=== PATIENT | male | born 1965 | race Two or more races ===

== ENCOUNTER 2020-02-15 15:24 | Inpatient (IN) | payer OTHER ==
[~2020-02-15] VITALS: Ht 170.2 cm; Wt 130.1 kg
[~2020-02-15 15:24] MED LIST: ASPI-728 PO; HYDR-3971 PO; INSLAN SQ; METF-960 PO; OMEP20 PO
[2020-02-15 17:14] LABS: ABG A-A DIFF O2 589.6 mmHg (10-20.0); ABG CARBOXYHEMOGLOBIN 1.4 % (0.0-1.5); ABG METHEMOGLOBIN 0.3 % (0.0-1.5); ABG OXYGEN CONTENT 18.6 mL/dL (15.0-23.0); ABG OXYGEN SATURATION 96.4 % (95.0-98.0); ABG OXYHEMOGLOBIN 94.8 % (94.0-100.0); ABG PCO2 39 mmHg (35-45); ABG PH 7.386 (7.35-7.450); ABG TOTAL HEMOGLOBIN 13.9 G/dL (12.0-18.0); PO2, ARTERIAL BG 84.2 mmHg (84.0-92.0); SOURCE, BLOOD GAS ARTERIAL; TEMPERATURE, FAHRENHEIT, BG 98.6 FAHREN (96.0-98.6)
[2020-02-15 17:15] LABS: O2 DEVICE,BLOOD GAS NON REBREATHER (ROOM AIR); SITE, BLOOD GAS RT BRACHIAL
[2020-02-15 17:16] LABS: BASOPHILS % (AUTO) 0.1 % (0.0-2.0); EOSINOPHILS % (AUTO) 0.1 % (1.0-6.0); HEMATOCRIT 40.3 % (41-53); HEMOGLOBIN 13.1 g/dL (13.5-17.5); LYMPHOCYTES # (AUTO) 0.5 K/uL (1.0-4.8); LYMPHOCYTES % (AUTO) 14.9 % (22.0-44.0); MEAN CORPUSCULAR HEMOGLOBIN 28.5 pg (26.0-34.0); MEAN CORPUSCULAR HGB CONC 32.6 G/dL (31.0-37.0); MEAN CORPUSCULAR VOLUME 87 fL (80-100); MONOCYTES # (AUTO) 0.4 K/uL (0.1-1.0); MONOCYTES % (AUTO) 11.7 % (2.0-9.0); NEUTROPHILS # (AUTO) 2.5 K/uL (1.8-7.7); NEUTROPHILS % (AUTO) 73.2 % (40.0-70.0); PLATELET COUNT (AUTO) 96 K/uL (150-450); RED BLOOD CELL COUNT(AUTO) 4.61 MIL/uL (4.50-5.90); RED CELL DISTRIBUTION WIDTH 15.6 % (11.5-14.5)
[2020-02-15 17:24] LABS: ANION GAP 8 mmol/L (8-16); CALCIUM, TOTAL 8.2 mg/dL (8.8-10.5); CARBON DIOXIDE 25 mmol/L (22-29); CHLORIDE 103 mmol/L (98-107); CREATININE 1.17 mg/dL (0.60-1.30); GLOMERULAR FILTR. RATE CALC > 60 mL/min (>60); GLUCOSE,RANDOM 248 mg/dL (70-110); POTASSIUM 4.8 mmol/L (3.5-5.1); SODIUM SERUM 136 mmol/L (136-145); UREA NITROGEN, BLOOD 19 mg/dL (7-18)
[2020-02-15 17:29] LABS: D-DIMER 0.55 mg/L FEU (0.00-0.50); INR 0.9 (0.9-1.1); PROTHROMBIN TIME 9.8 SEC (9.4-11.6)
[2020-02-15 17:32] LABS: LACTIC ACID 1.6 mmol/L (0.4-2.0)
[2020-02-15 17:33] LABS: PLATELET MORPHOLOGY COMMENT LARGE PLTS PRESENT
[2020-02-15] MEDS ORDERED: ACETAMINOPHEN 500 MG TABLET PO ONE (17:45)
[2020-02-15 17:49] LABS: ALANINE AMINOTRANSFERASE 86 U/L (12-78); ALBUMIN 2.9 g/dL (3.4-5.0); ALKALINE PHOSPHATASE 216 U/L (46-116); ASPARTATE AMINOTRANSFERASE 110 U/L (15-37); BILIRUBIN,TOTAL 1.4 mg/dL (0.1-1.0); CREATINE KINASE, TOTAL ONLY 374 U/L (39-308); FERRITIN 339 ng/mL (26-388); LACTATE DEHYDROGENASE 560 U/L (85-227); TOTAL PROTEIN, SERUM 7.4 g/dL (6.4-8.2)
[2020-02-15 18:23] LABS: ERYTHROCYTE SEDIMENTATION RATE 36 MM/HR (0-15)
[2020-02-15] MEDS ORDERED: ONDANSETRON HCL 4 MG/2 ML VIAL IVP PRN ×2 (19:00→19:15)
[2020-02-15] MEDS ORDERED: ACETAMINOPHEN 325 MG TABLET PO PRN (19:00)
[2020-02-15] MEDS ORDERED: DEXTROSE 50%-WATER 25 GM/50 ML SYRINGE IVP PRN (19:15)
[2020-02-15] MEDS ORDERED: REMDESIVIR 200 MG in SODIUM CHLORIDE 0.9% 250 ML IV ONE (19:15)
[2020-02-15] MEDS ORDERED: MAGNESIUM SULFATE 2 GM/WATER 50 ML IV PRN (19:15)
[2020-02-15] MEDS ORDERED: MAGNESIUM SULFATE 4 GM/WATER 100 ML IV PRN (19:15)
[2020-02-15] MEDS ORDERED: MAGNESIUM OXIDE 400 MG TABLET PO PRN (19:15)
[2020-02-15] MEDS ORDERED: POTASSIUM CHLORIDE 20 MEQ ER TABLET PO PRN (19:15)
[2020-02-15] MEDS: DEXAMETHASONE SOD PHOS 4 MG/ML VIAL IVP SCH (19:25)
[2020-02-15] MEDS: INSULIN GLARGINE,HUM.REC.ANLOG 100 UNITS/ML SQ SCH (20:36)
[2020-02-15 20:56] LABS: GLUCOSE,POINT OF CARE 234 MG/DL (70-110)
[2020-02-15] MEDS: ZINC SULFATE 220 MG CAPSULE PO SCH (21:16)
[2020-02-15] MEDS: INSULIN LISPRO 100 UNITS/ML SQ PRN (21:17)
[2020-02-15] MEDS: ASCORBIC ACID 500 MG TABLET PO SCH (21:18)
[2020-02-15] MEDS: HEPARIN SODIUM,PORCINE 5,000 UNITS/ML VIAL SQ SCH (23:43)
[2020-02-16] MEDS: ACETAMINOPHEN 325 MG TABLET PO PRN ×2 (03:29→21:40)
[2020-02-16 08:09] LABS: ALBUMIN 2.8 g/dL (3.4-5.0); BILIRUBIN,TOTAL 1.5 mg/dL (0.1-1.0); CREATININE 1.33 mg/dL (0.60-1.30); MAGNESIUM 1.9 mg/dL (1.80-2.40); POTASSIUM 5.1 mmol/L (3.5-5.1); TOTAL PROTEIN, SERUM 7.5 g/dL (6.4-8.2)
[2020-02-16] MEDS: DEXAMETHASONE SOD PHOS 4 MG/ML VIAL IVP SCH (08:23)
[2020-02-16] MEDS: HEPARIN SODIUM,PORCINE 5,000 UNITS/ML VIAL SQ SCH (08:23)
[2020-02-16] MEDS: ZINC SULFATE 220 MG CAPSULE PO SCH ×2 (08:24→21:22)
[2020-02-16] MEDS: ASCORBIC ACID 500 MG TABLET PO SCH ×2 (08:24→21:22)
[2020-02-16] MEDS: INSULIN LISPRO 100 UNITS/ML SQ PRN ×2 (08:26→21:23)
[2020-02-16] MEDS ORDERED: OMEPRAZOLE 20 MG CAPSULE PO SCH (09:00)
[2020-02-16] MEDS: APIXABAN 5 MG TABLET PO SCH ×2 (09:48→21:22)
[2020-02-16 16:07] LABS: ABG A-A DIFF O2 612.7 mmHg (10-20.0); ABG BASE EXCESS -3.5 mmol/L (-2.0-3.0); ABG CARBOXYHEMOGLOBIN 1.6 % (0.0-1.5); ABG HCO3 21.5 mmol/L (22.0-26.0); ABG METHEMOGLOBIN 0.3 % (0.0-1.5); ABG OXYGEN SATURATION 89.9 % (95.0-98.0); ABG OXYHEMOGLOBIN 88.2 % (94.0-100.0); ABG PCO2 43 mmHg (35-45); ABG PH 7.335 (7.35-7.450); ABG TOTAL HEMOGLOBIN 14.5 G/dL (12.0-18.0); PO2, ARTERIAL BG 57.4 mmHg (84.0-92.0); SOURCE, BLOOD GAS ARTERIAL; TEMPERATURE, FAHRENHEIT, BG 98.6 FAHREN (96.0-98.6)
[2020-02-16 16:08] LABS: O2 DEVICE,BLOOD GAS NONREBREATHER (ROOM AIR); SITE, BLOOD GAS LFT RADIAL
[2020-02-16 16:40] LABS: D-DIMER 0.68 mg/L FEU (0.00-0.50)
[2020-02-16 16:51] LABS: C-REACTIVE PROTEIN QUANT 12.04 mg/dL (0.00-0.30)
[2020-02-16] MEDS: REMDESIVIR 100 MG in SODIUM CHLORIDE 0.9% 250 ML IV SCH (17:26)
[2020-02-16 20:00] VITALS: BP 143/86
[2020-02-16 20:20] LABS: GLUCOSE,POINT OF CARE 309 MG/DL (70-110)
[2020-02-16] MEDS: CHOLECALCIFEROL (VIT D3) 2,000 UNITS [50 MCG] TABLET PO SCH (21:22)
[2020-02-16] MEDS: FAMOTIDINE 20 MG TABLET PO SCH (21:22)
[2020-02-16] MEDS: INSULIN GLARGINE,HUM.REC.ANLOG 100 UNITS/ML SQ SCH (21:23)
[2020-02-17] VITALS (16 sets, daily range): BP systolic 104–152; BP diastolic 56–88
[2020-02-17 01:52] LABS: APPEARANCE,URINE CLEAR (CLEAR); GLUCOSE, URINE (UA) >=1000 mg/dL (NEGATIVE); KETONES,URINE >=80 mg/dL (NEGATIVE); LEUKOCYTE ESTERASE ,URINE NEGATIVE (NEGATIVE); NITRATE,URINE NEGATIVE (NEGATIVE); OCCULT BLOOD,URINE MODERATE (NEGATIVE); PROTEIN,URINE POS 1+ (NEGATIVE)
[2020-02-17 01:54] LABS: BILIRUBIN,URINE PRELIM. POSITIVE (NEGATIVE)
[2020-02-17 02:06] LABS: BACTERIA,URINE Few /HPF (None Seen); SQUAMOUS EPITHELIAL CELL,UR Few /LPF (None Seen); WBC,URINE 0-2 /HPF (0-5)
[2020-02-17 02:59] LABS: GLUCOSE,POINT OF CARE 276 MG/DL (70-110)
[2020-02-17 05:28] LABS: BASOPHILS % (AUTO) 0.1 % (0.0-2.0); EOSINOPHILS % (AUTO) 0 % (1.0-6.0); HEMATOCRIT 41.1 % (41-53); HEMOGLOBIN 13.3 g/dL (13.5-17.5); LYMPHOCYTES # (AUTO) 0.5 K/uL (1.0-4.8); LYMPHOCYTES % (AUTO) 9.3 % (22.0-44.0); MEAN CORPUSCULAR HEMOGLOBIN 28.3 pg (26.0-34.0); MEAN CORPUSCULAR HGB CONC 32.4 G/dL (31.0-37.0); MEAN CORPUSCULAR VOLUME 87 fL (80-100); MONOCYTES # (AUTO) 0.8 K/uL (0.1-1.0); MONOCYTES % (AUTO) 13.7 % (2.0-9.0); NEUTROPHILS # (AUTO) 4.5 K/uL (1.8-7.7); NEUTROPHILS % (AUTO) 76.9 % (40.0-70.0); PLATELET COUNT (AUTO) 141 K/uL (150-450); RED BLOOD CELL COUNT(AUTO) 4.72 MIL/uL (4.50-5.90); RED CELL DISTRIBUTION WIDTH 15.9 % (11.5-14.5)
[2020-02-17 06:01] LABS: ALANINE AMINOTRANSFERASE 101 U/L (12-78); ALBUMIN 2.7 g/dL (3.4-5.0); ALKALINE PHOSPHATASE 195 U/L (46-116); ANION GAP 8 mmol/L (8-16); ASPARTATE AMINOTRANSFERASE 101 U/L (15-37); BILIRUBIN,TOTAL 1.1 mg/dL (0.1-1.0); C-REACTIVE PROTEIN QUANT 12.47 mg/dL (0.00-0.30); CALCIUM, TOTAL 8.4 mg/dL (8.8-10.5); CARBON DIOXIDE 25 mmol/L (22-29); CHLORIDE 105 mmol/L (98-107); CREATINE KINASE, TOTAL ONLY 151 U/L (39-308); CREATININE 1.23 mg/dL (0.60-1.30); GLOMERULAR FILTR. RATE CALC > 60 mL/min (>60); GLUCOSE,RANDOM 324 mg/dL (70-110); LACTATE DEHYDROGENASE 681 U/L (85-227); POTASSIUM 4.9 mmol/L (3.5-5.1); SODIUM SERUM 138 mmol/L (136-145); TOTAL PROTEIN, SERUM 7.3 g/dL (6.4-8.2); UREA NITROGEN, BLOOD 33 mg/dL (7-18)
[2020-02-17] MEDS: INSULIN LISPRO 100 UNITS/ML SQ PRN ×3 (07:02→21:23)
[2020-02-17 07:45] LABS: GLUCOSE,POINT OF CARE 262 MG/DL (70-110)
[2020-02-17] MEDS: FAMOTIDINE 20 MG TABLET PO SCH ×2 (08:56→23:19)
[2020-02-17] MEDS: APIXABAN 5 MG TABLET PO SCH (08:56)
[2020-02-17] MEDS: ZINC SULFATE 220 MG CAPSULE PO SCH ×2 (08:56→21:25)
[2020-02-17] MEDS: DEXAMETHASONE SOD PHOS 4 MG/ML VIAL IVP SCH (08:56)
[2020-02-17] MEDS: ASCORBIC ACID 500 MG TABLET PO SCH ×2 (10:50→23:19)
[2020-02-17] MEDS: CHOLECALCIFEROL (VIT D3) 2,000 UNITS [50 MCG] TABLET PO SCH (10:50)
[2020-02-17 11:00] LABS: ABG A-A DIFF O2 627.2 mmHg (10-20.0); ABG BASE EXCESS -2.7 mmol/L (-2.0-3.0); ABG CARBOXYHEMOGLOBIN 0.6 % (0.0-1.5); ABG HCO3 21.9 mmol/L (22.0-26.0); ABG OXYGEN CONTENT 15.9 mL/dL (15.0-23.0); ABG OXYHEMOGLOBIN 80.2 % (94.0-100.0); ABG PCO2 42 mmHg (35-45); ABG PH 7.351 (7.35-7.450); ABG TOTAL HEMOGLOBIN 14.1 G/dL (12.0-18.0); PO2, ARTERIAL BG 43.9 mmHg (84.0-92.0); SOURCE, BLOOD GAS ARTERIAL; TEMPERATURE, FAHRENHEIT, BG 98.5 FAHREN (96.0-98.6)
[2020-02-17 11:01] LABS: ABG OXYGEN SATURATION 80.7 % (95.0-98.0); O2 DEVICE,BLOOD GAS HI FL CANNULA (ROOM AIR); SITE, BLOOD GAS RT BRACHIAL
[2020-02-17] MEDS ORDERED: MIDAZOLAM HCL 2 MG/2 ML VIAL ONE ×3 (11:32→12:36)
[2020-02-17] MEDS ORDERED: FentaNYL CITRATE PF 100 MCG/2 ML VIAL ONE (11:32)
[2020-02-17] MEDS ORDERED: PROPOFOL 1000 MG/ISO-OSM 100 ML IV ONE (11:42)
[2020-02-17] MEDS ORDERED: HEPARIN SODIUM 1000 UNITS/NS 500 ML ONE (11:44)
[2020-02-17] MEDS: PROPOFOL 1000 MG/ISO-OSM 100 ML IV PRN ×4 (12:45→21:21)
[2020-02-17 13:30] LABS: ABG A-A DIFF O2 597.3 mmHg (10-20.0); ABG BASE EXCESS -4.9 mmol/L (-2.0-3.0); ABG CARBOXYHEMOGLOBIN 0.3 % (0.0-1.5); ABG HCO3 20.7 mmol/L (22.0-26.0); ABG METHEMOGLOBIN 0.1 % (0.0-1.5); ABG OXYGEN CONTENT 17.8 mL/dL (15.0-23.0); ABG OXYGEN SATURATION 95.4 % (95.0-98.0); ABG PCO2 39 mmHg (35-45); ABG PH 7.347 (7.35-7.450); ABG TOTAL HEMOGLOBIN 13.3 G/dL (12.0-18.0); PO2, ARTERIAL BG 78.3 mmHg (84.0-92.0); SOURCE, BLOOD GAS ARTERIAL; TEMPERATURE, FAHRENHEIT, BG 97.7 FAHREN (96.0-98.6)
[2020-02-17 13:31] LABS: O2 DEVICE,BLOOD GAS VENTILATOR (ROOM AIR); PEEP,BG 8 cm H2O; SITE, BLOOD GAS ARTERIAL LINE; SPONTANEOUS VT, BG 580 ml; VENT MODE, BG Press. Control Vent (ROOM AIR)
[2020-02-17] MEDS ORDERED: NOREPINEPHRINE 4 MG/D5%-WATER 250 ML IV PRN (14:00)
[2020-02-17] MEDS: FentaNYL CITRATE PF 500 MCG in DEXTROSE 5%-WATER 90 ML IV PRN (14:24)
[2020-02-17] MEDS: CISATRACURIUM BESYLATE 50 MG in DEXTROSE 5%-WATER 245 ML IV PRN (15:03)
[2020-02-17] MEDS ORDERED: HEPARIN SODIUM 25000 UNITS/D5W 250 ML IV PRN (16:30)
[2020-02-17] MEDS ORDERED: HEPARIN SODIUM,PORCINE 5,000 UNITS/ML VIAL IVP PRN ×2 (16:30)
[2020-02-17] MEDS: REMDESIVIR 100 MG in SODIUM CHLORIDE 0.9% 250 ML IV SCH (17:35)
[2020-02-17 17:36] LABS: EOSINOPHILS % (AUTO) 0 % (1.0-6.0); HEMOGLOBIN 12.5 g/dL (13.5-17.5); LYMPHOCYTES # (AUTO) 0.4 K/uL (1.0-4.8); LYMPHOCYTES % (AUTO) 7.9 % (22.0-44.0); MEAN CORPUSCULAR HEMOGLOBIN 28.5 pg (26.0-34.0); MEAN CORPUSCULAR HGB CONC 32.9 G/dL (31.0-37.0); MEAN CORPUSCULAR VOLUME 87 fL (80-100); MONOCYTES # (AUTO) 0.6 K/uL (0.1-1.0); MONOCYTES % (AUTO) 11.2 % (2.0-9.0); NEUTROPHILS # (AUTO) 4.3 K/uL (1.8-7.7); NEUTROPHILS % (AUTO) 80.9 % (40.0-70.0); PLATELET COUNT (AUTO) 130 K/uL (150-450); RED BLOOD CELL COUNT(AUTO) 4.38 MIL/uL (4.50-5.90); RED CELL DISTRIBUTION WIDTH 15.4 % (11.5-14.5)
[2020-02-17 18:00] LABS: GLUCOSE,POINT OF CARE 311 MG/DL (70-110)
[2020-02-17 18:00] LABS: GLUCOSE,POINT OF CARE 315 MG/DL (70-110)
[2020-02-17 19:35] LABS: PROTHROMBIN TIME 10.9 SEC (9.4-11.6)
[2020-02-17 19:44] LABS: GLUCOSE,POINT OF CARE 334 MG/DL (70-110)
[2020-02-17] MEDS: INSULIN GLARGINE,HUM.REC.ANLOG 100 UNITS/ML SQ SCH (21:24)
[2020-02-18] VITALS (22 sets, daily range): BP systolic 99–158; BP diastolic 49–84
[2020-02-18] MEDS: PROPOFOL 1000 MG/ISO-OSM 100 ML IV PRN ×9 (00:28→23:51)
[2020-02-18] MEDS: FentaNYL CITRATE PF 500 MCG in DEXTROSE 5%-WATER 90 ML IV PRN ×2 (01:48→13:01)
[2020-02-18 05:44] LABS: BASOPHILS % (AUTO) 0.1 % (0.0-2.0); EOSINOPHILS % (AUTO) 0 % (1.0-6.0); HEMATOCRIT 38.6 % (41-53); HEMOGLOBIN 12.3 g/dL (13.5-17.5); LYMPHOCYTES # (AUTO) 0.5 K/uL (1.0-4.8); MEAN CORPUSCULAR HEMOGLOBIN 28.1 pg (26.0-34.0); MEAN CORPUSCULAR VOLUME 88 fL (80-100); MONOCYTES # (AUTO) 0.8 K/uL (0.1-1.0); MONOCYTES % (AUTO) 12.5 % (2.0-9.0); NEUTROPHILS % (AUTO) 79.4 % (40.0-70.0); PLATELET COUNT (AUTO) 139 K/uL (150-450); RED CELL DISTRIBUTION WIDTH 15.9 % (11.5-14.5)
[2020-02-18 06:10] LABS: ALBUMIN 2.4 g/dL (3.4-5.0); BILIRUBIN,TOTAL 0.9 mg/dL (0.1-1.0); C-REACTIVE PROTEIN QUANT 7.34 mg/dL (0.00-0.30); CREATININE 1.42 mg/dL (0.60-1.30); POTASSIUM 4.7 mmol/L (3.5-5.1); TOTAL PROTEIN, SERUM 6.3 g/dL (6.4-8.2)
[2020-02-18] MEDS ORDERED: LIDOCAINE/PF 2% 5 ML SYRINGE IVP ONE (06:31)
[2020-02-18] MEDS ORDERED: ROCURONIUM BROMIDE 10 MG/ML 5 ML VIAL IVP ONE (06:31)
[2020-02-18] MEDS ORDERED: 0.9% SODIUM CHLORIDE 10 ML VIAL IVP ONE (06:31)
[2020-02-18] MEDS ORDERED: ETOMIDATE 2 MG/ML 10 ML VIAL IVP ONE (06:31)
[2020-02-18 07:45] LABS: GLUCOSE,POINT OF CARE 358 MG/DL (70-110)
[2020-02-18] MEDS: INSULIN LISPRO 100 UNITS/ML SQ PRN ×4 (07:48→23:27)
[2020-02-18] MEDS: PANTOPRAZOLE SODIUM 40 MG/VIAL IVP SCH ×2 (09:15→23:16)
[2020-02-18] MEDS: INSULIN GLARGINE,HUM.REC.ANLOG 100 UNITS/ML SQ SCH ×2 (09:16→23:26)
[2020-02-18] MEDS: DEXAMETHASONE SOD PHOS 4 MG/ML VIAL IVP SCH (09:16)
[2020-02-18 12:28] LABS: GLUCOSE,POINT OF CARE 321 MG/DL (70-110)
[2020-02-18 14:49] LABS: ABG A-A DIFF O2 543.5 mmHg (10-20.0); ABG BASE EXCESS -0.6 mmol/L (-2.0-3.0); ABG CARBOXYHEMOGLOBIN 0.4 % (0.0-1.5); ABG METHEMOGLOBIN 0.3 % (0.0-1.5); ABG OXYGEN CONTENT 17.2 mL/dL (15.0-23.0); ABG OXYGEN SATURATION 93.2 % (95.0-98.0); ABG OXYHEMOGLOBIN 92.5 % (94.0-100.0); ABG PCO2 38 mmHg (35-45); ABG TOTAL HEMOGLOBIN 13.2 G/dL (12.0-18.0); PO2, ARTERIAL BG 62.3 mmHg (84.0-92.0); SOURCE, BLOOD GAS ARTERIAL; TEMPERATURE, FAHRENHEIT, BG 96.4 FAHREN (96.0-98.6)
[2020-02-18 14:50] LABS: O2 DEVICE,BLOOD GAS VENTILATOR (ROOM AIR); PEEP,BG 8 cm H2O; SITE, BLOOD GAS ARTERIAL LINE; VENT MODE, BG Press. Control Vent (ROOM AIR); VT, ABG 580 ml
[2020-02-18] MEDS: REMDESIVIR 100 MG in SODIUM CHLORIDE 0.9% 250 ML IV SCH (17:13)
[2020-02-18 19:26] LABS: GLUCOSE,POINT OF CARE 300 MG/DL (70-110)
[2020-02-18] MEDS: CISATRACURIUM BESYLATE 50 MG in DEXTROSE 5%-WATER 245 ML IV PRN (22:32)
[2020-02-18] MEDS ORDERED: SODIUM CHLORIDE 0.9% 250 ML IV ONE (23:37)
[2020-02-19] VITALS (12 sets, daily range): BP systolic 100–145; BP diastolic 56–81
[2020-02-19] MEDS: FentaNYL CITRATE PF 500 MCG in DEXTROSE 5%-WATER 90 ML IV PRN ×4 (00:08→18:46)
[2020-02-19] MEDS: CISATRACURIUM BESYLATE 50 MG in DEXTROSE 5%-WATER 245 ML IV PRN ×6 (01:28→23:41)
[2020-02-19] MEDS ORDERED: PNEUMOCOCCAL VACCINE POLYVALENT 0.5 ML VIAL [PPSV23] IM ONE (01:30)
[2020-02-19] MEDS ORDERED: INFLUENZA VIRUS VACCINE QVS 2020-21 (6MO+)/PF 60 MCG/0.5 ML SYRINGE IM ONE (01:30)
[2020-02-19] MEDS: PROPOFOL 1000 MG/ISO-OSM 100 ML IV PRN ×8 (01:53→21:51)
[2020-02-19 03:25] LABS: GLUCOSE,POINT OF CARE 299 MG/DL (70-110)
[2020-02-19 05:13] LABS: BASOPHILS % (AUTO) 0.1 % (0.0-2.0); EOSINOPHILS % (AUTO) 0.3 % (1.0-6.0); HEMATOCRIT 37.7 % (41-53); HEMOGLOBIN 12.3 g/dL (13.5-17.5); LYMPHOCYTES # (AUTO) 0.6 K/uL (1.0-4.8); LYMPHOCYTES % (AUTO) 7.1 % (22.0-44.0); MEAN CORPUSCULAR HEMOGLOBIN 28.3 pg (26.0-34.0); MEAN CORPUSCULAR HGB CONC 32.7 G/dL (31.0-37.0); MEAN CORPUSCULAR VOLUME 86 fL (80-100); MONOCYTES # (AUTO) 0.7 K/uL (0.1-1.0); MONOCYTES % (AUTO) 9.4 % (2.0-9.0); NEUTROPHILS # (AUTO) 6.4 K/uL (1.8-7.7); NEUTROPHILS % (AUTO) 83.1 % (40.0-70.0); PLATELET COUNT (AUTO) 137 K/uL (150-450); RED BLOOD CELL COUNT(AUTO) 4.36 MIL/uL (4.50-5.90); RED CELL DISTRIBUTION WIDTH 15.4 % (11.5-14.5)
[2020-02-19] MEDS: INSULIN LISPRO 100 UNITS/ML SQ PRN ×4 (05:25→23:33)
[2020-02-19 05:32] LABS: ALANINE AMINOTRANSFERASE 62 U/L (12-78); ALBUMIN 2.2 g/dL (3.4-5.0); ALKALINE PHOSPHATASE 170 U/L (46-116); ANION GAP 6 mmol/L (8-16); ASPARTATE AMINOTRANSFERASE 46 U/L (15-37); C-REACTIVE PROTEIN QUANT 6.68 mg/dL (0.00-0.30); CALCIUM, TOTAL 7.7 mg/dL (8.8-10.5); CARBON DIOXIDE 26 mmol/L (22-29); CHLORIDE 105 mmol/L (98-107); CREATININE 0.99 mg/dL (0.60-1.30); GLOMERULAR FILTR. RATE CALC > 60 mL/min (>60); GLUCOSE,RANDOM 360 mg/dL (70-110); POTASSIUM 4.1 mmol/L (3.5-5.1); SODIUM SERUM 137 mmol/L (136-145); TOTAL PROTEIN, SERUM 6.1 g/dL (6.4-8.2); UREA NITROGEN, BLOOD 32 mg/dL (7-18)
[2020-02-19 05:33] LABS: GLUCOSE,POINT OF CARE 317 MG/DL (70-110)
[2020-02-19] MEDS: DEXAMETHASONE SOD PHOS 4 MG/ML VIAL IVP SCH (08:44)
[2020-02-19] MEDS: PANTOPRAZOLE SODIUM 40 MG/VIAL IVP SCH ×2 (08:44→20:20)
[2020-02-19] MEDS: INSULIN GLARGINE,HUM.REC.ANLOG 100 UNITS/ML SQ SCH ×2 (08:47→20:22)
[2020-02-19 12:07] LABS: ABG A-A DIFF O2 536.7 mmHg (10-20.0); ABG BASE EXCESS -5.6 mmol/L (-2.0-3.0); ABG CARBOXYHEMOGLOBIN 1.6 % (0.0-1.5); ABG METHEMOGLOBIN 0.3 % (0.0-1.5); ABG OXYGEN CONTENT 16.5 mL/dL (15.0-23.0); ABG OXYGEN SATURATION 84.8 % (95.0-98.0); ABG OXYHEMOGLOBIN 83.2 % (94.0-100.0); ABG PCO2 56 mmHg (35-45); ABG PH 7.216 (7.35-7.450); ABG TOTAL HEMOGLOBIN 14.1 G/dL (12.0-18.0); PO2, ARTERIAL BG 51.7 mmHg (84.0-92.0); SOURCE, BLOOD GAS ARTERIAL; TEMPERATURE, FAHRENHEIT, BG 95.6 FAHREN (96.0-98.6)
[2020-02-19 12:08] LABS: O2 DEVICE,BLOOD GAS VENTILATOR (ROOM AIR); PEEP,BG 8 cm H2O; SITE, BLOOD GAS ARTERIAL LINE; VENT MODE, BG Press. Control Vent (ROOM AIR)
[2020-02-19] MEDS ORDERED: SODIUM CHLORIDE 0.9% 250 ML IV ONE ×2 (12:25→22:39)
[2020-02-19] MEDS ORDERED: DEXTROSE 50%-WATER 25 GM/50 ML SYRINGE IVP PRN (12:45)
[2020-02-19] MEDS: ZINC SULFATE 220 MG CAPSULE PO SCH ×2 (13:13→20:20)
[2020-02-19] MEDS: ASCORBIC ACID 500 MG TABLET PO SCH ×2 (13:13→20:20)
[2020-02-19] MEDS: CHOLECALCIFEROL (VIT D3) 1,000 UNITS [25 MCG] TABLET PO SCH (13:13)
[2020-02-19 13:27] LABS: GLUCOSE,POINT OF CARE 333 MG/DL (70-110)
[2020-02-19 14:46] LABS: ABG A-A DIFF O2 465.4 mmHg (10-20.0); ABG BASE EXCESS -3.1 mmol/L (-2.0-3.0); ABG CARBOXYHEMOGLOBIN 0.9 % (0.0-1.5); ABG METHEMOGLOBIN 0.3 % (0.0-1.5); ABG OXYGEN CONTENT 16.5 mL/dL (15.0-23.0); ABG OXYGEN SATURATION 86.5 % (95.0-98.0); ABG OXYHEMOGLOBIN 85.5 % (94.0-100.0); ABG PCO2 54 mmHg (35-45); ABG PH 7.262 (7.35-7.450); ABG TOTAL HEMOGLOBIN 13.7 G/dL (12.0-18.0); O2 DEVICE,BLOOD GAS VENTILATOR (ROOM AIR); PEEP,BG 10 cm H2O; PO2, ARTERIAL BG 51.5 mmHg (84.0-92.0); SITE, BLOOD GAS ARTERIAL LINE; SOURCE, BLOOD GAS ARTERIAL; TEMPERATURE, FAHRENHEIT, BG 95.8 FAHREN (96.0-98.6); VENT MODE, BG Press. Control Vent (ROOM AIR)
[2020-02-19] MEDS: REMDESIVIR 100 MG in SODIUM CHLORIDE 0.9% 250 ML IV SCH (17:13)
[2020-02-19 17:49] LABS: GLUCOSE,POINT OF CARE 384 MG/DL (70-110)
[2020-02-19] MEDS: APIXABAN 2.5 MG TABLET PO SCH (20:20)
[2020-02-19] MEDS ORDERED: APIXABAN 5 MG TABLET PO SCH (21:00)
[2020-02-19] MEDS ORDERED: SODIUM CHLORIDE 0.9% 500 ML IV ONE (21:53)
[2020-02-19 23:31] LABS: GLUCOSE,POINT OF CARE 349 MG/DL (70-110)
[2020-02-20] VITALS (7 sets, daily range): BP systolic 96–173; BP diastolic 53–78
[2020-02-20] MEDS: PROPOFOL 1000 MG/ISO-OSM 100 ML IV PRN ×8 (00:28→22:42)
[2020-02-20] MEDS: FentaNYL CITRATE PF 500 MCG in DEXTROSE 5%-WATER 90 ML IV PRN ×4 (01:23→19:56)
[2020-02-20 01:45] LABS: GLUCOSE,POINT OF CARE 375 MG/DL (70-110)
[2020-02-20] MEDS: CISATRACURIUM BESYLATE 50 MG in DEXTROSE 5%-WATER 245 ML IV PRN ×5 (03:33→23:20)
[2020-02-20] MEDS: INSULIN LISPRO 100 UNITS/ML SQ PRN ×4 (05:41→20:58)
[2020-02-20 05:59] LABS: BASOPHILS % (AUTO) 0.1 % (0.0-2.0); EOSINOPHILS % (AUTO) 1.7 % (1.0-6.0); HEMATOCRIT 39.7 % (41-53); HEMOGLOBIN 13.1 g/dL (13.5-17.5); LYMPHOCYTES # (AUTO) 0.8 K/uL (1.0-4.8); LYMPHOCYTES % (AUTO) 9.8 % (22.0-44.0); MEAN CORPUSCULAR HEMOGLOBIN 28.7 pg (26.0-34.0); MEAN CORPUSCULAR VOLUME 87 fL (80-100); MONOCYTES # (AUTO) 0.7 K/uL (0.1-1.0); MONOCYTES % (AUTO) 7.7 % (2.0-9.0); NEUTROPHILS % (AUTO) 80.7 % (40.0-70.0); PLATELET COUNT (AUTO) 116 K/uL (150-450); RED BLOOD CELL COUNT(AUTO) 4.57 MIL/uL (4.50-5.90); RED CELL DISTRIBUTION WIDTH 15.5 % (11.5-14.5)
[2020-02-20 06:27] LABS: ALANINE AMINOTRANSFERASE 67 U/L (12-78); ALBUMIN 2.4 g/dL (3.4-5.0); ALKALINE PHOSPHATASE 194 U/L (46-116); ANION GAP 5 mmol/L (8-16); ASPARTATE AMINOTRANSFERASE 42 U/L (15-37); BILIRUBIN,TOTAL 1.3 mg/dL (0.1-1.0); C-REACTIVE PROTEIN QUANT 11.09 mg/dL (0.00-0.30); CALCIUM, TOTAL 8.1 mg/dL (8.8-10.5); CARBON DIOXIDE 28 mmol/L (22-29); CHLORIDE 102 mmol/L (98-107); GLOMERULAR FILTR. RATE CALC > 60 mL/min (>60); GLUCOSE,RANDOM 364 mg/dL (70-110); POTASSIUM 4.5 mmol/L (3.5-5.1); SODIUM SERUM 135 mmol/L (136-145); UREA NITROGEN, BLOOD 33 mg/dL (7-18)
[2020-02-20 07:05] LABS: GLUCOSE,POINT OF CARE 315 MG/DL (70-110)
[2020-02-20] MEDS: DEXAMETHASONE SOD PHOS 4 MG/ML VIAL IVP SCH (09:10)
[2020-02-20] MEDS: ZINC SULFATE 220 MG CAPSULE PO SCH ×2 (09:10→20:37)
[2020-02-20] MEDS: CHOLECALCIFEROL (VIT D3) 1,000 UNITS [25 MCG] TABLET PO SCH (09:11)
[2020-02-20] MEDS: ASCORBIC ACID 500 MG TABLET PO SCH ×2 (09:11→20:37)
[2020-02-20] MEDS: APIXABAN 2.5 MG TABLET PO SCH ×2 (09:11→20:37)
[2020-02-20] MEDS: PANTOPRAZOLE SODIUM 40 MG/VIAL IVP SCH ×2 (09:13→20:37)
[2020-02-20] MEDS: INSULIN GLARGINE,HUM.REC.ANLOG 100 UNITS/ML SQ SCH ×2 (09:14→20:57)
[2020-02-20 12:59] LABS: GLUCOSE,POINT OF CARE 314 MG/DL (70-110)
[2020-02-20 17:02] LABS: ABG BASE EXCESS 0.5 mmol/L (-2.0-3.0); ABG CARBOXYHEMOGLOBIN 1.1 % (0.0-1.5); ABG METHEMOGLOBIN 0.3 % (0.0-1.5); ABG OXYGEN CONTENT 17.1 mL/dL (15.0-23.0); ABG OXYGEN SATURATION 88.7 % (95.0-98.0); ABG OXYHEMOGLOBIN 87.5 % (94.0-100.0); ABG TOTAL HEMOGLOBIN 13.9 G/dL (12.0-18.0); PO2, ARTERIAL BG 60.2 mmHg (84.0-92.0); SOURCE, BLOOD GAS ARTERIAL; TEMPERATURE, FAHRENHEIT, BG 97.4 FAHREN (96.0-98.6)
[2020-02-20 17:15] LABS: ABG PCO2 75 mmHg (35-45); ABG PH 7.199 (7.35-7.450); O2 DEVICE,BLOOD GAS VENTILATOR (ROOM AIR); SITE, BLOOD GAS ARTERIAL LINE
[2020-02-20 17:16] LABS: INSPIRATORY TIME, BG 1.2 SEC; PEEP,BG 12 cm H2O; VENT MODE, BG Press. Control Vent (ROOM AIR)
[2020-02-20 18:19] LABS: GLUCOSE,POINT OF CARE 343 MG/DL (70-110)
[2020-02-20] MEDS ORDERED: SODIUM CHLORIDE 0.9% 250 ML IV ONE (20:35)
[2020-02-21] VITALS: BP 123/72
[2020-02-21] MEDS: INSULIN LISPRO 100 UNITS/ML SQ PRN ×4 (00:28→17:17)
[2020-02-21] MEDS: FentaNYL CITRATE PF 500 MCG in DEXTROSE 5%-WATER 90 ML IV PRN ×4 (01:08→19:55)
[2020-02-21] MEDS: PROPOFOL 1000 MG/ISO-OSM 100 ML IV PRN ×6 (02:33→21:54)
[2020-02-21 04:00] VITALS: BP 107/55
[2020-02-21] MEDS: CISATRACURIUM BESYLATE 50 MG in DEXTROSE 5%-WATER 245 ML IV PRN ×4 (04:53→20:00)
[2020-02-21 06:13] LABS: ALANINE AMINOTRANSFERASE 63 U/L (12-78); ALKALINE PHOSPHATASE 167 U/L (46-116); ANION GAP 6 mmol/L (8-16); ASPARTATE AMINOTRANSFERASE 46 U/L (15-37); BILIRUBIN,TOTAL 1.2 mg/dL (0.1-1.0); C-REACTIVE PROTEIN QUANT 8.59 mg/dL (0.00-0.30); CALCIUM, TOTAL 7.7 mg/dL (8.8-10.5); CARBON DIOXIDE 28 mmol/L (22-29); CHLORIDE 99 mmol/L (98-107); CREATININE 1.14 mg/dL (0.60-1.30); GLOMERULAR FILTR. RATE CALC > 60 mL/min (>60); GLUCOSE,RANDOM 295 mg/dL (70-110); POTASSIUM 4.1 mmol/L (3.5-5.1); SODIUM SERUM 133 mmol/L (136-145); UREA NITROGEN, BLOOD 31 mg/dL (7-18)
[2020-02-21 07:01] LABS: GLUCOSE,POINT OF CARE 265 MG/DL (70-110)
[2020-02-21 07:01] LABS: GLUCOSE,POINT OF CARE 290 MG/DL (70-110)
[2020-02-21 07:01] LABS: GLUCOSE,POINT OF CARE 312 MG/DL (70-110)
[2020-02-21 08:00] VITALS: BP 110/60
[2020-02-21] MEDS: PANTOPRAZOLE SODIUM 40 MG/VIAL IVP SCH ×2 (09:28→20:17)
[2020-02-21] MEDS: APIXABAN 2.5 MG TABLET PO SCH ×2 (09:30→20:17)
[2020-02-21] MEDS: DEXAMETHASONE SOD PHOS 4 MG/ML VIAL IVP SCH (09:30)
[2020-02-21] MEDS: CHOLECALCIFEROL (VIT D3) 1,000 UNITS [25 MCG] TABLET PO SCH (09:30)
[2020-02-21] MEDS: ASCORBIC ACID 500 MG TABLET PO SCH ×2 (09:31→20:17)
[2020-02-21] MEDS: ZINC SULFATE 220 MG CAPSULE PO SCH ×2 (10:03→20:17)
[2020-02-21] MEDS: INSULIN GLARGINE,HUM.REC.ANLOG 100 UNITS/ML SQ SCH ×2 (11:48→20:48)
[2020-02-21 11:52] LABS: GLUCOSE,POINT OF CARE 243 MG/DL (70-110)
[2020-02-21 12:00] VITALS: BP 153/68
[2020-02-21 16:00] VITALS: BP 109/58
[2020-02-21 16:44] LABS: ABG A-A DIFF O2 376.1 mmHg (10-20.0); ABG BASE EXCESS 1.1 mmol/L (-2.0-3.0); ABG CARBOXYHEMOGLOBIN 1.5 % (0.0-1.5); ABG HCO3 25.2 mmol/L (22.0-26.0); ABG METHEMOGLOBIN 0.3 % (0.0-1.5); ABG OXYGEN CONTENT 16.1 mL/dL (15.0-23.0); ABG OXYGEN SATURATION 95.3 % (95.0-98.0); ABG OXYHEMOGLOBIN 93.6 % (94.0-100.0); ABG PCO2 44 mmHg (35-45); ABG TOTAL HEMOGLOBIN 12.2 G/dL (12.0-18.0); PO2, ARTERIAL BG 75.7 mmHg (84.0-92.0); SOURCE, BLOOD GAS ARTERIAL; TEMPERATURE, FAHRENHEIT, BG 98.6 FAHREN (96.0-98.6)
[2020-02-21 16:47] LABS: O2 DEVICE,BLOOD GAS VENTILATOR (ROOM AIR); SITE, BLOOD GAS ARTERIAL LINE; VENT MODE, BG Press. Control Vent (ROOM AIR)
[2020-02-21 16:48] LABS: INSPIRATORY TIME, BG 0.9 SEC; PEEP,BG 14 cm H2O; VT, ABG 500 ml
[2020-02-21 20:00] VITALS: BP 145/74
[2020-02-22] VITALS: BP 115/59
[2020-02-22] MEDS ORDERED: SODIUM CHLORIDE 0.9% 250 ML IV ONE ×2 (00:16→08:57)
[2020-02-22] MEDS: FentaNYL CITRATE PF 500 MCG in DEXTROSE 5%-WATER 90 ML IV PRN ×7 (01:17→23:38)
[2020-02-22 02:04] LABS: GLUCOSE,POINT OF CARE 337 MG/DL (70-110)
[2020-02-22 02:04] LABS: GLUCOSE,POINT OF CARE 325 MG/DL (70-110)
[2020-02-22] MEDS: CISATRACURIUM BESYLATE 50 MG in DEXTROSE 5%-WATER 245 ML IV PRN ×5 (03:26→20:38)
[2020-02-22] MEDS: PROPOFOL 1000 MG/ISO-OSM 100 ML IV PRN ×8 (03:39→22:08)
[2020-02-22 04:00] VITALS: BP 126/67
[2020-02-22] MEDS: INSULIN LISPRO 100 UNITS/ML SQ PRN ×3 (05:24→17:25)
[2020-02-22 06:07] LABS: BASOPHILS % (AUTO) 0.3 % (0.0-2.0); EOSINOPHILS % (AUTO) 2.1 % (1.0-6.0); HEMATOCRIT 37.6 % (41-53); HEMOGLOBIN 12.2 g/dL (13.5-17.5); LYMPHOCYTES # (AUTO) 0.9 K/uL (1.0-4.8); LYMPHOCYTES % (AUTO) 7.7 % (22.0-44.0); MEAN CORPUSCULAR HEMOGLOBIN 28.3 pg (26.0-34.0); MEAN CORPUSCULAR HGB CONC 32.6 G/dL (31.0-37.0); MEAN CORPUSCULAR VOLUME 87 fL (80-100); MONOCYTES # (AUTO) 0.8 K/uL (0.1-1.0); MONOCYTES % (AUTO) 6.8 % (2.0-9.0); NEUTROPHILS # (AUTO) 10.1 K/uL (1.8-7.7); NEUTROPHILS % (AUTO) 83.1 % (40.0-70.0); PLATELET COUNT (AUTO) 147 K/uL (150-450); RED BLOOD CELL COUNT(AUTO) 4.32 MIL/uL (4.50-5.90); RED CELL DISTRIBUTION WIDTH 15.4 % (11.5-14.5)
[2020-02-22 06:08] LABS: GLUCOSE,POINT OF CARE 350 MG/DL (70-110)
[2020-02-22 06:30] LABS: ALANINE AMINOTRANSFERASE 70 U/L (12-78); ALBUMIN 2.1 g/dL (3.4-5.0); ALKALINE PHOSPHATASE 177 U/L (46-116); ANION GAP 3 mmol/L (8-16); ASPARTATE AMINOTRANSFERASE 49 U/L (15-37); BILIRUBIN,TOTAL 1.3 mg/dL (0.1-1.0); CARBON DIOXIDE 29 mmol/L (22-29); CHLORIDE 96 mmol/L (98-107); CREATININE 1.18 mg/dL (0.60-1.30); GLOMERULAR FILTR. RATE CALC > 60 mL/min (>60); GLUCOSE,RANDOM 339 mg/dL (70-110); POTASSIUM 4.5 mmol/L (3.5-5.1); SODIUM SERUM 128 mmol/L (136-145); TOTAL PROTEIN, SERUM 6.6 g/dL (6.4-8.2); UREA NITROGEN, BLOOD 31 mg/dL (7-18)
[2020-02-22 08:00] VITALS: BP 116/56
[2020-02-22 08:08] LABS: GLUCOSE,POINT OF CARE 282 MG/DL (70-110)
[2020-02-22] MEDS: DEXAMETHASONE SOD PHOS 4 MG/ML VIAL IVP SCH (08:36)
[2020-02-22] MEDS: PANTOPRAZOLE SODIUM 40 MG/VIAL IVP SCH (08:36)
[2020-02-22] MEDS: CHOLECALCIFEROL (VIT D3) 1,000 UNITS [25 MCG] TABLET PO SCH (08:37)
[2020-02-22] MEDS: ASCORBIC ACID 500 MG TABLET PO SCH ×2 (08:37→20:38)
[2020-02-22] MEDS: ZINC SULFATE 220 MG CAPSULE PO SCH ×2 (08:37→20:37)
[2020-02-22] MEDS: APIXABAN 2.5 MG TABLET PO SCH (08:37)
[2020-02-22] MEDS: INSULIN GLARGINE,HUM.REC.ANLOG 100 UNITS/ML SQ SCH ×2 (08:40→20:37)
[2020-02-22 11:02] LABS: ABG A-A DIFF O2 505.3 mmHg (10-20.0); ABG BASE EXCESS -1.4 mmol/L (-2.0-3.0); ABG CARBOXYHEMOGLOBIN 0.8 % (0.0-1.5); ABG HCO3 22.6 mmol/L (22.0-26.0); ABG METHEMOGLOBIN 0.3 % (0.0-1.5); ABG PCO2 58 mmHg (35-45); ABG PH 7.266 (7.35-7.450); ABG TOTAL HEMOGLOBIN 12.8 G/dL (12.0-18.0); O2 DEVICE,BLOOD GAS VENTILATOR (ROOM AIR); PEEP,BG 12 cm H2O; PO2, ARTERIAL BG 77.4 mmHg (84.0-92.0); SITE, BLOOD GAS ARTERIAL LINE; SOURCE, BLOOD GAS ARTERIAL; TEMPERATURE, FAHRENHEIT, BG 98.6 FAHREN (96.0-98.6); VENT MODE, BG Press. Control Vent (ROOM AIR)
[2020-02-22 11:03] LABS: SPONTANEOUS VT, BG 446 ml
[2020-02-22 11:35] LABS: GLUCOSE,POINT OF CARE 297 MG/DL (70-110)
[2020-02-22] MEDS: METOCLOPRAMIDE HCL 5 MG/ML 2 ML VIAL IVP PRN (11:51)
[2020-02-22 12:00] VITALS: BP 112/61
[2020-02-22 12:36] LABS: GLUCOSE,POINT OF CARE 351 MG/DL (70-110)
[2020-02-22 16:00] VITALS: BP 117/58
[2020-02-22 20:00] VITALS: BP 130/60
[2020-02-22 20:13] LABS: ABG A-A DIFF O2 366.7 mmHg (10-20.0); ABG BASE EXCESS 0.8 mmol/L (-2.0-3.0); ABG CARBOXYHEMOGLOBIN 0.9 % (0.0-1.5); ABG METHEMOGLOBIN 0.3 % (0.0-1.5); ABG OXYGEN CONTENT 16.2 mL/dL (15.0-23.0); ABG OXYHEMOGLOBIN 95.8 % (94.0-100.0); ABG PCO2 43 mmHg (35-45); ABG PH 7.392 (7.35-7.450); O2 DEVICE,BLOOD GAS VENTILATOR (ROOM AIR); PEEP,BG 12 cm H2O; SITE, BLOOD GAS ARTERIAL LINE; SOURCE, BLOOD GAS ARTERIAL; SPONTANEOUS VT, BG 484 ml; TEMPERATURE, FAHRENHEIT, BG 98.6 FAHREN (96.0-98.6); VENT MODE, BG Press. Control Vent (ROOM AIR)
[2020-02-22] MEDS: APIXABAN 5 MG TABLET PO SCH (20:36)
[2020-02-22] MEDS: FAMOTIDINE 10 MG/ML 2 ML VIAL IVP SCH (20:36)
[2020-02-22 20:42] LABS: GLUCOSE,POINT OF CARE 342 MG/DL (70-110)
[2020-02-22 22:43] LABS: GLUCOSE,POINT OF CARE 396 MG/DL (70-110)
[2020-02-23] VITALS: BP 139/73
[2020-02-23] MEDS: PROPOFOL 1000 MG/ISO-OSM 100 ML IV PRN ×10 (00:24→23:06)
[2020-02-23] MEDS: INSULIN LISPRO 100 UNITS/ML SQ PRN ×4 (01:03→18:16)
[2020-02-23] MEDS: CISATRACURIUM BESYLATE 50 MG in DEXTROSE 5%-WATER 245 ML IV PRN ×6 (01:44→23:07)
[2020-02-23] MEDS: FentaNYL CITRATE PF 500 MCG in DEXTROSE 5%-WATER 90 ML IV PRN ×7 (03:10→23:58)
[2020-02-23 04:00] VITALS: BP 127/72
[2020-02-23 04:00] LABS: GLUCOSE,POINT OF CARE 350 MG/DL (70-110)
[2020-02-23 06:30] LABS: GLUCOSE,POINT OF CARE 306 MG/DL (70-110)
[2020-02-23 06:31] LABS: ALBUMIN 1.8 g/dL (3.4-5.0); BILIRUBIN,TOTAL 1.4 mg/dL (0.1-1.0); C-REACTIVE PROTEIN QUANT 12.08 mg/dL (0.00-0.30); CALCIUM, TOTAL 7.6 mg/dL (8.8-10.5); CREATININE 1.66 mg/dL (0.60-1.30); PHOSPHORUS 4.4 mg/dL (2.5-4.9); TOTAL PROTEIN, SERUM 6.2 g/dL (6.4-8.2)
[2020-02-23 06:33] LABS: BASOPHILS % (AUTO) 0.2 % (0.0-2.0); HEMATOCRIT 33.8 % (41-53); LYMPHOCYTES # (AUTO) 0.6 K/uL (1.0-4.8); LYMPHOCYTES % (AUTO) 5.2 % (22.0-44.0); MEAN CORPUSCULAR HEMOGLOBIN 28.2 pg (26.0-34.0); MEAN CORPUSCULAR HGB CONC 32.5 G/dL (31.0-37.0); MEAN CORPUSCULAR VOLUME 87 fL (80-100); MONOCYTES # (AUTO) 1.3 K/uL (0.1-1.0); MONOCYTES % (AUTO) 11.8 % (2.0-9.0); NEUTROPHILS # (AUTO) 9.1 K/uL (1.8-7.7); NEUTROPHILS % (AUTO) 80.8 % (40.0-70.0); PLATELET COUNT (AUTO) 140 K/uL (150-450); RED CELL DISTRIBUTION WIDTH 15.4 % (11.5-14.5)
[2020-02-23] MEDS ORDERED: SODIUM CHLORIDE 0.9% 1,000 ML ONE (07:18)
[2020-02-23 08:00] VITALS: BP 124/69
[2020-02-23] MEDS: SODIUM CHLORIDE 0.9% 1,000 ML IV SCH (08:02)
[2020-02-23] MEDS: CHOLECALCIFEROL (VIT D3) 1,000 UNITS [25 MCG] TABLET PO SCH (08:59)
[2020-02-23] MEDS: FAMOTIDINE 10 MG/ML 2 ML VIAL IVP SCH ×2 (09:00→20:38)
[2020-02-23] MEDS: APIXABAN 5 MG TABLET PO SCH ×2 (09:00→20:38)
[2020-02-23] MEDS: DEXAMETHASONE SOD PHOS 4 MG/ML VIAL IVP SCH (09:00)
[2020-02-23] MEDS: ZINC SULFATE 220 MG CAPSULE PO SCH ×2 (09:01→20:38)
[2020-02-23] MEDS: ASCORBIC ACID 500 MG TABLET PO SCH ×2 (09:01→20:37)
[2020-02-23] MEDS: INSULIN GLARGINE,HUM.REC.ANLOG 100 UNITS/ML SQ SCH ×2 (09:10→20:39)
[2020-02-23] MEDS ORDERED: SODIUM CHLORIDE 0.9% 500 ML IV ONE (10:08)
[2020-02-23 12:00] VITALS: BP 110/49
[2020-02-23 12:39] LABS: ABG A-A DIFF O2 303.9 mmHg (10-20.0); ABG BASE EXCESS -0.2 mmol/L (-2.0-3.0); ABG CARBOXYHEMOGLOBIN 0.7 % (0.0-1.5); ABG HCO3 23.9 mmol/L (22.0-26.0); ABG METHEMOGLOBIN 0.3 % (0.0-1.5); ABG OXYGEN CONTENT 15.7 mL/dL (15.0-23.0); ABG OXYGEN SATURATION 95.5 % (95.0-98.0); ABG OXYHEMOGLOBIN 94.5 % (94.0-100.0); ABG PCO2 49 mmHg (35-45); ABG PH 7.336 (7.35-7.450); ABG TOTAL HEMOGLOBIN 11.8 G/dL (12.0-18.0); PO2, ARTERIAL BG 70.8 mmHg (84.0-92.0); SOURCE, BLOOD GAS ARTERIAL; TEMPERATURE, FAHRENHEIT, BG 97.6 FAHREN (96.0-98.6)
[2020-02-23 12:40] LABS: O2 DEVICE,BLOOD GAS VENTILATOR (ROOM AIR); PEEP,BG 12 cm H2O; SITE, BLOOD GAS ARTERIAL LINE; VENT MODE, BG PC (ROOM AIR)
[2020-02-23 12:47] LABS: GLUCOSE,POINT OF CARE 312 MG/DL (70-110)
[2020-02-23 16:00] VITALS: BP 132/63
[2020-02-23 20:00] VITALS: BP 115/61
[2020-02-23 20:50] LABS: GLUCOSE,POINT OF CARE 369 MG/DL (70-110)
[2020-02-24] VITALS: BP 121/62
[2020-02-24] MEDS: INSULIN LISPRO 100 UNITS/ML SQ PRN ×4 (01:48→18:08)
[2020-02-24] MEDS: FentaNYL CITRATE PF 500 MCG in DEXTROSE 5%-WATER 90 ML IV PRN ×4 (03:11→15:42)
[2020-02-24] MEDS: CISATRACURIUM BESYLATE 50 MG in DEXTROSE 5%-WATER 245 ML IV PRN ×5 (03:11→17:07)
[2020-02-24] MEDS: PROPOFOL 1000 MG/ISO-OSM 100 ML IV PRN ×9 (03:13→23:01)
[2020-02-24] MEDS: SODIUM CHLORIDE 0.9% 1,000 ML IV SCH ×2 (03:13→22:46)
[2020-02-24 04:00] VITALS: BP 129/64
[2020-02-24 05:08] LABS: GLUCOSE,POINT OF CARE 359 MG/DL (70-110)
[2020-02-24 06:08] LABS: ALBUMIN 1.7 g/dL (3.4-5.0); BILIRUBIN,TOTAL 1.6 mg/dL (0.1-1.0); C-REACTIVE PROTEIN QUANT 14.79 mg/dL (0.00-0.30); CALCIUM, TOTAL 7.9 mg/dL (8.8-10.5); CREATININE 1.43 mg/dL (0.60-1.30); POTASSIUM 5.5 mmol/L (3.5-5.1); TOTAL PROTEIN, SERUM 6.5 g/dL (6.4-8.2)
[2020-02-24 06:59] LABS: GLUCOSE,POINT OF CARE 372 MG/DL (70-110)
[2020-02-24 08:00] VITALS: BP 123/62
[2020-02-24] MEDS: INSULIN GLARGINE,HUM.REC.ANLOG 100 UNITS/ML SQ SCH ×2 (09:09→20:29)
[2020-02-24] MEDS: DEXAMETHASONE SOD PHOS 4 MG/ML VIAL IVP SCH (09:09)
[2020-02-24] MEDS: FAMOTIDINE 10 MG/ML 2 ML VIAL IVP SCH ×2 (09:10→20:27)
[2020-02-24] MEDS: ASCORBIC ACID 500 MG TABLET PO SCH ×2 (09:10→20:28)
[2020-02-24] MEDS: APIXABAN 5 MG TABLET PO SCH ×2 (09:10→20:27)
[2020-02-24] MEDS: CHOLECALCIFEROL (VIT D3) 1,000 UNITS [25 MCG] TABLET PO SCH (09:10)
[2020-02-24] MEDS: ZINC SULFATE 220 MG CAPSULE PO SCH ×2 (09:10→20:28)
[2020-02-24] MEDS: AMINO ACIDS/PROTEIN HYDROLYS 30 ML TUBE PO SCH (09:11)
[2020-02-24 10:53] LABS: ABG A-A DIFF O2 363.9 mmHg (10-20.0); ABG BASE EXCESS -1.6 mmol/L (-2.0-3.0); ABG CARBOXYHEMOGLOBIN 1.2 % (0.0-1.5); ABG HCO3 22.2 mmol/L (22.0-26.0); ABG METHEMOGLOBIN 0.3 % (0.0-1.5); ABG OXYGEN CONTENT 15.4 mL/dL (15.0-23.0); ABG OXYGEN SATURATION 92.6 % (95.0-98.0); ABG OXYHEMOGLOBIN 91.2 % (94.0-100.0); ABG PCO2 63 mmHg (35-45); ABG PH 7.231 (7.35-7.450); PO2, ARTERIAL BG 67.4 mmHg (84.0-92.0); SOURCE, BLOOD GAS ARTERIAL; TEMPERATURE, FAHRENHEIT, BG 98.6 FAHREN (96.0-98.6)
[2020-02-24 10:54] LABS: O2 DEVICE,BLOOD GAS VENTILATOR (ROOM AIR); PEEP,BG 10 cm H2O; SITE, BLOOD GAS ARTERIAL LINE; VENT MODE, BG Press. Control Vent (ROOM AIR)
[2020-02-24 10:55] LABS: SPONTANEOUS VT, BG 372 ml
[2020-02-24 12:00] VITALS: BP 138/67
[2020-02-24] MEDS ORDERED: SODIUM POLYSTYRENE SULFONATE 15 GM/60 ML SUSPENSION BOTTLE PO ONE (12:30)
[2020-02-24 16:00] VITALS: BP 124/63
[2020-02-24 18:09] LABS: GLUCOSE,POINT OF CARE 408 MG/DL (70-110)
[2020-02-24 18:36] LABS: GLUCOSE,POINT OF CARE 454 MG/DL (70-110)
[2020-02-24] MEDS: FentaNYL CITRATE PF 500 MCG in SODIUM CHLORIDE 0.9% 90 ML IV PRN ×2 (19:05→22:40)
[2020-02-24] MEDS: CISATRACURIUM BESYLATE 50 MG in SODIUM CHLORIDE 0.9% 245 ML IV PRN ×2 (19:06→22:41)
[2020-02-24 23:29] LABS: GLUCOSE,POINT OF CARE 470 MG/DL (70-110)
[2020-02-25] VITALS: BP 152/67
[2020-02-25] MEDS: INSULIN LISPRO 100 UNITS/ML SQ PRN ×4 (00:25→17:14)
[2020-02-25 01:57] LABS: GLUCOSE,POINT OF CARE 384 MG/DL (70-110)
[2020-02-25] MEDS: FentaNYL CITRATE PF 500 MCG in SODIUM CHLORIDE 0.9% 90 ML IV PRN ×4 (02:04→16:04)
[2020-02-25] MEDS: CISATRACURIUM BESYLATE 50 MG in SODIUM CHLORIDE 0.9% 245 ML IV PRN ×6 (02:04→22:37)
[2020-02-25] MEDS: PROPOFOL 1000 MG/ISO-OSM 100 ML IV PRN ×9 (02:05→22:43)
[2020-02-25 04:00] VITALS: BP 121/59
[2020-02-25 05:41] LABS: GLUCOSE,POINT OF CARE 332 MG/DL (70-110)
[2020-02-25 06:20] LABS: HEMOGLOBIN 10.6 g/dL (13.5-17.5); LYMPHOCYTES # (AUTO) 0.5 K/uL (1.0-4.8); NEUTROPHILS # (AUTO) 7.4 K/uL (1.8-7.7)
[2020-02-25 06:39] LABS: ALANINE AMINOTRANSFERASE 32 U/L (12-78); ALBUMIN 1.6 g/dL (3.4-5.0); ALKALINE PHOSPHATASE 161 U/L (46-116); ANION GAP 6 mmol/L (8-16); ASPARTATE AMINOTRANSFERASE 19 U/L (15-37); BILIRUBIN,TOTAL 1.6 mg/dL (0.1-1.0); CALCIUM, TOTAL 8.1 mg/dL (8.8-10.5); CARBON DIOXIDE 27 mmol/L (22-29); CHLORIDE 93 mmol/L (98-107); GLOMERULAR FILTR. RATE CALC > 60 mL/min (>60); GLUCOSE,RANDOM 356 mg/dL (70-110); POTASSIUM 4.8 mmol/L (3.5-5.1); SODIUM SERUM 126 mmol/L (136-145); TOTAL PROTEIN, SERUM 6.5 g/dL (6.4-8.2); UREA NITROGEN, BLOOD 43 mg/dL (7-18)
[2020-02-25] MEDS ORDERED: SODIUM CHLORIDE 0.9% 250 ML IV ONE ×2 (07:10→20:30)
[2020-02-25 07:14] LABS: BASOPHILS % (AUTO) 0.3 % (0.0-2.0); EOSINOPHILS % (AUTO) 1.4 % (1.0-6.0); HEMATOCRIT 32.1 % (41-53); LYMPHOCYTES % (AUTO) 5.4 % (22.0-44.0); MEAN CORPUSCULAR HEMOGLOBIN 28.7 pg (26.0-34.0); MEAN CORPUSCULAR HGB CONC 33.1 G/dL (31.0-37.0); MEAN CORPUSCULAR VOLUME 87 fL (80-100); MONOCYTES # (AUTO) 1.3 K/uL (0.1-1.0); MONOCYTES % (AUTO) 13.6 % (2.0-9.0); NEUTROPHILS % (AUTO) 79.3 % (40.0-70.0); PLATELET COUNT (AUTO) 151 K/uL (150-450); RED CELL DISTRIBUTION WIDTH 14.7 % (11.5-14.5)
[2020-02-25] MEDS: PIPERACILLIN/TAZO 3.375 GM/D5W 50 ML IV SCH ×3 (07:46→17:26)
[2020-02-25] MEDS: AMINO ACIDS/PROTEIN HYDROLYS 30 ML TUBE PO SCH (07:46)
[2020-02-25] MEDS: CHOLECALCIFEROL (VIT D3) 1,000 UNITS [25 MCG] TABLET PO SCH (07:47)
[2020-02-25] MEDS: FAMOTIDINE 10 MG/ML 2 ML VIAL IVP SCH ×2 (07:47→21:30)
[2020-02-25] MEDS: APIXABAN 5 MG TABLET PO SCH ×2 (07:47→21:30)
[2020-02-25] MEDS: ASCORBIC ACID 500 MG TABLET PO SCH ×2 (07:47→21:30)
[2020-02-25] MEDS: ZINC SULFATE 220 MG CAPSULE PO SCH ×2 (07:47→21:30)
[2020-02-25] MEDS: DEXAMETHASONE SOD PHOS 4 MG/ML VIAL IVP SCH (07:47)
[2020-02-25 08:00] VITALS: BP 135/61
[2020-02-25] MEDS: INSULIN GLARGINE,HUM.REC.ANLOG 100 UNITS/ML SQ SCH ×2 (09:13→21:31)
[2020-02-25] MEDS: FUROSEMIDE 20 MG/2 ML VIAL IVP SCH (11:45)
[2020-02-25 12:00] VITALS: BP 138/66
[2020-02-25 12:28] LABS: PHOSPHORUS 2.9 mg/dL (2.5-4.9)
[2020-02-25 14:33] LABS: GLUCOSE,POINT OF CARE 290 MG/DL (70-110)
[2020-02-25 16:00] VITALS: BP 120/51
[2020-02-25 18:01] LABS: ABG A-A DIFF O2 396.1 mmHg (10-20.0); ABG BASE EXCESS 0.4 mmol/L (-2.0-3.0); ABG CARBOXYHEMOGLOBIN 0.8 % (0.0-1.5); ABG HCO3 24.4 mmol/L (22.0-26.0); ABG METHEMOGLOBIN 0.3 % (0.0-1.5); ABG OXYGEN CONTENT 15.5 mL/dL (15.0-23.0); ABG OXYGEN SATURATION 93.7 % (95.0-98.0); ABG OXYHEMOGLOBIN 92.7 % (94.0-100.0); ABG PCO2 45 mmHg (35-45); ABG PH 7.373 (7.35-7.450); ABG TOTAL HEMOGLOBIN 11.9 G/dL (12.0-18.0); O2 DEVICE,BLOOD GAS VENTILATOR (ROOM AIR); PEEP,BG 10 cm H2O; PO2, ARTERIAL BG 58.2 mmHg (84.0-92.0); SITE, BLOOD GAS ARTERIAL LINE; SOURCE, BLOOD GAS ARTERIAL; VENT MODE, BG Press. Control Vent (ROOM AIR); VT, ABG 450 ml
[2020-02-25 18:02] LABS: INSPIRATORY TIME, BG 0.9 SEC
[2020-02-25 20:00] VITALS: BP 122/64
[2020-02-25 20:49] LABS: GLUCOSE,POINT OF CARE 240 MG/DL (70-110)
[2020-02-26] VITALS: BP 135/69
[2020-02-26] MEDS: FentaNYL CITRATE PF 500 MCG in SODIUM CHLORIDE 0.9% 90 ML IV PRN ×7 (00:19→21:06)
[2020-02-26] MEDS: INSULIN LISPRO 100 UNITS/ML SQ PRN ×4 (00:21→17:12)
[2020-02-26] MEDS ORDERED: SODIUM CHLORIDE 0.9% 250 ML IV ONE (00:26)
[2020-02-26] MEDS: PIPERACILLIN/TAZO 3.375 GM/D5W 50 ML IV SCH ×4 (00:28→17:05)
[2020-02-26 01:07] LABS: GLUCOSE,POINT OF CARE 267 MG/DL (70-110)
[2020-02-26 01:07] LABS: GLUCOSE,POINT OF CARE 216 MG/DL (70-110)
[2020-02-26] MEDS: PROPOFOL 1000 MG/ISO-OSM 100 ML IV PRN ×7 (01:08→20:43)
[2020-02-26] MEDS: CISATRACURIUM BESYLATE 50 MG in SODIUM CHLORIDE 0.9% 245 ML IV PRN ×6 (01:38→21:06)
[2020-02-26 04:00] VITALS: BP 144/80
[2020-02-26 06:10] LABS: HEMOGLOBIN 10.6 g/dL (13.5-17.5); MEAN CORPUSCULAR HEMOGLOBIN 28.2 pg (26.0-34.0); MEAN CORPUSCULAR VOLUME 86 fL (80-100); PLATELET COUNT (AUTO) 172 K/uL (150-450); RED BLOOD CELL COUNT(AUTO) 3.74 MIL/uL (4.50-5.90); RED CELL DISTRIBUTION WIDTH 15.2 % (11.5-14.5)
[2020-02-26 06:44] LABS: ALANINE AMINOTRANSFERASE 28 U/L (12-78); ALBUMIN 1.4 g/dL (3.4-5.0); ALKALINE PHOSPHATASE 161 U/L (46-116); ANION GAP 6 mmol/L (8-16); ASPARTATE AMINOTRANSFERASE 20 U/L (15-37); BILIRUBIN,TOTAL 1.8 mg/dL (0.1-1.0); C-REACTIVE PROTEIN QUANT 18.08 mg/dL (0.00-0.30); CALCIUM, TOTAL 8.1 mg/dL (8.8-10.5); CARBON DIOXIDE 26 mmol/L (22-29); CHLORIDE 98 mmol/L (98-107); CREATININE 1.05 mg/dL (0.60-1.30); GLOMERULAR FILTR. RATE CALC > 60 mL/min (>60); GLUCOSE,RANDOM 203 mg/dL (70-110); PHOSPHORUS 3.3 mg/dL (2.5-4.9); POTASSIUM 3.8 mmol/L (3.5-5.1); SODIUM SERUM 130 mmol/L (136-145); TOTAL PROTEIN, SERUM 6.4 g/dL (6.4-8.2); UREA NITROGEN, BLOOD 37 mg/dL (7-18)
[2020-02-26 08:00] VITALS: BP 135/72
[2020-02-26] MEDS: FUROSEMIDE 20 MG/2 ML VIAL IVP SCH (08:25)
[2020-02-26] MEDS: CHOLECALCIFEROL (VIT D3) 1,000 UNITS [25 MCG] TABLET PO SCH (08:25)
[2020-02-26] MEDS: FAMOTIDINE 10 MG/ML 2 ML VIAL IVP SCH ×2 (08:26→20:41)
[2020-02-26] MEDS: DEXAMETHASONE SOD PHOS 4 MG/ML VIAL IVP SCH (08:26)
[2020-02-26] MEDS: ZINC SULFATE 220 MG CAPSULE PO SCH ×2 (08:27→20:41)
[2020-02-26] MEDS: APIXABAN 5 MG TABLET PO SCH ×2 (08:27→20:41)
[2020-02-26] MEDS: ASCORBIC ACID 500 MG TABLET PO SCH ×2 (08:27→20:41)
[2020-02-26] MEDS: AMINO ACIDS/PROTEIN HYDROLYS 30 ML TUBE PO SCH (08:27)
[2020-02-26] MEDS: INSULIN GLARGINE,HUM.REC.ANLOG 100 UNITS/ML SQ SCH ×2 (08:36→21:05)
[2020-02-26 09:13] LABS: GLUCOSE,POINT OF CARE 182 MG/DL (70-110)
[2020-02-26 09:47] LABS: BAND NEUTROPHILS % (MANUAL) 18 % (0-5); EOSINOPHILS % (MANUAL) 2 % (1-6); LYMPHOCYTES % (MANUAL) 9 % (22-44); METAMYELOCYTES % 2 % (0-0); MONOCYTES % (MANUAL) 7 % (2-9); MYELOCYTES % 1 % (0-0); SEGMENTED NEUTROPHILS % 61 % (40-70)
[2020-02-26 12:00] VITALS: BP 130/63
[2020-02-26 12:17] LABS: ABG A-A DIFF O2 331.5 mmHg (10-20.0); ABG BASE EXCESS 2.6 mmol/L (-2.0-3.0); ABG CARBOXYHEMOGLOBIN 1.6 % (0.0-1.5); ABG HCO3 26.9 mmol/L (22.0-26.0); ABG METHEMOGLOBIN 0.3 % (0.0-1.5); ABG OXYGEN CONTENT 16.4 mL/dL (15.0-23.0); ABG OXYGEN SATURATION 94.5 % (95.0-98.0); ABG OXYHEMOGLOBIN 92.7 % (94.0-100.0); ABG PCO2 34 mmHg (35-45); ABG PH 7.503 (7.35-7.450); ABG TOTAL HEMOGLOBIN 12.6 G/dL (12.0-18.0); PO2, ARTERIAL BG 61.4 mmHg (84.0-92.0)
[2020-02-26 12:18] LABS: O2 DEVICE,BLOOD GAS VENTILATOR (ROOM AIR); SITE, BLOOD GAS ARTERIAL LINE; SOURCE, BLOOD GAS ARTERIAL; VENT MODE, BG Press. Control Vent (ROOM AIR); VT, ABG 530 ml
[2020-02-26 12:19] LABS: INSPIRATORY TIME, BG 0.9 SEC; PEEP,BG 10 cm H2O
[2020-02-26 12:22] LABS: GLUCOSE,POINT OF CARE 154 MG/DL (70-110)
[2020-02-26 16:00] VITALS: BP 129/60
[2020-02-26] MEDS ORDERED: GABAPENTIN 300 MG CAPSULE PO SCH (16:00)
[2020-02-26 16:32] LABS: APPEARANCE,URINE CLEAR (CLEAR); BILIRUBIN,URINE NEGATIVE (NEGATIVE); GLUCOSE, URINE (UA) NEGATIVE (NEGATIVE); KETONES,URINE NEGATIVE (NEGATIVE); LEUKOCYTE ESTERASE ,URINE NEGATIVE (NEGATIVE); NITRATE,URINE NEGATIVE (NEGATIVE); OCCULT BLOOD,URINE TRACE (NEGATIVE); PROTEIN,URINE NEGATIVE (NEGATIVE)
[2020-02-26 16:38] LABS: ABG A-A DIFF O2 327.1 mmHg (10-20.0); ABG BASE EXCESS 2.3 mmol/L (-2.0-3.0); ABG HCO3 26.2 mmol/L (22.0-26.0); ABG METHEMOGLOBIN 0.3 % (0.0-1.5); ABG OXYGEN CONTENT 16.2 mL/dL (15.0-23.0); ABG OXYGEN SATURATION 93.9 % (95.0-98.0); ABG OXYHEMOGLOBIN 92.7 % (94.0-100.0); ABG PCO2 39 mmHg (35-45); ABG PH 7.448 (7.35-7.450); ABG TOTAL HEMOGLOBIN 12.4 G/dL (12.0-18.0); INSPIRATORY TIME, BG 0.9 SEC; O2 DEVICE,BLOOD GAS VENTILATOR (ROOM AIR); PEEP,BG 10 cm H2O; PO2, ARTERIAL BG 60.1 mmHg (84.0-92.0); SOURCE, BLOOD GAS ARTERIAL; VENT MODE, BG Press. Control Vent (ROOM AIR); VT, ABG 460 ml
[2020-02-26 16:39] LABS: SITE, BLOOD GAS ARTERIAL LINE
[2020-02-26 16:45] LABS: BACTERIA,URINE None Seen /HPF (None Seen); SQUAMOUS EPITHELIAL CELL,UR Rare /LPF (None Seen); WBC,URINE 0-2 /HPF (0-5)
[2020-02-26 18:06] LABS: GLUCOSE,POINT OF CARE 243 MG/DL (70-110)
[2020-02-26 20:00] VITALS: BP 107/55
[2020-02-27] VITALS: BP 119/58
[2020-02-27] MEDS: PIPERACILLIN/TAZO 3.375 GM/D5W 50 ML IV SCH ×4 (01:13→18:53)
[2020-02-27] MEDS: INSULIN LISPRO 100 UNITS/ML SQ PRN ×4 (01:14→18:54)
[2020-02-27] MEDS: PROPOFOL 1000 MG/ISO-OSM 100 ML IV PRN ×5 (01:15→23:59)
[2020-02-27] MEDS: CISATRACURIUM BESYLATE 50 MG in SODIUM CHLORIDE 0.9% 245 ML IV PRN ×5 (01:16→21:05)
[2020-02-27] MEDS: FentaNYL CITRATE PF 500 MCG in SODIUM CHLORIDE 0.9% 90 ML IV PRN ×4 (03:59→21:05)
[2020-02-27 04:00] VITALS: BP 87/50
[2020-02-27] MEDS: FUROSEMIDE 20 MG/2 ML VIAL IVP SCH (06:22)
[2020-02-27 07:01] LABS: GLUCOSE,POINT OF CARE 198 MG/DL (70-110)
[2020-02-27 07:01] LABS: GLUCOSE,POINT OF CARE 206 MG/DL (70-110)
[2020-02-27 07:08] LABS: HEMATOCRIT 31.5 % (41-53); HEMOGLOBIN 10.4 g/dL (13.5-17.5); MEAN CORPUSCULAR HEMOGLOBIN 28.4 pg (26.0-34.0); MEAN CORPUSCULAR VOLUME 86 fL (80-100); PLATELET COUNT (AUTO) 193 K/uL (150-450); RED BLOOD CELL COUNT(AUTO) 3.67 MIL/uL (4.50-5.90); RED CELL DISTRIBUTION WIDTH 15.7 % (11.5-14.5)
[2020-02-27 07:26] LABS: ALBUMIN 1.4 g/dL (3.4-5.0); BILIRUBIN,TOTAL 1.3 mg/dL (0.1-1.0); C-REACTIVE PROTEIN QUANT 15.79 mg/dL (0.00-0.30); CALCIUM, TOTAL 8.2 mg/dL (8.8-10.5); CREATININE 1.36 mg/dL (0.60-1.30); POTASSIUM 3.7 mmol/L (3.5-5.1); TOTAL PROTEIN, SERUM 6.4 g/dL (6.4-8.2)
[2020-02-27 07:37] LABS: BAND NEUTROPHILS % (MANUAL) 16 % (0-5); EOSINOPHILS % (MANUAL) 1 % (1-6); LYMPHOCYTES % (MANUAL) 8 % (22-44); METAMYELOCYTES % 1 % (0-0); MONOCYTES % (MANUAL) 9 % (2-9); MYELOCYTES % 1 % (0-0); SEGMENTED NEUTROPHILS % 64 % (40-70)
[2020-02-27 08:00] VITALS: BP 115/54
[2020-02-27] MEDS: AMINO ACIDS/PROTEIN HYDROLYS 30 ML TUBE PO SCH (08:00)
[2020-02-27] MEDS ORDERED: DULoxetine HCL 30 MG CAPSULE PO SCH (09:00)
[2020-02-27] MEDS: ASCORBIC ACID 500 MG TABLET PO SCH ×2 (10:47→20:56)
[2020-02-27] MEDS: ZINC SULFATE 220 MG CAPSULE PO SCH ×2 (10:47→20:56)
[2020-02-27] MEDS: DEXAMETHASONE SOD PHOS 4 MG/ML VIAL IVP SCH (10:48)
[2020-02-27] MEDS: FAMOTIDINE 10 MG/ML 2 ML VIAL IVP SCH ×2 (10:48→20:56)
[2020-02-27] MEDS: APIXABAN 5 MG TABLET PO SCH ×2 (10:48→20:56)
[2020-02-27] MEDS: CHOLECALCIFEROL (VIT D3) 1,000 UNITS [25 MCG] TABLET PO SCH (10:48)
[2020-02-27] MEDS: INSULIN GLARGINE,HUM.REC.ANLOG 100 UNITS/ML SQ SCH ×2 (10:51→21:10)
[2020-02-27 12:00] VITALS: BP 105/50
[2020-02-27 16:00] VITALS: BP 142/63
[2020-02-27 16:44] LABS: GLUCOSE,POINT OF CARE 177 MG/DL (70-110)
[2020-02-27 16:45] LABS: GLUCOSE,POINT OF CARE 161 MG/DL (70-110)
[2020-02-27 20:00] VITALS: BP 142/65
[2020-02-27 21:14] LABS: GLUCOSE,POINT OF CARE 182 MG/DL (70-110)
[2020-02-27 23:41] LABS: GLUCOSE,POINT OF CARE 199 MG/DL (70-110)
[2020-02-28] VITALS: BP 109/54
[2020-02-28] MEDS: INSULIN LISPRO 100 UNITS/ML SQ PRN ×3 (00:03→14:35)
[2020-02-28] MEDS: PIPERACILLIN/TAZO 3.375 GM/D5W 50 ML IV SCH ×4 (00:04→18:37)
[2020-02-28] MEDS: CISATRACURIUM BESYLATE 50 MG in SODIUM CHLORIDE 0.9% 245 ML IV PRN ×5 (01:31→21:46)
[2020-02-28 02:34] LABS: GLUCOSE,POINT OF CARE 190 MG/DL (70-110)
[2020-02-28] MEDS: PROPOFOL 1000 MG/ISO-OSM 100 ML IV PRN ×4 (03:51→23:31)
[2020-02-28] MEDS: FentaNYL CITRATE PF 500 MCG in SODIUM CHLORIDE 0.9% 90 ML IV PRN ×3 (03:51→16:04)
[2020-02-28 04:00] VITALS: BP 140/65
[2020-02-28] MEDS: FUROSEMIDE 20 MG/2 ML VIAL IVP SCH (06:05)
[2020-02-28 06:07] LABS: ALANINE AMINOTRANSFERASE 21 U/L (12-78); ALBUMIN 1.4 g/dL (3.4-5.0); ALKALINE PHOSPHATASE 172 U/L (46-116); ANION GAP 5 mmol/L (8-16); ASPARTATE AMINOTRANSFERASE 19 U/L (15-37); BILIRUBIN,TOTAL 1.2 mg/dL (0.1-1.0); C-REACTIVE PROTEIN QUANT 12.39 mg/dL (0.00-0.30); CALCIUM, TOTAL 8.3 mg/dL (8.8-10.5); CARBON DIOXIDE 27 mmol/L (22-29); CHLORIDE 103 mmol/L (98-107); CREATININE 1.18 mg/dL (0.60-1.30); GLOMERULAR FILTR. RATE CALC > 60 mL/min (>60); GLUCOSE,RANDOM 167 mg/dL (70-110); POTASSIUM 3.4 mmol/L (3.5-5.1); SODIUM SERUM 135 mmol/L (136-145); TOTAL PROTEIN, SERUM 6.6 g/dL (6.4-8.2); UREA NITROGEN, BLOOD 38 mg/dL (7-18)
[2020-02-28 07:12] LABS: GLUCOSE,POINT OF CARE 148 MG/DL (70-110)
[2020-02-28 08:00] VITALS: BP 95/50
[2020-02-28 08:20] LABS: ABG A-A DIFF O2 307.8 mmHg (10-20.0); ABG BASE EXCESS 0.9 mmol/L (-2.0-3.0); ABG CARBOXYHEMOGLOBIN 0.8 % (0.0-1.5); ABG HCO3 25.1 mmol/L (22.0-26.0); ABG METHEMOGLOBIN 0.3 % (0.0-1.5); ABG OXYGEN CONTENT 15.3 mL/dL (15.0-23.0); ABG OXYGEN SATURATION 95.1 % (95.0-98.0); ABG OXYHEMOGLOBIN 94.1 % (94.0-100.0); ABG PCO2 42 mmHg (35-45); ABG PH 7.406 (7.35-7.450); ABG TOTAL HEMOGLOBIN 11.5 G/dL (12.0-18.0); INSPIRATORY TIME, BG 0.8 SEC; O2 DEVICE,BLOOD GAS VENTILATOR (ROOM AIR); PEEP,BG 10 cm H2O; PO2, ARTERIAL BG 74.7 mmHg (84.0-92.0); SITE, BLOOD GAS ARTERIAL LINE; SOURCE, BLOOD GAS ARTERIAL; TEMPERATURE, FAHRENHEIT, BG 98.1 FAHREN (96.0-98.6); VENT MODE, BG Press. Control Vent (ROOM AIR); VT, ABG 400 ml
[2020-02-28] MEDS: AMINO ACIDS/PROTEIN HYDROLYS 30 ML TUBE PO SCH (09:10)
[2020-02-28] MEDS: APIXABAN 5 MG TABLET PO SCH ×2 (09:12→20:06)
[2020-02-28] MEDS: ZINC SULFATE 220 MG CAPSULE PO SCH ×2 (09:12→20:06)
[2020-02-28] MEDS: CHOLECALCIFEROL (VIT D3) 1,000 UNITS [25 MCG] TABLET PO SCH (09:12)
[2020-02-28] MEDS: ASCORBIC ACID 500 MG TABLET PO SCH ×2 (09:12→20:06)
[2020-02-28] MEDS: DEXAMETHASONE SOD PHOS 4 MG/ML VIAL IVP SCH (09:13)
[2020-02-28] MEDS: METOCLOPRAMIDE HCL 5 MG/ML 2 ML VIAL IVP PRN (09:13)
[2020-02-28] MEDS: FAMOTIDINE 10 MG/ML 2 ML VIAL IVP SCH ×2 (09:14→20:07)
[2020-02-28] MEDS: INSULIN GLARGINE,HUM.REC.ANLOG 100 UNITS/ML SQ SCH ×2 (09:16→20:08)
[2020-02-28 12:00] VITALS: BP 137/62
[2020-02-28] MEDS: POTASSIUM CHL 10 MEQ/WATER 50 ML IV SCH ×3 (13:14→13:17)
[2020-02-28 16:00] VITALS: BP 128/60
[2020-02-28 17:45] LABS: GLUCOSE,POINT OF CARE 128 MG/DL (70-110)
[2020-02-28 20:00] VITALS: BP 128/60
[2020-02-28 21:36] LABS: GLUCOSE,POINT OF CARE 151 MG/DL (70-110)
[2020-02-28 21:36] LABS: GLUCOSE,POINT OF CARE 162 MG/DL (70-110)
[2020-02-29] VITALS: BP 118/57
[2020-02-29] MEDS: FentaNYL CITRATE PF 500 MCG in SODIUM CHLORIDE 0.9% 90 ML IV PRN ×4 (00:18→18:36)
[2020-02-29] MEDS: INSULIN LISPRO 100 UNITS/ML SQ PRN ×2 (00:58→18:44)
[2020-02-29] MEDS: PIPERACILLIN/TAZO 3.375 GM/D5W 50 ML IV SCH ×4 (01:29→18:34)
[2020-02-29] MEDS: CISATRACURIUM BESYLATE 50 MG in SODIUM CHLORIDE 0.9% 245 ML IV PRN ×4 (02:30→18:38)
[2020-02-29 03:17] LABS: GLUCOSE,POINT OF CARE 127 MG/DL (70-110)
[2020-02-29 04:00] VITALS: BP 157/69
[2020-02-29] MEDS: PROPOFOL 1000 MG/ISO-OSM 100 ML IV PRN ×4 (04:07→19:58)
[2020-02-29 06:21] LABS: HEMATOCRIT 29.9 % (41-53); HEMOGLOBIN 9.8 g/dL (13.5-17.5); MEAN CORPUSCULAR HEMOGLOBIN 28.4 pg (26.0-34.0); MEAN CORPUSCULAR HGB CONC 32.9 G/dL (31.0-37.0); MEAN CORPUSCULAR VOLUME 86 fL (80-100); PLATELET COUNT (AUTO) 197 K/uL (150-450); RED BLOOD CELL COUNT(AUTO) 3.47 MIL/uL (4.50-5.90); RED CELL DISTRIBUTION WIDTH 16.2 % (11.5-14.5)
[2020-02-29 06:42] LABS: ALANINE AMINOTRANSFERASE 21 U/L (12-78); ALBUMIN 1.3 g/dL (3.4-5.0); ALKALINE PHOSPHATASE 167 U/L (46-116); ANION GAP -3 mmol/L (8-16); ASPARTATE AMINOTRANSFERASE 22 U/L (15-37); BILIRUBIN,TOTAL 1.2 mg/dL (0.1-1.0); C-REACTIVE PROTEIN QUANT 9.45 mg/dL (0.00-0.30); CALCIUM, TOTAL 8.3 mg/dL (8.8-10.5); CARBON DIOXIDE 27 mmol/L (22-29); CHLORIDE 104 mmol/L (98-107); CREATININE 1.07 mg/dL (0.60-1.30); GLOMERULAR FILTR. RATE CALC > 60 mL/min (>60); GLUCOSE,RANDOM 115 mg/dL (70-110); POTASSIUM 3.5 mmol/L (3.5-5.1); SODIUM SERUM 128 mmol/L (136-145); TOTAL PROTEIN, SERUM 6.3 g/dL (6.4-8.2); UREA NITROGEN, BLOOD 29 mg/dL (7-18)
[2020-02-29 07:22] LABS: BAND NEUTROPHILS % (MANUAL) 15 % (0-5); EOSINOPHILS % (MANUAL) 1 % (1-6); LYMPHOCYTES % (MANUAL) 9 % (22-44); METAMYELOCYTES % 1 % (0-0); MONOCYTES % (MANUAL) 11 % (2-9); MYELOCYTES % 1 % (0-0); SEGMENTED NEUTROPHILS % 62 % (40-70)
[2020-02-29 08:00] VITALS: BP 132/59
[2020-02-29] MEDS: AMINO ACIDS/PROTEIN HYDROLYS 30 ML TUBE PO SCH (08:04)
[2020-02-29] MEDS: INSULIN GLARGINE,HUM.REC.ANLOG 100 UNITS/ML SQ SCH ×2 (09:00→22:22)
[2020-02-29] MEDS ORDERED: SODIUM CHLORIDE 0.9% 250 ML IV ONE (09:43)
[2020-02-29] MEDS: APIXABAN 5 MG TABLET PO SCH ×2 (10:09→20:46)
[2020-02-29] MEDS: ZINC SULFATE 220 MG CAPSULE PO SCH ×2 (10:09→20:46)
[2020-02-29] MEDS: CHOLECALCIFEROL (VIT D3) 1,000 UNITS [25 MCG] TABLET PO SCH (10:09)
[2020-02-29] MEDS: DEXAMETHASONE SOD PHOS 4 MG/ML VIAL IVP SCH (10:18)
[2020-02-29] MEDS: ASCORBIC ACID 500 MG TABLET PO SCH ×2 (10:19→20:46)
[2020-02-29] MEDS: FAMOTIDINE 10 MG/ML 2 ML VIAL IVP SCH ×2 (10:19→20:46)
[2020-02-29] MEDS: FUROSEMIDE 20 MG/2 ML VIAL IVP SCH (10:20)
[2020-02-29 12:00] VITALS: BP 135/64
[2020-02-29] MEDS ORDERED: TOLVAPTAN 15 MG TABLET NG ONE (12:30)
[2020-02-29 16:00] VITALS: BP 138/78
[2020-02-29 17:35] LABS: GLUCOSE,POINT OF CARE 106 MG/DL (70-110)
[2020-02-29 17:35] LABS: GLUCOSE,POINT OF CARE 97 MG/DL (70-110)
[2020-02-29 20:00] VITALS: BP 106/61
[2020-03-01] VITALS: BP 134/82
[2020-03-01] MEDS: CISATRACURIUM BESYLATE 50 MG in SODIUM CHLORIDE 0.9% 245 ML IV PRN (00:29)
[2020-03-01] MEDS: PIPERACILLIN/TAZO 3.375 GM/D5W 50 ML IV SCH ×4 (00:29→17:58)
[2020-03-01] MEDS: FentaNYL CITRATE PF 500 MCG in SODIUM CHLORIDE 0.9% 90 ML IV PRN ×2 (01:22→05:50)
[2020-03-01] MEDS: PROPOFOL 1000 MG/ISO-OSM 100 ML IV PRN ×3 (01:22→12:01)
[2020-03-01 04:00] VITALS: BP 114/68
[2020-03-01 06:01] LABS: GLUCOSE,POINT OF CARE 131 MG/DL (70-110)
[2020-03-01 06:01] LABS: GLUCOSE,POINT OF CARE 108 MG/DL (70-110)
[2020-03-01 06:01] LABS: GLUCOSE,POINT OF CARE 125 MG/DL (70-110)
[2020-03-01 06:01] LABS: GLUCOSE,POINT OF CARE 133 MG/DL (70-110)
[2020-03-01 06:39] LABS: GLUCOSE,POINT OF CARE 123 MG/DL (70-110)
[2020-03-01 08:00] VITALS: BP 110/72
[2020-03-01] MEDS: INSULIN GLARGINE,HUM.REC.ANLOG 100 UNITS/ML SQ SCH ×3 (09:00→20:21)
[2020-03-01] MEDS: FAMOTIDINE 10 MG/ML 2 ML VIAL IVP SCH ×2 (09:43→19:51)
[2020-03-01] MEDS: CHOLECALCIFEROL (VIT D3) 1,000 UNITS [25 MCG] TABLET PO SCH (09:43)
[2020-03-01] MEDS: ZINC SULFATE 220 MG CAPSULE PO SCH ×2 (09:43→19:48)
[2020-03-01] MEDS: DEXAMETHASONE SOD PHOS 4 MG/ML VIAL IVP SCH (09:43)
[2020-03-01] MEDS: APIXABAN 5 MG TABLET PO SCH ×2 (09:44→19:48)
[2020-03-01] MEDS: ASCORBIC ACID 500 MG TABLET PO SCH ×2 (09:44→19:49)
[2020-03-01] MEDS: FUROSEMIDE 20 MG/2 ML VIAL IVP SCH (10:00)
[2020-03-01 12:00] VITALS: BP 125/73
[2020-03-01 15:09] LABS: HEMATOCRIT 30.7 % (41-53); HEMOGLOBIN 10.3 g/dL (13.5-17.5); MEAN CORPUSCULAR HEMOGLOBIN 28.6 pg (26.0-34.0); MEAN CORPUSCULAR HGB CONC 33.4 G/dL (31.0-37.0); MEAN CORPUSCULAR VOLUME 86 fL (80-100); PLATELET COUNT (AUTO) 183 K/uL (150-450); RED BLOOD CELL COUNT(AUTO) 3.59 MIL/uL (4.50-5.90)
[2020-03-01 15:30] LABS: ANION GAP 7 mmol/L (8-16); CALCIUM, TOTAL 8.4 mg/dL (8.8-10.5); CARBON DIOXIDE 27 mmol/L (22-29); CHLORIDE 102 mmol/L (98-107); CREATININE 1.12 mg/dL (0.60-1.30); GLOMERULAR FILTR. RATE CALC > 60 mL/min (>60); GLUCOSE,RANDOM 147 mg/dL (70-110); POTASSIUM 3.8 mmol/L (3.5-5.1); SODIUM SERUM 136 mmol/L (136-145); UREA NITROGEN, BLOOD 25 mg/dL (7-18)
[2020-03-01 15:36] LABS: ALANINE AMINOTRANSFERASE 24 U/L (12-78); ALBUMIN 1.5 g/dL (3.4-5.0); ALKALINE PHOSPHATASE 188 U/L (46-116); ASPARTATE AMINOTRANSFERASE 26 U/L (15-37); TOTAL PROTEIN, SERUM 6.7 g/dL (6.4-8.2)
[2020-03-01 16:00] VITALS: BP 102/63
[2020-03-01 16:32] LABS: BAND NEUTROPHILS % (MANUAL) 2 % (0-5); LYMPHOCYTES % (MANUAL) 7 % (22-44); METAMYELOCYTES % 1 % (0-0); MONOCYTES % (MANUAL) 10 % (2-9); MYELOCYTES % 2 % (0-0); SEGMENTED NEUTROPHILS % 78 % (40-70)
[2020-03-01] MEDS: ACETAMINOPHEN 325 MG TABLET PO PRN ×2 (16:38→21:37)
[2020-03-01] MEDS ORDERED: SODIUM CHLORIDE 0.9% 250 ML IV ONE (17:53)
[2020-03-01] MEDS: INSULIN LISPRO 100 UNITS/ML SQ PRN (18:07)
[2020-03-01 18:46] LABS: GLUCOSE,POINT OF CARE 151 MG/DL (70-110)
[2020-03-01 20:00] VITALS: BP 104/67
[2020-03-01 23:08] LABS: GLUCOSE,POINT OF CARE 141 MG/DL (70-110)
[2020-03-02] VITALS: BP 111/68
[2020-03-02] MEDS: INSULIN LISPRO 100 UNITS/ML SQ PRN ×4 (01:27→17:45)
[2020-03-02] MEDS: PIPERACILLIN/TAZO 3.375 GM/D5W 50 ML IV SCH ×4 (01:28→17:55)
[2020-03-02 02:12] LABS: GLUCOSE,POINT OF CARE 141 MG/DL (70-110)
[2020-03-02 04:00] VITALS: BP 127/70
[2020-03-02 05:31] LABS: HEMATOCRIT 31.1 % (41-53); HEMOGLOBIN 10.2 g/dL (13.5-17.5); MEAN CORPUSCULAR HEMOGLOBIN 28.5 pg (26.0-34.0); MEAN CORPUSCULAR HGB CONC 32.8 G/dL (31.0-37.0); MEAN CORPUSCULAR VOLUME 87 fL (80-100); PLATELET COUNT (AUTO) 188 K/uL (150-450); RED BLOOD CELL COUNT(AUTO) 3.58 MIL/uL (4.50-5.90); RED CELL DISTRIBUTION WIDTH 16.1 % (11.5-14.5)
[2020-03-02 05:59] LABS: ALANINE AMINOTRANSFERASE 24 U/L (12-78); ALBUMIN 1.4 g/dL (3.4-5.0); ALKALINE PHOSPHATASE 180 U/L (46-116); ANION GAP 6 mmol/L (8-16); ASPARTATE AMINOTRANSFERASE 46 U/L (15-37); BILIRUBIN,TOTAL 1.9 mg/dL (0.1-1.0); C-REACTIVE PROTEIN QUANT 10.99 mg/dL (0.00-0.30); CALCIUM, TOTAL 8.4 mg/dL (8.8-10.5); CARBON DIOXIDE 28 mmol/L (22-29); CHLORIDE 104 mmol/L (98-107); CREATININE 1.16 mg/dL (0.60-1.30); GLOMERULAR FILTR. RATE CALC > 60 mL/min (>60); GLUCOSE,RANDOM 153 mg/dL (70-110); POTASSIUM 3.4 mmol/L (3.5-5.1); SODIUM SERUM 138 mmol/L (136-145); TOTAL PROTEIN, SERUM 6.6 g/dL (6.4-8.2); UREA NITROGEN, BLOOD 27 mg/dL (7-18)
[2020-03-02 06:38] LABS: GLUCOSE,POINT OF CARE 131 MG/DL (70-110)
[2020-03-02 06:44] LABS: BAND NEUTROPHILS % (MANUAL) 2 % (0-5); LYMPHOCYTES % (MANUAL) 9 % (22-44); METAMYELOCYTES % 1 % (0-0); MONOCYTES % (MANUAL) 11 % (2-9); MYELOCYTES % 1 % (0-0); SEGMENTED NEUTROPHILS % 76 % (40-70)
[2020-03-02 08:00] VITALS: BP 130/78
[2020-03-02] MEDS: INSULIN GLARGINE,HUM.REC.ANLOG 100 UNITS/ML SQ SCH ×2 (09:00→22:20)
[2020-03-02] MEDS: FAMOTIDINE 10 MG/ML 2 ML VIAL IVP SCH ×2 (09:36→22:14)
[2020-03-02] MEDS: ZINC SULFATE 220 MG CAPSULE PO SCH ×2 (09:36→22:14)
[2020-03-02] MEDS: CHOLECALCIFEROL (VIT D3) 1,000 UNITS [25 MCG] TABLET PO SCH (09:36)
[2020-03-02] MEDS: APIXABAN 5 MG TABLET PO SCH ×2 (09:36→22:14)
[2020-03-02] MEDS: DEXAMETHASONE SOD PHOS 4 MG/ML VIAL IVP SCH (09:36)
[2020-03-02] MEDS: ASCORBIC ACID 500 MG TABLET PO SCH ×2 (09:37→22:14)
[2020-03-02] MEDS: POTASSIUM CHL 10 MEQ/WATER 50 ML IV PRN ×4 (09:37→12:12)
[2020-03-02 12:00] VITALS: BP 152/87
[2020-03-02] MEDS ORDERED: BISACODYL 10 MG RECTAL RECTAL SUPPOSITORY PR ONE (12:00)
[2020-03-02] MEDS ORDERED: MAGNESIUM HYDROXIDE SUSPENSION 30 ML UDCUP PO PRN (12:00)
[2020-03-02] MEDS ORDERED: SODIUM CHLORIDE 0.9% 2,000 ML ONE (12:10)
[2020-03-02] MEDS ORDERED: BISACODYL 10 MG RECTAL RECTAL SUPPOSITORY PR PRN (12:15)
[2020-03-02] MEDS: POTASSIUM CHL 10 MEQ/WATER 50 ML IV SCH ×4 (12:15→14:21)
[2020-03-02 12:50] LABS: PHOSPHORUS 3.1 mg/dL (2.5-4.9)
[2020-03-02 12:51] LABS: GLUCOSE,POINT OF CARE 209 MG/DL (70-110)
[2020-03-02 16:00] VITALS: BP_SYST 132; BP_SYST 98; BP_DIAS 53; BP_DIAS 57
[2020-03-02 16:32] LABS: APPEARANCE,URINE CLOUDY (CLEAR); GLUCOSE, URINE (UA) 250 mg/dL (NEGATIVE); KETONES,URINE 40 mg/dL (NEGATIVE); LEUKOCYTE ESTERASE ,URINE NEGATIVE (NEGATIVE); NITRATE,URINE NEGATIVE (NEGATIVE); OCCULT BLOOD,URINE SMALL (NEGATIVE); PH,URINE 5.5 (5.0-8.0); PROTEIN,URINE SEE CONFIRM (NEGATIVE)
[2020-03-02 16:37] LABS: BILIRUBIN,URINE PRELIM. POSITIVE (NEGATIVE)
[2020-03-02 16:49] LABS: SULFOSALICYLIC ACID,URINE 3+ (Negative)
[2020-03-02 16:51] LABS: RBC,URINE 0-2 /HPF (0-2); WBC,URINE 0-2 /HPF (0-5)
[2020-03-02 16:52] LABS: BACTERIA,URINE None Seen /HPF (None Seen); SQUAMOUS EPITHELIAL CELL,UR None Seen /LPF (None Seen); URIC ACID CRYSTALS,URINE Many /LPF (None Seen)
[2020-03-02] MEDS ORDERED: SODIUM CHLORIDE 0.9% 250 ML IV ONE (17:11)
[2020-03-02 18:57] LABS: GLUCOSE,POINT OF CARE 185 MG/DL (70-110)
[2020-03-02 20:00] VITALS: BP 131/76
[2020-03-02 23:40] LABS: GLUCOSE,POINT OF CARE 195 MG/DL (70-110)
[2020-03-03] VITALS: BP 126/76
[2020-03-03] MEDS: PIPERACILLIN/TAZO 3.375 GM/D5W 50 ML IV SCH ×4 (00:29→18:49)
[2020-03-03] MEDS: INSULIN LISPRO 100 UNITS/ML SQ PRN ×4 (00:33→17:04)
[2020-03-03 01:33] LABS: GLUCOSE,POINT OF CARE 189 MG/DL (70-110)
[2020-03-03 04:00] VITALS: BP 115/71
[2020-03-03 05:32] LABS: BASOPHILS % (AUTO) 0.5 % (0.0-2.0); EOSINOPHILS % (AUTO) 2.1 % (1.0-6.0); HEMATOCRIT 30.3 % (41-53); LYMPHOCYTES # (AUTO) 0.9 K/uL (1.0-4.8); MEAN CORPUSCULAR HEMOGLOBIN 28.7 pg (26.0-34.0); MEAN CORPUSCULAR HGB CONC 33.1 G/dL (31.0-37.0); MEAN CORPUSCULAR VOLUME 87 fL (80-100); MONOCYTES # (AUTO) 0.8 K/uL (0.1-1.0); MONOCYTES % (AUTO) 7.9 % (2.0-9.0); NEUTROPHILS # (AUTO) 7.6 K/uL (1.8-7.7); NEUTROPHILS % (AUTO) 80.5 % (40.0-70.0); PLATELET COUNT (AUTO) 180 K/uL (150-450); RED BLOOD CELL COUNT(AUTO) 3.49 MIL/uL (4.50-5.90); RED CELL DISTRIBUTION WIDTH 15.8 % (11.5-14.5)
[2020-03-03 06:16] LABS: ALANINE AMINOTRANSFERASE 30 U/L (12-78); ALBUMIN 1.5 g/dL (3.4-5.0); ALKALINE PHOSPHATASE 165 U/L (46-116); ANION GAP 1 mmol/L (8-16); ASPARTATE AMINOTRANSFERASE 69 U/L (15-37); BILIRUBIN,TOTAL 1.9 mg/dL (0.1-1.0); CALCIUM, TOTAL 8.6 mg/dL (8.8-10.5); CARBON DIOXIDE 29 mmol/L (22-29); CHLORIDE 106 mmol/L (98-107); CREATININE 0.99 mg/dL (0.60-1.30); GLOMERULAR FILTR. RATE CALC > 60 mL/min (>60); GLUCOSE,RANDOM 177 mg/dL (70-110); POTASSIUM 3.6 mmol/L (3.5-5.1); SODIUM SERUM 136 mmol/L (136-145); TOTAL PROTEIN, SERUM 6.8 g/dL (6.4-8.2); UREA NITROGEN, BLOOD 24 mg/dL (7-18)
[2020-03-03 08:00] VITALS: BP 108/61
[2020-03-03] MEDS ORDERED: SODIUM CHLORIDE 0.9% 250 ML IV ONE (10:07)
[2020-03-03] MEDS: APIXABAN 5 MG TABLET PO SCH ×2 (10:08→21:26)
[2020-03-03] MEDS: ASCORBIC ACID 500 MG TABLET PO SCH ×2 (10:09→21:27)
[2020-03-03] MEDS: DEXAMETHASONE SOD PHOS 4 MG/ML VIAL IVP SCH (10:09)
[2020-03-03] MEDS: CHOLECALCIFEROL (VIT D3) 1,000 UNITS [25 MCG] TABLET PO SCH (10:09)
[2020-03-03] MEDS: ZINC SULFATE 220 MG CAPSULE PO SCH ×2 (10:09→21:26)
[2020-03-03] MEDS: ACETAMINOPHEN 325 MG TABLET PO PRN (10:10)
[2020-03-03] MEDS: FAMOTIDINE 10 MG/ML 2 ML VIAL IVP SCH ×2 (10:10→21:26)
[2020-03-03] MEDS: INSULIN GLARGINE,HUM.REC.ANLOG 100 UNITS/ML SQ SCH ×2 (10:13→21:00)
[2020-03-03 11:36] LABS: ABG A-A DIFF O2 180.3 mmHg (10-20.0); ABG BASE EXCESS 6.2 mmol/L (-2.0-3.0); ABG CARBOXYHEMOGLOBIN 0.9 % (0.0-1.5); ABG METHEMOGLOBIN 0.3 % (0.0-1.5); ABG OXYGEN CONTENT 13.8 mL/dL (15.0-23.0); ABG OXYGEN SATURATION 93.7 % (95.0-98.0); ABG OXYHEMOGLOBIN 92.6 % (94.0-100.0); ABG PCO2 34 mmHg (35-45); ABG PH 7.544 (7.35-7.450); ABG TOTAL HEMOGLOBIN 10.6 G/dL (12.0-18.0); PO2, ARTERIAL BG 65.1 mmHg (84.0-92.0); SOURCE, BLOOD GAS ARTERIAL; TEMPERATURE, FAHRENHEIT, BG 99.7 FAHREN (96.0-98.6)
[2020-03-03 11:37] LABS: SITE, BLOOD GAS RT RADIAL
[2020-03-03 11:38] LABS: O2 DEVICE,BLOOD GAS VENTILATOR (ROOM AIR); PEEP,BG 7 cm H2O; VT, ABG 600 ml
[2020-03-03 12:00] VITALS: BP 124/68
[2020-03-03 16:00] VITALS: BP 131/75
[2020-03-03] MEDS: POTASSIUM CHL 10 MEQ/WATER 50 ML IV PRN ×3 (16:53→22:34)
[2020-03-03 18:28] LABS: GLUCOSE,POINT OF CARE 213 MG/DL (70-110)
[2020-03-03 18:28] LABS: GLUCOSE,POINT OF CARE 172 MG/DL (70-110)
[2020-03-03 18:28] LABS: GLUCOSE,POINT OF CARE 216 MG/DL (70-110)
[2020-03-03 20:00] VITALS: BP 118/69
[2020-03-04] VITALS: BP 137/75
[2020-03-04] MEDS ORDERED: SODIUM CHLORIDE 0.9% 500 ML IV ONE (00:23)
[2020-03-04] MEDS ORDERED: SODIUM CHLORIDE 0.9% 250 ML IV ONE (00:23)
[2020-03-04] MEDS: PIPERACILLIN/TAZO 3.375 GM/D5W 50 ML IV SCH ×4 (00:27→17:24)
[2020-03-04] MEDS: INSULIN LISPRO 100 UNITS/ML SQ PRN ×5 (00:37→23:38)
[2020-03-04 02:41] LABS: GLUCOSE,POINT OF CARE 197 MG/DL (70-110)
[2020-03-04 02:41] LABS: GLUCOSE,POINT OF CARE 211 MG/DL (70-110)
[2020-03-04 04:00] VITALS: BP 127/76
[2020-03-04 05:13] LABS: BASOPHILS % (AUTO) 0.9 % (0.0-2.0); EOSINOPHILS % (AUTO) 3.5 % (1.0-6.0); HEMATOCRIT 29.9 % (41-53); HEMOGLOBIN 9.7 g/dL (13.5-17.5); LYMPHOCYTES % (AUTO) 12.8 % (22.0-44.0); MEAN CORPUSCULAR HEMOGLOBIN 28.5 pg (26.0-34.0); MEAN CORPUSCULAR HGB CONC 32.6 G/dL (31.0-37.0); MEAN CORPUSCULAR VOLUME 88 fL (80-100); MONOCYTES # (AUTO) 0.5 K/uL (0.1-1.0); MONOCYTES % (AUTO) 6.5 % (2.0-9.0); NEUTROPHILS # (AUTO) 6.1 K/uL (1.8-7.7); NEUTROPHILS % (AUTO) 76.3 % (40.0-70.0); PLATELET COUNT (AUTO) 166 K/uL (150-450); RED BLOOD CELL COUNT(AUTO) 3.41 MIL/uL (4.50-5.90); RED CELL DISTRIBUTION WIDTH 16.1 % (11.5-14.5)
[2020-03-04 05:39] LABS: ALANINE AMINOTRANSFERASE 32 U/L (12-78); ALBUMIN 1.5 g/dL (3.4-5.0); ALKALINE PHOSPHATASE 185 U/L (46-116); ANION GAP 2 mmol/L (8-16); ASPARTATE AMINOTRANSFERASE 58 U/L (15-37); BILIRUBIN,TOTAL 1.6 mg/dL (0.1-1.0); CALCIUM, TOTAL 8.5 mg/dL (8.8-10.5); CARBON DIOXIDE 29 mmol/L (22-29); CHLORIDE 105 mmol/L (98-107); CREATININE 1.07 mg/dL (0.60-1.30); GLOMERULAR FILTR. RATE CALC > 60 mL/min (>60); GLUCOSE,RANDOM 213 mg/dL (70-110); POTASSIUM 3.7 mmol/L (3.5-5.1); SODIUM SERUM 136 mmol/L (136-145); TOTAL PROTEIN, SERUM 6.8 g/dL (6.4-8.2); UREA NITROGEN, BLOOD 26 mg/dL (7-18)
[2020-03-04 07:38] LABS: GLUCOSE,POINT OF CARE 203 MG/DL (70-110)
[2020-03-04 08:00] VITALS: BP 115/70
[2020-03-04] MEDS: DEXAMETHASONE SOD PHOS 4 MG/ML VIAL IVP SCH (09:07)
[2020-03-04] MEDS: CHOLECALCIFEROL (VIT D3) 1,000 UNITS [25 MCG] TABLET PO SCH (09:08)
[2020-03-04] MEDS: FUROSEMIDE 20 MG/2 ML VIAL IVP SCH (09:08)
[2020-03-04] MEDS: ASCORBIC ACID 500 MG TABLET PO SCH ×2 (09:08→21:00)
[2020-03-04] MEDS: APIXABAN 5 MG TABLET PO SCH ×2 (09:08→21:00)
[2020-03-04] MEDS: FAMOTIDINE 10 MG/ML 2 ML VIAL IVP SCH ×2 (09:08→22:43)
[2020-03-04] MEDS: INSULIN GLARGINE,HUM.REC.ANLOG 100 UNITS/ML SQ SCH ×2 (09:09→20:50)
[2020-03-04] MEDS: ZINC SULFATE 220 MG CAPSULE PO SCH ×2 (09:09→21:00)
[2020-03-04 12:00] VITALS: BP 122/81
[2020-03-04 12:36] LABS: C-REACTIVE PROTEIN QUANT 13.42 mg/dL (0.00-0.30)
[2020-03-04 15:35] LABS: ABG A-A DIFF O2 160.9 mmHg (10-20.0); ABG CARBOXYHEMOGLOBIN 0.9 % (0.0-1.5); ABG HCO3 28.7 mmol/L (22.0-26.0); ABG METHEMOGLOBIN 0.3 % (0.0-1.5); ABG OXYGEN CONTENT 14.3 mL/dL (15.0-23.0); ABG OXYGEN SATURATION 94.9 % (95.0-98.0); ABG OXYHEMOGLOBIN 93.8 % (94.0-100.0); ABG PCO2 40 mmHg (35-45); ABG TOTAL HEMOGLOBIN 10.8 G/dL (12.0-18.0); PO2, ARTERIAL BG 77.2 mmHg (84.0-92.0); SOURCE, BLOOD GAS ARTERIAL; TEMPERATURE, FAHRENHEIT, BG 99.6 FAHREN (96.0-98.6)
[2020-03-04 15:36] LABS: O2 DEVICE,BLOOD GAS VENTILATOR (ROOM AIR); SITE, BLOOD GAS LFT BRACHIAL; VENT MODE, BG Press. Support Vent. (ROOM AIR)
[2020-03-04 15:37] LABS: PEEP,BG 5 cm H2O; PRESSURE SUPPORT, BG 5 cm H2O; SPONTANEOUS VT, BG 517 ml
[2020-03-04 16:00] VITALS: BP 127/80
[2020-03-04] MEDS ORDERED: DEXMEDETOMIDINE HCL 200 MCG in SODIUM CHLORIDE 0.9% 48 ML IV PRN (18:30)
[2020-03-04 20:00] VITALS: BP 124/73
[2020-03-04 20:50] LABS: GLUCOSE,POINT OF CARE 206 MG/DL (70-110)
[2020-03-04 20:50] LABS: GLUCOSE,POINT OF CARE 205 MG/DL (70-110)
[2020-03-05] VITALS: BP 126/79
[2020-03-05 00:09] LABS: GLUCOSE,POINT OF CARE 210 MG/DL (70-110)
[2020-03-05] MEDS: PIPERACILLIN/TAZO 3.375 GM/D5W 50 ML IV SCH ×3 (00:48→11:59)
[2020-03-05 03:19] LABS: GLUCOSE,POINT OF CARE 205 MG/DL (70-110)
[2020-03-05 04:00] VITALS: BP 117/68
[2020-03-05 05:53] LABS: BASOPHILS % (AUTO) 1.1 % (0.0-2.0); EOSINOPHILS % (AUTO) 4.5 % (1.0-6.0); HEMATOCRIT 29.4 % (41-53); HEMOGLOBIN 9.7 g/dL (13.5-17.5); LYMPHOCYTES # (AUTO) 1.2 K/uL (1.0-4.8); LYMPHOCYTES % (AUTO) 15.2 % (22.0-44.0); MEAN CORPUSCULAR VOLUME 88 fL (80-100); MONOCYTES # (AUTO) 0.4 K/uL (0.1-1.0); MONOCYTES % (AUTO) 4.9 % (2.0-9.0); NEUTROPHILS # (AUTO) 6.1 K/uL (1.8-7.7); NEUTROPHILS % (AUTO) 74.3 % (40.0-70.0); PLATELET COUNT (AUTO) 158 K/uL (150-450); RED BLOOD CELL COUNT(AUTO) 3.35 MIL/uL (4.50-5.90); RED CELL DISTRIBUTION WIDTH 16.3 % (11.5-14.5)
[2020-03-05] MEDS: INSULIN LISPRO 100 UNITS/ML SQ PRN ×3 (06:21→16:49)
[2020-03-05] MEDS ORDERED: SODIUM CHLORIDE 0.9% 250 ML IV ONE (06:24)
[2020-03-05 06:44] LABS: ALANINE AMINOTRANSFERASE 44 U/L (12-78); ALBUMIN 1.6 g/dL (3.4-5.0); ALKALINE PHOSPHATASE 167 U/L (46-116); ANION GAP 7 mmol/L (8-16); ASPARTATE AMINOTRANSFERASE 59 U/L (15-37); BILIRUBIN,TOTAL 1.7 mg/dL (0.1-1.0); CALCIUM, TOTAL 8.6 mg/dL (8.8-10.5); CARBON DIOXIDE 28 mmol/L (22-29); CHLORIDE 104 mmol/L (98-107); CREATININE 1.05 mg/dL (0.60-1.30); GLOMERULAR FILTR. RATE CALC > 60 mL/min (>60); GLUCOSE,RANDOM 187 mg/dL (70-110); POTASSIUM 3.6 mmol/L (3.5-5.1); SODIUM SERUM 139 mmol/L (136-145); UREA NITROGEN, BLOOD 28 mg/dL (7-18)
[2020-03-05 08:00] VITALS: BP 91/57
[2020-03-05] MEDS: DEXAMETHASONE SOD PHOS 4 MG/ML VIAL IVP SCH (09:16)
[2020-03-05] MEDS: FAMOTIDINE 10 MG/ML 2 ML VIAL IVP SCH ×2 (09:17→21:21)
[2020-03-05] MEDS: ASCORBIC ACID 500 MG TABLET PO SCH ×2 (09:17→21:20)
[2020-03-05] MEDS: CHOLECALCIFEROL (VIT D3) 1,000 UNITS [25 MCG] TABLET PO SCH (09:17)
[2020-03-05] MEDS: APIXABAN 5 MG TABLET PO SCH ×2 (09:17→21:20)
[2020-03-05] MEDS: ZINC SULFATE 220 MG CAPSULE PO SCH ×2 (09:17→21:20)
[2020-03-05] MEDS: INSULIN GLARGINE,HUM.REC.ANLOG 100 UNITS/ML SQ SCH ×2 (09:22→22:25)
[2020-03-05 12:00] VITALS: BP 136/83
[2020-03-05 13:23] LABS: ABG A-A DIFF O2 165.8 mmHg (10-20.0); ABG BASE EXCESS 7.5 mmol/L (-2.0-3.0); ABG CARBOXYHEMOGLOBIN 0.9 % (0.0-1.5); ABG HCO3 30.5 mmol/L (22.0-26.0); ABG METHEMOGLOBIN 0.3 % (0.0-1.5); ABG OXYGEN CONTENT 14.2 mL/dL (15.0-23.0); ABG OXYGEN SATURATION 92.4 % (95.0-98.0); ABG OXYHEMOGLOBIN 91.3 % (94.0-100.0); ABG PCO2 46 mmHg (35-45); ABG PH 7.453 (7.35-7.450); PO2, ARTERIAL BG 66.1 mmHg (84.0-92.0); SOURCE, BLOOD GAS ARTERIAL; TEMPERATURE, FAHRENHEIT, BG 99.3 FAHREN (96.0-98.6)
[2020-03-05 13:24] LABS: O2 DEVICE,BLOOD GAS VENTILATOR (ROOM AIR); SITE, BLOOD GAS LFT RADIAL
[2020-03-05 13:25] LABS: PEEP,BG 5 cm H2O; PRESSURE SUPPORT, BG 8 cm H2O; SPONTANEOUS VT, BG 426 ml
[2020-03-05 13:26] LABS: VENT MODE, BG Press. Support Vent. (ROOM AIR)
[2020-03-05 13:39] LABS: GLUCOSE,POINT OF CARE 192 MG/DL (70-110)
[2020-03-05 13:39] LABS: GLUCOSE,POINT OF CARE 205 MG/DL (70-110)
[2020-03-05 16:00] VITALS: BP 130/7
[2020-03-05 18:56] LABS: GLUCOSE,POINT OF CARE 168 MG/DL (70-110)
[2020-03-05 20:00] VITALS: BP 130/77
[2020-03-05 22:34] LABS: GLUCOSE,POINT OF CARE 210 MG/DL (70-110)
[2020-03-05] MEDS: LORazepam 2 MG/ML VIAL IVP PRN (22:53)
[2020-03-06] VITALS: BP 127/76
[2020-03-06 04:00] VITALS: BP 124/90
[2020-03-06] MEDS: INSULIN LISPRO 100 UNITS/ML SQ PRN ×3 (06:09→17:52)
[2020-03-06] MEDS ORDERED: SODIUM CHLORIDE 0.9% 250 ML IV ONE ×2 (06:19→23:52)
[2020-03-06 06:43] LABS: BASOPHILS % (AUTO) 1.3 % (0.0-2.0); EOSINOPHILS % (AUTO) 7.3 % (1.0-6.0); HEMATOCRIT 28.4 % (41-53); HEMOGLOBIN 9.4 g/dL (13.5-17.5); LYMPHOCYTES # (AUTO) 1.1 K/uL (1.0-4.8); LYMPHOCYTES % (AUTO) 15.6 % (22.0-44.0); MEAN CORPUSCULAR HEMOGLOBIN 29.2 pg (26.0-34.0); MEAN CORPUSCULAR HGB CONC 33.2 G/dL (31.0-37.0); MEAN CORPUSCULAR VOLUME 88 fL (80-100); MONOCYTES # (AUTO) 0.4 K/uL (0.1-1.0); MONOCYTES % (AUTO) 5.2 % (2.0-9.0); NEUTROPHILS # (AUTO) 5.1 K/uL (1.8-7.7); NEUTROPHILS % (AUTO) 70.6 % (40.0-70.0); PLATELET COUNT (AUTO) 164 K/uL (150-450); RED BLOOD CELL COUNT(AUTO) 3.22 MIL/uL (4.50-5.90); RED CELL DISTRIBUTION WIDTH 16.2 % (11.5-14.5)
[2020-03-06 06:53] LABS: ALANINE AMINOTRANSFERASE 45 U/L (12-78); ALBUMIN 1.6 g/dL (3.4-5.0); ALKALINE PHOSPHATASE 158 U/L (46-116); ANION GAP 4 mmol/L (8-16); ASPARTATE AMINOTRANSFERASE 43 U/L (15-37); BILIRUBIN,TOTAL 1.3 mg/dL (0.1-1.0); C-REACTIVE PROTEIN QUANT 6.12 mg/dL (0.00-0.30); CALCIUM, TOTAL 8.4 mg/dL (8.8-10.5); CARBON DIOXIDE 31 mmol/L (22-29); CHLORIDE 102 mmol/L (98-107); CREATININE 1.01 mg/dL (0.60-1.30); GLOMERULAR FILTR. RATE CALC > 60 mL/min (>60); GLUCOSE,RANDOM 237 mg/dL (70-110); SODIUM SERUM 137 mmol/L (136-145); TOTAL PROTEIN, SERUM 6.6 g/dL (6.4-8.2); UREA NITROGEN, BLOOD 26 mg/dL (7-18)
[2020-03-06 08:00] VITALS: BP 111/69
[2020-03-06] MEDS: ZINC SULFATE 220 MG CAPSULE PO SCH ×2 (08:02→21:00)
[2020-03-06] MEDS: DEXAMETHASONE SOD PHOS 4 MG/ML VIAL IVP SCH (08:02)
[2020-03-06] MEDS: CHOLECALCIFEROL (VIT D3) 1,000 UNITS [25 MCG] TABLET PO SCH (08:03)
[2020-03-06] MEDS: ASCORBIC ACID 500 MG TABLET PO SCH ×2 (08:05→21:00)
[2020-03-06] MEDS: APIXABAN 5 MG TABLET PO SCH ×2 (08:05→21:00)
[2020-03-06] MEDS: FAMOTIDINE 10 MG/ML 2 ML VIAL IVP SCH ×2 (08:08→23:33)
[2020-03-06] MEDS: FUROSEMIDE 20 MG/2 ML VIAL IVP SCH (08:10)
[2020-03-06 09:45] LABS: GLUCOSE,POINT OF CARE 229 MG/DL (70-110)
[2020-03-06] MEDS: INSULIN GLARGINE,HUM.REC.ANLOG 100 UNITS/ML SQ SCH ×2 (10:04→23:30)
[2020-03-06 12:00] VITALS: BP 131/72
[2020-03-06] MEDS ORDERED: EPINEPHrine 1:10,000 [1 MG/10 ML] SYRINGE IVP ONE (12:00)
[2020-03-06 12:25] LABS: GLUCOSE,POINT OF CARE 234 MG/DL (70-110)
[2020-03-06 12:48] LABS: ABG A-A DIFF O2 163.9 mmHg (10-20.0); ABG BASE EXCESS 4.7 mmol/L (-2.0-3.0); ABG CARBOXYHEMOGLOBIN 0.8 % (0.0-1.5); ABG HCO3 28.3 mmol/L (22.0-26.0); ABG METHEMOGLOBIN 0.3 % (0.0-1.5); ABG OXYGEN CONTENT 14.4 mL/dL (15.0-23.0); ABG OXYGEN SATURATION 94.7 % (95.0-98.0); ABG OXYHEMOGLOBIN 93.7 % (94.0-100.0); ABG PCO2 40 mmHg (35-45); ABG PH 7.465 (7.35-7.450); ABG TOTAL HEMOGLOBIN 10.9 G/dL (12.0-18.0); O2 DEVICE,BLOOD GAS VENTILATOR (ROOM AIR); PO2, ARTERIAL BG 74.8 mmHg (84.0-92.0); SITE, BLOOD GAS RT RADIAL; SOURCE, BLOOD GAS ARTERIAL; TEMPERATURE, FAHRENHEIT, BG 98.6 FAHREN (96.0-98.6); VENT MODE, BG CPAP (ROOM AIR)
[2020-03-06 12:49] LABS: CPAP, BG 5 cm H2O; PRESSURE SUPPORT, BG 8 cm H2O; SPONTANEOUS VT, BG 430 ml
[2020-03-06] MEDS ORDERED: LABETALOL HCL 5 MG/ML 20 ML VIAL IVP PRN (13:45)
[2020-03-06 16:00] VITALS: BP 141/45
[2020-03-06 20:00] VITALS: BP 124/48
[2020-03-06 21:33] LABS: GLUCOSE,POINT OF CARE 203 MG/DL (70-110)
[2020-03-06 21:34] LABS: GLUCOSE,POINT OF CARE 149 MG/DL (70-110)
[2020-03-07] VITALS: BP 144/78
[2020-03-07 00:28] LABS: GLUCOSE,POINT OF CARE 74 MG/DL (70-110)
[2020-03-07 04:00] VITALS: BP 137/64
[2020-03-07 05:55] LABS: BASOPHILS % (AUTO) 0.9 % (0.0-2.0); EOSINOPHILS % (AUTO) 8.7 % (1.0-6.0); HEMOGLOBIN 9.8 g/dL (13.5-17.5); LYMPHOCYTES # (AUTO) 1.2 K/uL (1.0-4.8); LYMPHOCYTES % (AUTO) 18.8 % (22.0-44.0); MEAN CORPUSCULAR HEMOGLOBIN 29.5 pg (26.0-34.0); MEAN CORPUSCULAR HGB CONC 33.6 G/dL (31.0-37.0); MEAN CORPUSCULAR VOLUME 88 fL (80-100); MONOCYTES # (AUTO) 0.5 K/uL (0.1-1.0); MONOCYTES % (AUTO) 7.4 % (2.0-9.0); NEUTROPHILS # (AUTO) 4.2 K/uL (1.8-7.7); NEUTROPHILS % (AUTO) 64.2 % (40.0-70.0); PLATELET COUNT (AUTO) 183 K/uL (150-450); RED BLOOD CELL COUNT(AUTO) 3.31 MIL/uL (4.50-5.90); RED CELL DISTRIBUTION WIDTH 15.9 % (11.5-14.5)
[2020-03-07 06:23] LABS: ALANINE AMINOTRANSFERASE 50 U/L (12-78); ALBUMIN 1.8 g/dL (3.4-5.0); ALKALINE PHOSPHATASE 159 U/L (46-116); ANION GAP 3 mmol/L (8-16); ASPARTATE AMINOTRANSFERASE 49 U/L (15-37); BILIRUBIN,TOTAL 1.5 mg/dL (0.1-1.0); C-REACTIVE PROTEIN QUANT 4.97 mg/dL (0.00-0.30); CALCIUM, TOTAL 8.7 mg/dL (8.8-10.5); CARBON DIOXIDE 31 mmol/L (22-29); CHLORIDE 101 mmol/L (98-107); CREATININE 0.98 mg/dL (0.60-1.30); GLOMERULAR FILTR. RATE CALC > 60 mL/min (>60); GLUCOSE,RANDOM 86 mg/dL (70-110); POTASSIUM 3.4 mmol/L (3.5-5.1); SODIUM SERUM 135 mmol/L (136-145); TOTAL PROTEIN, SERUM 6.8 g/dL (6.4-8.2); UREA NITROGEN, BLOOD 19 mg/dL (7-18)
[2020-03-07 08:00] VITALS: BP 141/84
[2020-03-07] MEDS: INSULIN GLARGINE,HUM.REC.ANLOG 100 UNITS/ML SQ SCH ×2 (09:00→20:43)
[2020-03-07] MEDS: ASCORBIC ACID 500 MG TABLET PO SCH ×2 (09:00→20:41)
[2020-03-07] MEDS: APIXABAN 5 MG TABLET PO SCH ×2 (09:00→20:41)
[2020-03-07] MEDS: ZINC SULFATE 220 MG CAPSULE PO SCH ×2 (09:00→20:41)
[2020-03-07] MEDS: CHOLECALCIFEROL (VIT D3) 1,000 UNITS [25 MCG] TABLET PO SCH (09:00)
[2020-03-07] MEDS: FAMOTIDINE 10 MG/ML 2 ML VIAL IVP SCH ×2 (09:20→20:43)
[2020-03-07] MEDS: DEXAMETHASONE SOD PHOS 4 MG/ML VIAL IVP SCH (09:21)
[2020-03-07 12:00] VITALS: BP 107/68
[2020-03-07 13:04] LABS: GLUCOSE,POINT OF CARE 84 MG/DL (70-110)
[2020-03-07 13:28] LABS: GLUCOSE,POINT OF CARE 98 MG/DL (70-110)
[2020-03-07 16:00] VITALS: BP 71/52
[2020-03-07] MEDS: NOREPINEPHRINE 4 MG/D5%-WATER 250 ML IV PRN (16:24)
[2020-03-07 16:43] LABS: ABG A-A DIFF O2 371.9 mmHg (10-20.0); ABG BASE EXCESS -0.2 mmol/L (-2.0-3.0); ABG HCO3 24.2 mmol/L (22.0-26.0); ABG METHEMOGLOBIN 0.3 % (0.0-1.5); ABG OXYGEN CONTENT 16.3 mL/dL (15.0-23.0); ABG OXYGEN SATURATION 98.9 % (95.0-98.0); ABG OXYHEMOGLOBIN 97.6 % (94.0-100.0); ABG PCO2 46 mmHg (35-45); ABG TOTAL HEMOGLOBIN 11.7 G/dL (12.0-18.0); PO2, ARTERIAL BG 150.4 mmHg (84.0-92.0); SOURCE, BLOOD GAS ARTERIAL; TEMPERATURE, FAHRENHEIT, BG 98.6 FAHREN (96.0-98.6)
[2020-03-07 17:49] LABS: SITE, BLOOD GAS RT RADIAL
[2020-03-07 17:50] LABS: O2 DEVICE,BLOOD GAS VENTILATOR (ROOM AIR); VT, ABG 550 ml
[2020-03-07 17:51] LABS: PEEP,BG 5 cm H2O
[2020-03-07 20:00] VITALS: BP 149/75
[2020-03-07] MEDS: PROPOFOL 1000 MG/ISO-OSM 100 ML IV PRN (20:00)
[2020-03-07 20:50] LABS: GLUCOSE,POINT OF CARE 163 MG/DL (70-110)
[2020-03-07 20:51] LABS: GLUCOSE,POINT OF CARE 169 MG/DL (70-110)
[2020-03-07] MEDS: LORazepam 2 MG/ML VIAL IVP PRN (21:22)
[2020-03-07] MEDS: INSULIN LISPRO 100 UNITS/ML SQ PRN (23:25)
[2020-03-07 23:33] LABS: GLUCOSE,POINT OF CARE 167 MG/DL (70-110)
[2020-03-08] VITALS: BP 118/73
[2020-03-08] MEDS: PROPOFOL 1000 MG/ISO-OSM 100 ML IV PRN ×3 (02:33→16:31)
[2020-03-08] MEDS: NOREPINEPHRINE 4 MG/D5%-WATER 250 ML IV PRN (02:34)
[2020-03-08 04:00] VITALS: BP 133/67
[2020-03-08] MEDS: INSULIN LISPRO 100 UNITS/ML SQ PRN ×4 (05:43→23:48)
[2020-03-08 06:11] LABS: BASOPHILS % (AUTO) 0.4 % (0.0-2.0); EOSINOPHILS % (AUTO) 2.6 % (1.0-6.0); HEMATOCRIT 29.6 % (41-53); HEMOGLOBIN 9.9 g/dL (13.5-17.5); LYMPHOCYTES # (AUTO) 1.2 K/uL (1.0-4.8); LYMPHOCYTES % (AUTO) 9.2 % (22.0-44.0); MEAN CORPUSCULAR HEMOGLOBIN 29.3 pg (26.0-34.0); MEAN CORPUSCULAR HGB CONC 33.3 G/dL (31.0-37.0); MEAN CORPUSCULAR VOLUME 88 fL (80-100); MONOCYTES # (AUTO) 0.6 K/uL (0.1-1.0); MONOCYTES % (AUTO) 4.8 % (2.0-9.0); NEUTROPHILS # (AUTO) 10.5 K/uL (1.8-7.7); PLATELET COUNT (AUTO) 232 K/uL (150-450); RED BLOOD CELL COUNT(AUTO) 3.37 MIL/uL (4.50-5.90); RED CELL DISTRIBUTION WIDTH 16.1 % (11.5-14.5)
[2020-03-08 06:30] LABS: CREATININE 1.32 mg/dL (0.60-1.30); POTASSIUM 3.7 mmol/L (3.5-5.1)
[2020-03-08 06:31] LABS: ALBUMIN 1.9 g/dL (3.4-5.0); BILIRUBIN,TOTAL 1.8 mg/dL (0.1-1.0); C-REACTIVE PROTEIN QUANT 6.99 mg/dL (0.00-0.30); CALCIUM, TOTAL 8.1 mg/dL (8.8-10.5); TOTAL PROTEIN, SERUM 6.8 g/dL (6.4-8.2)
[2020-03-08 06:43] LABS: GLUCOSE,POINT OF CARE 162 MG/DL (70-110)
[2020-03-08 08:00] VITALS: BP 122/69
[2020-03-08 08:39] LABS: GLUCOSE,POINT OF CARE 157 MG/DL (70-110)
[2020-03-08] MEDS: CHOLECALCIFEROL (VIT D3) 1,000 UNITS [25 MCG] TABLET PO SCH (08:55)
[2020-03-08] MEDS: APIXABAN 5 MG TABLET PO SCH ×2 (08:55→20:35)
[2020-03-08] MEDS: ASCORBIC ACID 500 MG TABLET PO SCH ×2 (08:55→20:35)
[2020-03-08] MEDS: FUROSEMIDE 20 MG/2 ML VIAL IVP SCH (08:55)
[2020-03-08] MEDS: FAMOTIDINE 10 MG/ML 2 ML VIAL IVP SCH ×2 (08:55→20:35)
[2020-03-08] MEDS: ZINC SULFATE 220 MG CAPSULE PO SCH (08:55)
[2020-03-08] MEDS: DEXAMETHASONE SOD PHOS 4 MG/ML VIAL IVP SCH (08:56)
[2020-03-08] MEDS: INSULIN GLARGINE,HUM.REC.ANLOG 100 UNITS/ML SQ SCH ×2 (08:56→20:31)
[2020-03-08] MEDS ORDERED: *CLINICAL-RX DOSING [ENTER DRUG IN COMMENTS] CLINICAL ONE (10:30)
[2020-03-08 12:00] VITALS: BP 124/69
[2020-03-08 12:37] LABS: GLUCOSE,POINT OF CARE 196 MG/DL (70-110)
[2020-03-08 16:00] VITALS: BP 103/66
[2020-03-08] MEDS ORDERED: SODIUM CHLORIDE 0.9% 100 ML ONE (16:52)
[2020-03-08] MEDS ORDERED: IOVERSOL 320 MG/ML 100 ML VIAL ONE (16:52)
[2020-03-08 18:52] LABS: GLUCOSE,POINT OF CARE 186 MG/DL (70-110)
[2020-03-08 20:00] VITALS: BP 109/72
[2020-03-08] MEDS ORDERED: SODIUM CHLORIDE 0.9% 250 ML IV ONE (23:08)
[2020-03-09] VITALS: BP 108/74
[2020-03-09] MEDS: PROPOFOL 1000 MG/ISO-OSM 100 ML IV PRN ×2 (00:28→07:40)
[2020-03-09 04:00] VITALS: BP 120/56
[2020-03-09 04:22] LABS: GLUCOSE,POINT OF CARE 167 MG/DL (70-110)
[2020-03-09] MEDS: INSULIN LISPRO 100 UNITS/ML SQ PRN ×3 (05:52→23:53)
[2020-03-09 06:06] LABS: GLUCOSE,POINT OF CARE 168 MG/DL (70-110)
[2020-03-09 06:28] LABS: BASOPHILS % (AUTO) 0.3 % (0.0-2.0); EOSINOPHILS % (AUTO) 8.8 % (1.0-6.0); HEMATOCRIT 31.2 % (41-53); HEMOGLOBIN 10.2 g/dL (13.5-17.5); LYMPHOCYTES # (AUTO) 1.1 K/uL (1.0-4.8); LYMPHOCYTES % (AUTO) 15.6 % (22.0-44.0); MEAN CORPUSCULAR HEMOGLOBIN 29.3 pg (26.0-34.0); MEAN CORPUSCULAR HGB CONC 32.9 G/dL (31.0-37.0); MEAN CORPUSCULAR VOLUME 89 fL (80-100); MONOCYTES # (AUTO) 0.5 K/uL (0.1-1.0); MONOCYTES % (AUTO) 7.4 % (2.0-9.0); NEUTROPHILS # (AUTO) 4.7 K/uL (1.8-7.7); NEUTROPHILS % (AUTO) 67.9 % (40.0-70.0); PLATELET COUNT (AUTO) 199 K/uL (150-450)
[2020-03-09 07:31] LABS: BILIRUBIN,TOTAL 1.3 mg/dL (0.1-1.0); C-REACTIVE PROTEIN QUANT 9.16 mg/dL (0.00-0.30); CALCIUM, TOTAL 8.7 mg/dL (8.8-10.5); CREATININE 1.28 mg/dL (0.60-1.30); POTASSIUM 3.8 mmol/L (3.5-5.1); TOTAL PROTEIN, SERUM 7.1 g/dL (6.4-8.2)
[2020-03-09 08:00] VITALS: BP 112/71
[2020-03-09] MEDS: ASCORBIC ACID 500 MG TABLET PO SCH ×2 (08:51→20:38)
[2020-03-09] MEDS: APIXABAN 5 MG TABLET PO SCH ×2 (08:51→20:38)
[2020-03-09] MEDS: FAMOTIDINE 10 MG/ML 2 ML VIAL IVP SCH ×2 (08:51→20:38)
[2020-03-09] MEDS: DEXAMETHASONE SOD PHOS 4 MG/ML VIAL IVP SCH (08:51)
[2020-03-09] MEDS: CHOLECALCIFEROL (VIT D3) 1,000 UNITS [25 MCG] TABLET PO SCH (08:51)
[2020-03-09] MEDS: INSULIN GLARGINE,HUM.REC.ANLOG 100 UNITS/ML SQ SCH ×2 (09:01→20:39)
[2020-03-09] MEDS: AMINO ACIDS/PROTEIN HYDROLYS 30 ML TUBE PO SCH (09:02)
[2020-03-09 12:00] VITALS: BP 133/75
[2020-03-09 12:09] LABS: GLUCOSE,POINT OF CARE 234 MG/DL (70-110)
[2020-03-09 16:00] VITALS: BP 134/76
[2020-03-09 18:34] LABS: GLUCOSE,POINT OF CARE 222 MG/DL (70-110)
[2020-03-09 20:00] VITALS: BP 114/73
[2020-03-10] VITALS: BP 124/64
[2020-03-10 01:52] LABS: GLUCOSE,POINT OF CARE 230 MG/DL (70-110)
[2020-03-10 01:53] LABS: GLUCOSE,POINT OF CARE 226 MG/DL (70-110)
[2020-03-10] MEDS ORDERED: SODIUM CHLORIDE 0.9% 250 ML IV ONE (03:05)
[2020-03-10 04:00] VITALS: BP 107/53
[2020-03-10 05:07] LABS: GLUCOSE,POINT OF CARE 262 MG/DL (70-110)
[2020-03-10 05:11] LABS: BASOPHILS % (AUTO) 1.3 % (0.0-2.0); EOSINOPHILS % (AUTO) 8.1 % (1.0-6.0); HEMATOCRIT 27.8 % (41-53); HEMOGLOBIN 9.2 g/dL (13.5-17.5); LYMPHOCYTES # (AUTO) 1.1 K/uL (1.0-4.8); LYMPHOCYTES % (AUTO) 17.5 % (22.0-44.0); MEAN CORPUSCULAR HEMOGLOBIN 29.4 pg (26.0-34.0); MEAN CORPUSCULAR HGB CONC 33.1 G/dL (31.0-37.0); MEAN CORPUSCULAR VOLUME 89 fL (80-100); MONOCYTES # (AUTO) 0.7 K/uL (0.1-1.0); MONOCYTES % (AUTO) 11.2 % (2.0-9.0); NEUTROPHILS # (AUTO) 3.8 K/uL (1.8-7.7); NEUTROPHILS % (AUTO) 61.9 % (40.0-70.0); PLATELET COUNT (AUTO) 219 K/uL (150-450); RED BLOOD CELL COUNT(AUTO) 3.12 MIL/uL (4.50-5.90); RED CELL DISTRIBUTION WIDTH 16.9 % (11.5-14.5)
[2020-03-10] MEDS: INSULIN LISPRO 100 UNITS/ML SQ PRN ×3 (05:34→18:06)
[2020-03-10 05:50] LABS: ALANINE AMINOTRANSFERASE 66 U/L (12-78); ALBUMIN 1.8 g/dL (3.4-5.0); ALKALINE PHOSPHATASE 167 U/L (46-116); ANION GAP 3 mmol/L (8-16); ASPARTATE AMINOTRANSFERASE 37 U/L (15-37); BILIRUBIN,TOTAL 1.1 mg/dL (0.1-1.0); C-REACTIVE PROTEIN QUANT 6.95 mg/dL (0.00-0.30); CALCIUM, TOTAL 8.2 mg/dL (8.8-10.5); CARBON DIOXIDE 30 mmol/L (22-29); CHLORIDE 102 mmol/L (98-107); CREATININE 1.17 mg/dL (0.60-1.30); GLOMERULAR FILTR. RATE CALC > 60 mL/min (>60); GLUCOSE,RANDOM 269 mg/dL (70-110); PHOSPHORUS 2.7 mg/dL (2.5-4.9); POTASSIUM 3.8 mmol/L (3.5-5.1); SODIUM SERUM 135 mmol/L (136-145); TOTAL PROTEIN, SERUM 6.7 g/dL (6.4-8.2); UREA NITROGEN, BLOOD 34 mg/dL (7-18)
[2020-03-10 08:00] VITALS: BP 112/60
[2020-03-10] MEDS: MULTIVITAMINS, THERAPEUTIC 15 ML UDCUP PO SCH (09:00)
[2020-03-10] MEDS: AMINO ACIDS/PROTEIN HYDROLYS 30 ML TUBE PO SCH (09:31)
[2020-03-10] MEDS: FAMOTIDINE 10 MG/ML 2 ML VIAL IVP SCH ×2 (09:33→21:10)
[2020-03-10] MEDS: FUROSEMIDE 20 MG/2 ML VIAL IVP SCH (09:33)
[2020-03-10] MEDS: CHOLECALCIFEROL (VIT D3) 1,000 UNITS [25 MCG] TABLET PO SCH (09:33)
[2020-03-10] MEDS: ASCORBIC ACID 500 MG TABLET PO SCH ×2 (09:33→21:10)
[2020-03-10] MEDS: APIXABAN 5 MG TABLET PO SCH ×2 (09:34→21:10)
[2020-03-10] MEDS: INSULIN GLARGINE,HUM.REC.ANLOG 100 UNITS/ML SQ SCH ×2 (09:36→21:43)
[2020-03-10 12:00] VITALS: BP 122/64
[2020-03-10 16:00] VITALS: BP 112/58
[2020-03-10 20:00] VITALS: BP 119/67
[2020-03-10 20:30] LABS: GLUCOSE,POINT OF CARE 325 MG/DL (70-110)
[2020-03-10] MEDS: LevETIRAcetam 500 MG in DEXTROSE 5%-WATER 100 ML IV SCH (20:32)
[2020-03-10 21:42] LABS: GLUCOSE,POINT OF CARE 287 MG/DL (70-110)
[2020-03-10 21:42] LABS: GLUCOSE,POINT OF CARE 292 MG/DL (70-110)
[2020-03-11] VITALS: BP 124/67
[2020-03-11 00:48] LABS: GLUCOSE,POINT OF CARE 300 MG/DL (70-110)
[2020-03-11 04:00] VITALS: BP 134/62
[2020-03-11] MEDS: INSULIN LISPRO 100 UNITS/ML SQ PRN ×3 (05:39→17:57)
[2020-03-11 05:45] LABS: GLUCOSE,POINT OF CARE 278 MG/DL (70-110)
[2020-03-11 08:00] VITALS: BP 139/73
[2020-03-11] MEDS: AMINO ACIDS/PROTEIN HYDROLYS 30 ML TUBE PO SCH (08:24)
[2020-03-11] MEDS ORDERED: SODIUM CHLORIDE 0.9% 250 ML IV ONE (08:30)
[2020-03-11] MEDS: APIXABAN 5 MG TABLET PO SCH ×2 (08:44→20:16)
[2020-03-11] MEDS: CHOLECALCIFEROL (VIT D3) 1,000 UNITS [25 MCG] TABLET PO SCH (08:44)
[2020-03-11] MEDS: LevETIRAcetam 500 MG in DEXTROSE 5%-WATER 100 ML IV SCH ×2 (08:44→20:17)
[2020-03-11] MEDS: FUROSEMIDE 20 MG/2 ML VIAL IVP SCH (08:45)
[2020-03-11] MEDS: ASCORBIC ACID 500 MG TABLET PO SCH ×2 (08:45→20:16)
[2020-03-11] MEDS: FAMOTIDINE 10 MG/ML 2 ML VIAL IVP SCH ×2 (08:45→20:16)
[2020-03-11] MEDS: MULTIVITAMINS, THERAPEUTIC 15 ML UDCUP PO SCH (08:46)
[2020-03-11] MEDS: INSULIN GLARGINE,HUM.REC.ANLOG 100 UNITS/ML SQ SCH ×2 (08:47→20:46)
[2020-03-11 12:00] VITALS: BP 159/73
[2020-03-11 16:00] VITALS: BP 105/57
[2020-03-11 16:48] LABS: GLUCOSE,POINT OF CARE 321 MG/DL (70-110)
[2020-03-11 17:35] LABS: GLUCOSE,POINT OF CARE 234 MG/DL (70-110)
[2020-03-11] MEDS: ACETAMINOPHEN 325 MG TABLET PO PRN (17:55)
[2020-03-11 18:18] LABS: APPEARANCE,URINE CLEAR (CLEAR); BILIRUBIN,URINE NEGATIVE (NEGATIVE); GLUCOSE, URINE (UA) 250 mg/dL (NEGATIVE); KETONES,URINE NEGATIVE (NEGATIVE); LEUKOCYTE ESTERASE ,URINE NEGATIVE (NEGATIVE); NITRATE,URINE NEGATIVE (NEGATIVE); OCCULT BLOOD,URINE NEGATIVE (NEGATIVE); PH,URINE 7.5 (5.0-8.0); PROTEIN,URINE POS 1+ (NEGATIVE)
[2020-03-11 18:21] LABS: BACTERIA,URINE None Seen /HPF (None Seen); RBC,URINE None Seen /HPF (0-2); WBC,URINE None Seen /HPF (0-5)
[2020-03-11 20:00] VITALS: BP 132/79
[2020-03-11 21:22] LABS: GLUCOSE,POINT OF CARE 266 MG/DL (70-110)
[2020-03-12] VITALS: BP 134/77
[2020-03-12 00:09] LABS: GLUCOSE,POINT OF CARE 277 MG/DL (70-110)
[2020-03-12] MEDS: INSULIN LISPRO 100 UNITS/ML SQ PRN ×5 (00:29→23:19)
[2020-03-12 04:00] VITALS: BP 118/72
[2020-03-12 05:28] LABS: EOSINOPHILS % (AUTO) 8.5 % (1.0-6.0); HEMATOCRIT 29.5 % (41-53); HEMOGLOBIN 9.6 g/dL (13.5-17.5); LYMPHOCYTES # (AUTO) 0.9 K/uL (1.0-4.8); LYMPHOCYTES % (AUTO) 16.7 % (22.0-44.0); MEAN CORPUSCULAR HEMOGLOBIN 29.4 pg (26.0-34.0); MEAN CORPUSCULAR HGB CONC 32.6 G/dL (31.0-37.0); MEAN CORPUSCULAR VOLUME 90 fL (80-100); MONOCYTES # (AUTO) 0.5 K/uL (0.1-1.0); MONOCYTES % (AUTO) 9.3 % (2.0-9.0); NEUTROPHILS # (AUTO) 3.6 K/uL (1.8-7.7); NEUTROPHILS % (AUTO) 64.5 % (40.0-70.0); PLATELET COUNT (AUTO) 244 K/uL (150-450); RED BLOOD CELL COUNT(AUTO) 3.27 MIL/uL (4.50-5.90); RED CELL DISTRIBUTION WIDTH 17.2 % (11.5-14.5)
[2020-03-12 05:37] LABS: GLUCOSE,POINT OF CARE 264 MG/DL (70-110)
[2020-03-12 06:04] LABS: ALANINE AMINOTRANSFERASE 51 U/L (12-78); ALBUMIN 1.8 g/dL (3.4-5.0); ALKALINE PHOSPHATASE 179 U/L (46-116); ANION GAP 0 mmol/L (8-16); ASPARTATE AMINOTRANSFERASE 29 U/L (15-37); BILIRUBIN,TOTAL 0.9 mg/dL (0.1-1.0); C-REACTIVE PROTEIN QUANT 4.66 mg/dL (0.00-0.30); CALCIUM, TOTAL 8.1 mg/dL (8.8-10.5); CARBON DIOXIDE 32 mmol/L (22-29); CHLORIDE 102 mmol/L (98-107); CREATININE 1.02 mg/dL (0.60-1.30); GLOMERULAR FILTR. RATE CALC > 60 mL/min (>60); GLUCOSE,RANDOM 280 mg/dL (70-110); PHOSPHORUS 3.8 mg/dL (2.5-4.9); POTASSIUM 3.5 mmol/L (3.5-5.1); SODIUM SERUM 134 mmol/L (136-145); TOTAL PROTEIN, SERUM 6.8 g/dL (6.4-8.2); UREA NITROGEN, BLOOD 29 mg/dL (7-18)
[2020-03-12 08:00] VITALS: BP 139/74
[2020-03-12] MEDS: AMINO ACIDS/PROTEIN HYDROLYS 30 ML TUBE PO SCH (08:42)
[2020-03-12] MEDS: MULTIVITAMINS, THERAPEUTIC 15 ML UDCUP PO SCH (10:13)
[2020-03-12] MEDS: APIXABAN 5 MG TABLET PO SCH ×2 (10:13→20:18)
[2020-03-12] MEDS: LevETIRAcetam 500 MG in DEXTROSE 5%-WATER 100 ML IV SCH ×2 (10:13→20:46)
[2020-03-12] MEDS: ASCORBIC ACID 500 MG TABLET PO SCH ×2 (10:14→20:18)
[2020-03-12] MEDS: CHOLECALCIFEROL (VIT D3) 1,000 UNITS [25 MCG] TABLET PO SCH (10:14)
[2020-03-12] MEDS: FUROSEMIDE 20 MG/2 ML VIAL IVP SCH (10:15)
[2020-03-12] MEDS: FAMOTIDINE 10 MG/ML 2 ML VIAL IVP SCH ×2 (10:16→20:18)
[2020-03-12] MEDS: INSULIN GLARGINE,HUM.REC.ANLOG 100 UNITS/ML SQ SCH ×2 (10:21→20:48)
[2020-03-12 12:00] VITALS: BP 154/76
[2020-03-12 16:00] VITALS: BP 117/72
[2020-03-12] MEDS ORDERED: SODIUM CHLORIDE 0.9% 250 ML IV ONE (17:31)
[2020-03-12 20:00] VITALS: BP 139/97
[2020-03-13] VITALS: BP 131/73
[2020-03-13 00:05] LABS: GLUCOSE,POINT OF CARE 275 MG/DL (70-110)
[2020-03-13 00:05] LABS: GLUCOSE,POINT OF CARE 283 MG/DL (70-110)
[2020-03-13 04:00] VITALS: BP 115/81
[2020-03-13] MEDS: INSULIN LISPRO 100 UNITS/ML SQ PRN ×4 (05:30→23:48)
[2020-03-13 07:08] LABS: GLUCOSE,POINT OF CARE 245 MG/DL (70-110)
[2020-03-13 07:08] LABS: GLUCOSE,POINT OF CARE 261 MG/DL (70-110)
[2020-03-13] MEDS: LevETIRAcetam 500 MG in DEXTROSE 5%-WATER 100 ML IV SCH ×2 (07:58→20:34)
[2020-03-13 08:00] VITALS: BP 127/55
[2020-03-13] MEDS: AMINO ACIDS/PROTEIN HYDROLYS 30 ML TUBE PO SCH (08:46)
[2020-03-13] MEDS: CHOLECALCIFEROL (VIT D3) 1,000 UNITS [25 MCG] TABLET PO SCH (08:47)
[2020-03-13] MEDS: MULTIVITAMINS, THERAPEUTIC 15 ML UDCUP PO SCH (08:47)
[2020-03-13] MEDS: APIXABAN 5 MG TABLET PO SCH ×2 (08:47→20:26)
[2020-03-13] MEDS: FAMOTIDINE 10 MG/ML 2 ML VIAL IVP SCH ×2 (08:47→20:26)
[2020-03-13] MEDS: ASCORBIC ACID 500 MG TABLET PO SCH ×2 (08:47→20:26)
[2020-03-13] MEDS: INSULIN GLARGINE,HUM.REC.ANLOG 100 UNITS/ML SQ SCH ×2 (08:48→22:38)
[2020-03-13 09:32] LABS: BASOPHILS % (AUTO) 0.9 % (0.0-2.0); EOSINOPHILS % (AUTO) 5.2 % (1.0-6.0); HEMATOCRIT 30.1 % (41-53); LYMPHOCYTES # (AUTO) 1.2 K/uL (1.0-4.8); LYMPHOCYTES % (AUTO) 15.3 % (22.0-44.0); MEAN CORPUSCULAR HEMOGLOBIN 29.6 pg (26.0-34.0); MEAN CORPUSCULAR VOLUME 90 fL (80-100); MONOCYTES # (AUTO) 0.5 K/uL (0.1-1.0); MONOCYTES % (AUTO) 6.7 % (2.0-9.0); NEUTROPHILS # (AUTO) 5.5 K/uL (1.8-7.7); NEUTROPHILS % (AUTO) 71.9 % (40.0-70.0); PLATELET COUNT (AUTO) 260 K/uL (150-450); RED BLOOD CELL COUNT(AUTO) 3.36 MIL/uL (4.50-5.90); RED CELL DISTRIBUTION WIDTH 17.3 % (11.5-14.5)
[2020-03-13 09:44] LABS: ANION GAP 5 mmol/L (8-16); CALCIUM, TOTAL 7.4 mg/dL (8.8-10.5); CARBON DIOXIDE 32 mmol/L (22-29); CHLORIDE 100 mmol/L (98-107); CREATININE 0.83 mg/dL (0.60-1.30); GLOMERULAR FILTR. RATE CALC > 60 mL/min (>60); GLUCOSE,RANDOM 289 mg/dL (70-110); POTASSIUM 3.8 mmol/L (3.5-5.1); SODIUM SERUM 137 mmol/L (136-145); UREA NITROGEN, BLOOD 30 mg/dL (7-18)
[2020-03-13 09:59] LABS: ALANINE AMINOTRANSFERASE 51 U/L (12-78); ALBUMIN 1.9 g/dL (3.4-5.0); ALKALINE PHOSPHATASE 198 U/L (46-116); ASPARTATE AMINOTRANSFERASE 34 U/L (15-37); BILIRUBIN,TOTAL 0.9 mg/dL (0.1-1.0)
[2020-03-13 12:00] VITALS: BP 118/56
[2020-03-13 12:15] LABS: GLUCOSE,POINT OF CARE 257 MG/DL (70-110)
[2020-03-13 12:15] LABS: GLUCOSE,POINT OF CARE 330 MG/DL (70-110)
[2020-03-13 16:00] VITALS: BP 128/71
[2020-03-13] MEDS: ACETAMINOPHEN 325 MG TABLET PO PRN (16:36)
[2020-03-13 19:02] LABS: GLUCOSE,POINT OF CARE 307 MG/DL (70-110)
[2020-03-13 20:00] VITALS: BP 121/75
[2020-03-13 21:34] LABS: CREATININE,URINE RANDOM 67.2 mg/dL (30.0-125.0)
[2020-03-13] MEDS ORDERED: SODIUM CHLORIDE 0.9% 250 ML IV ONE (22:23)
[2020-03-13] MEDS: AMPICILLIN SODIUM/SULBACTAM NA 3 GM in SODIUM CHLORIDE 0.9% 100 ML IV SCH (22:40)
[2020-03-13 23:58] LABS: GLUCOSE,POINT OF CARE 299 MG/DL (70-110)
[2020-03-14] MEDS: ACETAMINOPHEN 325 MG TABLET PO PRN (00:31)
[2020-03-14 00:43] VITALS: BP 106/57
[2020-03-14 04:00] VITALS: BP 108/73
[2020-03-14] MEDS: AMPICILLIN SODIUM/SULBACTAM NA 3 GM in SODIUM CHLORIDE 0.9% 100 ML IV SCH ×4 (05:18→21:04)
[2020-03-14] MEDS: INSULIN LISPRO 100 UNITS/ML SQ PRN ×3 (05:27→17:41)
[2020-03-14 06:03] LABS: GLUCOSE,POINT OF CARE 244 MG/DL (70-110)
[2020-03-14 06:26] LABS: BASOPHILS % (AUTO) 1.1 % (0.0-2.0); EOSINOPHILS % (AUTO) 3.8 % (1.0-6.0); HEMATOCRIT 30.5 % (41-53); LYMPHOCYTES # (AUTO) 1.4 K/uL (1.0-4.8); LYMPHOCYTES % (AUTO) 16.6 % (22.0-44.0); MEAN CORPUSCULAR HEMOGLOBIN 29.6 pg (26.0-34.0); MEAN CORPUSCULAR HGB CONC 32.8 G/dL (31.0-37.0); MEAN CORPUSCULAR VOLUME 90 fL (80-100); MONOCYTES # (AUTO) 0.6 K/uL (0.1-1.0); MONOCYTES % (AUTO) 7.2 % (2.0-9.0); NEUTROPHILS % (AUTO) 71.3 % (40.0-70.0); PLATELET COUNT (AUTO) 257 K/uL (150-450); RED BLOOD CELL COUNT(AUTO) 3.38 MIL/uL (4.50-5.90)
[2020-03-14 07:32] LABS: ALANINE AMINOTRANSFERASE 53 U/L (12-78); ALBUMIN 1.9 g/dL (3.4-5.0); ALKALINE PHOSPHATASE 221 U/L (46-116); ANION GAP 7 mmol/L (8-16); ASPARTATE AMINOTRANSFERASE 35 U/L (15-37); BILIRUBIN,TOTAL 1.1 mg/dL (0.1-1.0); C-REACTIVE PROTEIN QUANT 9.11 mg/dL (0.00-0.30); CALCIUM, TOTAL 8.5 mg/dL (8.8-10.5); CARBON DIOXIDE 31 mmol/L (22-29); CHLORIDE 98 mmol/L (98-107); CREATININE 1.03 mg/dL (0.60-1.30); GLOMERULAR FILTR. RATE CALC > 60 mL/min (>60); GLUCOSE,RANDOM 267 mg/dL (70-110); POTASSIUM 3.6 mmol/L (3.5-5.1); SODIUM SERUM 136 mmol/L (136-145); TOTAL PROTEIN, SERUM 7.2 g/dL (6.4-8.2); UREA NITROGEN, BLOOD 37 mg/dL (7-18)
[2020-03-14 08:35] VITALS: BP 118/59
[2020-03-14] MEDS: ASCORBIC ACID 500 MG TABLET PO SCH ×2 (08:58→19:53)
[2020-03-14] MEDS: FAMOTIDINE 10 MG/ML 2 ML VIAL IVP SCH ×2 (08:58→20:28)
[2020-03-14] MEDS: LevETIRAcetam 500 MG in DEXTROSE 5%-WATER 100 ML IV SCH ×2 (08:58→19:54)
[2020-03-14] MEDS: AMINO ACIDS/PROTEIN HYDROLYS 30 ML TUBE PO SCH (08:58)
[2020-03-14] MEDS: FUROSEMIDE 20 MG/2 ML VIAL IVP SCH (08:58)
[2020-03-14] MEDS: CHOLECALCIFEROL (VIT D3) 1,000 UNITS [25 MCG] TABLET PO SCH (08:58)
[2020-03-14] MEDS: MULTIVITAMINS, THERAPEUTIC 15 ML UDCUP PO SCH (08:59)
[2020-03-14] MEDS: APIXABAN 5 MG TABLET PO SCH ×2 (08:59→19:53)
[2020-03-14] MEDS: INSULIN GLARGINE,HUM.REC.ANLOG 100 UNITS/ML SQ SCH ×2 (09:01→20:30)
[2020-03-14 12:00] VITALS: BP 125/58
[2020-03-14 13:33] LABS: GLUCOSE,POINT OF CARE 330 MG/DL (70-110)
[2020-03-14 16:00] VITALS: BP 131/60
[2020-03-14] MEDS: LORazepam 2 MG/ML VIAL IVP PRN (16:37)
[2020-03-14 17:19] LABS: GLUCOSE,POINT OF CARE 257 MG/DL (70-110)
[2020-03-14 19:58] LABS: GLUCOSE,POINT OF CARE 330 MG/DL (70-110)
[2020-03-14 20:00] VITALS: BP 121/39
[2020-03-15] VITALS: BP 124/81
[2020-03-15 00:07] LABS: GLUCOSE,POINT OF CARE 296 MG/DL (70-110)
[2020-03-15 04:16] VITALS: BP 124/66
[2020-03-15] MEDS: AMPICILLIN SODIUM/SULBACTAM NA 3 GM in SODIUM CHLORIDE 0.9% 100 ML IV SCH ×4 (05:04→22:21)
[2020-03-15] MEDS: INSULIN LISPRO 100 UNITS/ML SQ PRN ×4 (05:17→18:42)
[2020-03-15 07:19] LABS: ANION GAP 10 mmol/L (8-16); CALCIUM, TOTAL 7.4 mg/dL (8.8-10.5); CARBON DIOXIDE 28 mmol/L (22-29); CHLORIDE 104 mmol/L (98-107); CREATININE 0.96 mg/dL (0.60-1.30); GLOMERULAR FILTR. RATE CALC > 60 mL/min (>60); GLUCOSE,RANDOM 294 mg/dL (70-110); PHOSPHORUS 2.5 mg/dL (2.5-4.9); POTASSIUM 3.1 mmol/L (3.5-5.1); SODIUM SERUM 142 mmol/L (136-145); UREA NITROGEN, BLOOD 35 mg/dL (7-18)
[2020-03-15 08:00] VITALS: BP 120/65
[2020-03-15] MEDS: AMINO ACIDS/PROTEIN HYDROLYS 30 ML TUBE PO SCH (08:36)
[2020-03-15] MEDS: APIXABAN 5 MG TABLET PO SCH ×2 (08:50→19:59)
[2020-03-15] MEDS: CHOLECALCIFEROL (VIT D3) 1,000 UNITS [25 MCG] TABLET PO SCH (08:50)
[2020-03-15] MEDS: FAMOTIDINE 10 MG/ML 2 ML VIAL IVP SCH ×2 (08:50→20:00)
[2020-03-15] MEDS: LevETIRAcetam 500 MG in DEXTROSE 5%-WATER 100 ML IV SCH ×2 (08:50→19:48)
[2020-03-15] MEDS: MULTIVITAMINS, THERAPEUTIC 15 ML UDCUP PO SCH (08:51)
[2020-03-15] MEDS: ASCORBIC ACID 500 MG TABLET PO SCH ×2 (08:51→20:00)
[2020-03-15 12:00] VITALS: BP 126/80
[2020-03-15] MEDS ORDERED: MAGNESIUM SULFATE 2 GM/WATER 50 ML IV PRN (12:45)
[2020-03-15] MEDS ORDERED: MAGNESIUM SULFATE 4 GM/WATER 100 ML IV PRN (12:45)
[2020-03-15] MEDS: POTASSIUM CHL 10 MEQ/WATER 50 ML IV PRN ×3 (12:51→15:07)
[2020-03-15] MEDS: INSULIN GLARGINE,HUM.REC.ANLOG 100 UNITS/ML SQ SCH ×2 (12:52→20:27)
[2020-03-15 14:26] LABS: GLUCOSE,POINT OF CARE 309 MG/DL (70-110)
[2020-03-15 14:27] LABS: GLUCOSE,POINT OF CARE 293 MG/DL (70-110)
[2020-03-15 16:00] VITALS: BP 122/71
[2020-03-15] MEDS ORDERED: MAGNESIUM SULFATE 2 GM/WATER 50 ML IV ONE (18:45)
[2020-03-15 20:00] VITALS: BP 116/74
[2020-03-15 20:14] LABS: GLUCOSE,POINT OF CARE 269 MG/DL (70-110)
[2020-03-16] VITALS: BP 110/79
[2020-03-16] MEDS: INSULIN LISPRO 100 UNITS/ML SQ PRN ×4 (00:14→18:06)
[2020-03-16 04:00] VITALS: BP 120/59
[2020-03-16] MEDS: AMPICILLIN SODIUM/SULBACTAM NA 3 GM in SODIUM CHLORIDE 0.9% 100 ML IV SCH ×4 (04:19→22:30)
[2020-03-16 04:48] LABS: GLUCOSE,POINT OF CARE 312 MG/DL (70-110)
[2020-03-16 04:48] LABS: GLUCOSE,POINT OF CARE 299 MG/DL (70-110)
[2020-03-16 06:59] LABS: ANION GAP 6 mmol/L (8-16); CALCIUM, TOTAL 8.5 mg/dL (8.8-10.5); CARBON DIOXIDE 31 mmol/L (22-29); CHLORIDE 102 mmol/L (98-107); CREATININE 1.04 mg/dL (0.60-1.30); GLOMERULAR FILTR. RATE CALC > 60 mL/min (>60); GLUCOSE,RANDOM 264 mg/dL (70-110); PHOSPHORUS 2.7 mg/dL (2.5-4.9); POTASSIUM 3.6 mmol/L (3.5-5.1); SODIUM SERUM 139 mmol/L (136-145); UREA NITROGEN, BLOOD 33 mg/dL (7-18)
[2020-03-16 07:11] LABS: GLUCOSE,POINT OF CARE 247 MG/DL (70-110)
[2020-03-16 08:00] VITALS: BP 119/73
[2020-03-16] MEDS: CHOLECALCIFEROL (VIT D3) 1,000 UNITS [25 MCG] TABLET PO SCH (08:12)
[2020-03-16] MEDS: AMINO ACIDS/PROTEIN HYDROLYS 30 ML TUBE PO SCH (08:12)
[2020-03-16] MEDS: LevETIRAcetam 500 MG in DEXTROSE 5%-WATER 100 ML IV SCH ×2 (08:12→20:38)
[2020-03-16] MEDS: APIXABAN 5 MG TABLET PO SCH ×2 (08:13→20:39)
[2020-03-16] MEDS: FAMOTIDINE 10 MG/ML 2 ML VIAL IVP SCH ×2 (08:13→20:39)
[2020-03-16] MEDS: ASCORBIC ACID 500 MG TABLET PO SCH ×2 (08:13→20:39)
[2020-03-16] MEDS: INSULIN GLARGINE,HUM.REC.ANLOG 100 UNITS/ML SQ SCH ×2 (08:14→20:41)
[2020-03-16] MEDS: MULTIVITAMINS, THERAPEUTIC 15 ML UDCUP PO SCH (09:00)
[2020-03-16 12:00] VITALS: BP 127/74
[2020-03-16 16:00] VITALS: BP 127/86
[2020-03-16 20:00] VITALS: BP 136/80
[2020-03-17] VITALS: BP 129/85
[2020-03-17 00:34] LABS: GLUCOSE,POINT OF CARE 291 MG/DL (70-110)
[2020-03-17 04:00] VITALS: BP 124/64
[2020-03-17] MEDS: AMPICILLIN SODIUM/SULBACTAM NA 3 GM in SODIUM CHLORIDE 0.9% 100 ML IV SCH ×4 (04:18→22:16)
[2020-03-17 05:12] LABS: GLUCOSE,POINT OF CARE 309 MG/DL (70-110)
[2020-03-17 05:12] LABS: GLUCOSE,POINT OF CARE 272 MG/DL (70-110)
[2020-03-17 05:12] LABS: GLUCOSE,POINT OF CARE 265 MG/DL (70-110)
[2020-03-17] MEDS: INSULIN LISPRO 100 UNITS/ML SQ PRN ×4 (06:18→23:54)
[2020-03-17 08:00] VITALS: BP 114/88
[2020-03-17 08:34] LABS: GLUCOSE,POINT OF CARE 265 MG/DL (70-110)
[2020-03-17] MEDS: APIXABAN 5 MG TABLET PO SCH ×2 (08:35→21:00)
[2020-03-17] MEDS: LevETIRAcetam 500 MG in DEXTROSE 5%-WATER 100 ML IV SCH ×2 (08:47→20:55)
[2020-03-17] MEDS: FAMOTIDINE 10 MG/ML 2 ML VIAL IVP SCH ×2 (08:47→20:55)
[2020-03-17] MEDS: AMINO ACIDS/PROTEIN HYDROLYS 30 ML TUBE PO SCH (08:47)
[2020-03-17] MEDS: MULTIVITAMINS, THERAPEUTIC 15 ML UDCUP PO SCH (08:48)
[2020-03-17] MEDS: CHOLECALCIFEROL (VIT D3) 1,000 UNITS [25 MCG] TABLET PO SCH (08:48)
[2020-03-17] MEDS: ASCORBIC ACID 500 MG TABLET PO SCH ×2 (08:48→20:55)
[2020-03-17] MEDS: INSULIN GLARGINE,HUM.REC.ANLOG 100 UNITS/ML SQ SCH ×2 (08:49→20:57)
[2020-03-17 08:57] LABS: BASOPHILS % (AUTO) 1.1 % (0.0-2.0); EOSINOPHILS % (AUTO) 5.1 % (1.0-6.0); HEMATOCRIT 33.9 % (41-53); HEMOGLOBIN 11.2 g/dL (13.5-17.5); LYMPHOCYTES # (AUTO) 1.1 K/uL (1.0-4.8); LYMPHOCYTES % (AUTO) 24.3 % (22.0-44.0); MEAN CORPUSCULAR HEMOGLOBIN 29.7 pg (26.0-34.0); MEAN CORPUSCULAR HGB CONC 32.9 G/dL (31.0-37.0); MEAN CORPUSCULAR VOLUME 90 fL (80-100); MONOCYTES # (AUTO) 0.4 K/uL (0.1-1.0); MONOCYTES % (AUTO) 9.7 % (2.0-9.0); NEUTROPHILS # (AUTO) 2.7 K/uL (1.8-7.7); NEUTROPHILS % (AUTO) 59.8 % (40.0-70.0); PLATELET COUNT (AUTO) 223 K/uL (150-450); RED BLOOD CELL COUNT(AUTO) 3.77 MIL/uL (4.50-5.90); RED CELL DISTRIBUTION WIDTH 17.7 % (11.5-14.5)
[2020-03-17 09:11] LABS: ANION GAP 6 mmol/L (8-16); CARBON DIOXIDE 30 mmol/L (22-29); CHLORIDE 101 mmol/L (98-107); CREATININE 1.05 mg/dL (0.60-1.30); GLUCOSE,RANDOM 310 mg/dL (70-110); POTASSIUM 3.6 mmol/L (3.5-5.1); SODIUM SERUM 137 mmol/L (136-145); UREA NITROGEN, BLOOD 28 mg/dL (7-18)
[2020-03-17 09:12] LABS: CALCIUM, TOTAL 8.7 mg/dL (8.8-10.5); GLOMERULAR FILTR. RATE CALC > 60 mL/min (>60); PHOSPHORUS 2.9 mg/dL (2.5-4.9)
[2020-03-17 12:00] VITALS: BP 137/80
[2020-03-17 12:14] LABS: COVID AG,FIA SOURCE NASOPHARYNGEAL
[2020-03-17 12:38] LABS: GLUCOSE,POINT OF CARE 336 MG/DL (70-110)
[2020-03-17 16:00] VITALS: BP 131/81
[2020-03-17 18:15] LABS: GLUCOSE,POINT OF CARE 286 MG/DL (70-110)
[2020-03-17 20:00] VITALS: BP 134/74
[2020-03-18] VITALS: BP 131/85
[2020-03-18 02:27] LABS: GLUCOSE,POINT OF CARE 287 MG/DL (70-110)
[2020-03-18] MEDS: AMPICILLIN SODIUM/SULBACTAM NA 3 GM in SODIUM CHLORIDE 0.9% 100 ML IV SCH ×4 (03:36→21:58)
[2020-03-18 04:00] VITALS: BP 104/55
[2020-03-18] MEDS: INSULIN LISPRO 100 UNITS/ML SQ PRN ×4 (06:09→23:38)
[2020-03-18 06:20] LABS: BASOPHILS % (AUTO) 2.2 % (0.0-2.0); EOSINOPHILS % (AUTO) 3.8 % (1.0-6.0); HEMATOCRIT 33.3 % (41-53); HEMOGLOBIN 10.8 g/dL (13.5-17.5); LYMPHOCYTES # (AUTO) 1.4 K/uL (1.0-4.8); LYMPHOCYTES % (AUTO) 20.3 % (22.0-44.0); MEAN CORPUSCULAR HEMOGLOBIN 29.4 pg (26.0-34.0); MEAN CORPUSCULAR HGB CONC 32.3 G/dL (31.0-37.0); MEAN CORPUSCULAR VOLUME 91 fL (80-100); MONOCYTES # (AUTO) 0.5 K/uL (0.1-1.0); MONOCYTES % (AUTO) 7.9 % (2.0-9.0); NEUTROPHILS # (AUTO) 4.4 K/uL (1.8-7.7); NEUTROPHILS % (AUTO) 65.8 % (40.0-70.0); PLATELET COUNT (AUTO) 231 K/uL (150-450); RED BLOOD CELL COUNT(AUTO) 3.66 MIL/uL (4.50-5.90)
[2020-03-18 06:38] LABS: ANION GAP 4 mmol/L (8-16); CALCIUM, TOTAL 8.4 mg/dL (8.8-10.5); CARBON DIOXIDE 29 mmol/L (22-29); CHLORIDE 102 mmol/L (98-107); CREATININE 0.93 mg/dL (0.60-1.30); GLOMERULAR FILTR. RATE CALC > 60 mL/min (>60); GLUCOSE,RANDOM 315 mg/dL (70-110); POTASSIUM 4.2 mmol/L (3.5-5.1); SODIUM SERUM 135 mmol/L (136-145); UREA NITROGEN, BLOOD 29 mg/dL (7-18)
[2020-03-18 06:43] LABS: GLUCOSE,POINT OF CARE 287 MG/DL (70-110)
[2020-03-18] MEDS: APIXABAN 5 MG TABLET PO SCH (07:46)
[2020-03-18] MEDS: LevETIRAcetam 500 MG in DEXTROSE 5%-WATER 100 ML IV SCH ×2 (07:52→20:09)
[2020-03-18] MEDS: CHOLECALCIFEROL (VIT D3) 1,000 UNITS [25 MCG] TABLET PO SCH (07:53)
[2020-03-18] MEDS: MULTIVITAMINS, THERAPEUTIC 15 ML UDCUP PO SCH (07:53)
[2020-03-18] MEDS: FAMOTIDINE 10 MG/ML 2 ML VIAL IVP SCH ×2 (07:53→20:08)
[2020-03-18] MEDS: ASCORBIC ACID 500 MG TABLET PO SCH ×2 (07:53→20:08)
[2020-03-18 08:00] VITALS: BP 112/56
[2020-03-18] MEDS: INSULIN GLARGINE,HUM.REC.ANLOG 100 UNITS/ML SQ SCH ×2 (09:19→21:56)
[2020-03-18 12:00] VITALS: BP 107/58
[2020-03-18 13:35] LABS: GLUCOSE,POINT OF CARE 294 MG/DL (70-110)
[2020-03-18 16:00] VITALS: BP 128/61
[2020-03-18 20:00] VITALS: BP 111/79
[2020-03-18 20:25] LABS: GLUCOSE,POINT OF CARE 327 MG/DL (70-110)
[2020-03-19] VITALS: BP 124/73
[2020-03-19] MEDS: AMPICILLIN SODIUM/SULBACTAM NA 3 GM in SODIUM CHLORIDE 0.9% 100 ML IV SCH ×4 (03:45→22:31)
[2020-03-19 04:00] VITALS: BP 110/61
[2020-03-19 04:09] LABS: GLUCOSE,POINT OF CARE 284 MG/DL (70-110)
[2020-03-19] MEDS: INSULIN LISPRO 100 UNITS/ML SQ PRN ×3 (05:41→18:28)
[2020-03-19 06:23] LABS: BASOPHILS % (AUTO) 0.6 % (0.0-2.0); EOSINOPHILS % (AUTO) 3.6 % (1.0-6.0); HEMATOCRIT 30.1 % (41-53); HEMOGLOBIN 9.9 g/dL (13.5-17.5); LYMPHOCYTES # (AUTO) 1.5 K/uL (1.0-4.8); LYMPHOCYTES % (AUTO) 19.2 % (22.0-44.0); MEAN CORPUSCULAR HEMOGLOBIN 29.7 pg (26.0-34.0); MEAN CORPUSCULAR HGB CONC 32.8 G/dL (31.0-37.0); MEAN CORPUSCULAR VOLUME 90 fL (80-100); MONOCYTES # (AUTO) 0.6 K/uL (0.1-1.0); MONOCYTES % (AUTO) 8.3 % (2.0-9.0); NEUTROPHILS # (AUTO) 5.3 K/uL (1.8-7.7); NEUTROPHILS % (AUTO) 68.3 % (40.0-70.0); PLATELET COUNT (AUTO) 221 K/uL (150-450); RED BLOOD CELL COUNT(AUTO) 3.33 MIL/uL (4.50-5.90); RED CELL DISTRIBUTION WIDTH 17.5 % (11.5-14.5)
[2020-03-19 06:41] LABS: GLUCOSE,POINT OF CARE 288 MG/DL (70-110)
[2020-03-19 06:56] LABS: ALANINE AMINOTRANSFERASE 51 U/L (12-78); ALBUMIN 1.9 g/dL (3.4-5.0); ALKALINE PHOSPHATASE 262 U/L (46-116); ASPARTATE AMINOTRANSFERASE 30 U/L (15-37); BILIRUBIN,TOTAL 0.6 mg/dL (0.1-1.0); CALCIUM, TOTAL 8.6 mg/dL (8.8-10.5); CHLORIDE 101 mmol/L (98-107); GLOMERULAR FILTR. RATE CALC > 60 mL/min (>60); GLUCOSE,RANDOM 319 mg/dL (70-110); POTASSIUM 3.9 mmol/L (3.5-5.1); SODIUM SERUM 135 mmol/L (136-145); TOTAL PROTEIN, SERUM 6.8 g/dL (6.4-8.2); UREA NITROGEN, BLOOD 28 mg/dL (7-18)
[2020-03-19 07:05] LABS: ANION GAP 6 mmol/L (8-16); CARBON DIOXIDE 28 mmol/L (22-29)
[2020-03-19 08:00] VITALS: BP 109/68
[2020-03-19] MEDS: LevETIRAcetam 500 MG in DEXTROSE 5%-WATER 100 ML IV SCH ×2 (08:55→20:40)
[2020-03-19] MEDS: MULTIVITAMINS, THERAPEUTIC 15 ML UDCUP PO SCH (08:55)
[2020-03-19] MEDS: ASCORBIC ACID 500 MG TABLET PO SCH ×2 (08:56→20:39)
[2020-03-19] MEDS: CHOLECALCIFEROL (VIT D3) 1,000 UNITS [25 MCG] TABLET PO SCH (08:56)
[2020-03-19] MEDS: FAMOTIDINE 10 MG/ML 2 ML VIAL IVP SCH ×2 (08:56→20:39)
[2020-03-19] MEDS: INSULIN GLARGINE,HUM.REC.ANLOG 100 UNITS/ML SQ SCH ×2 (08:58→21:08)
[2020-03-19 12:00] VITALS: BP 131/87
[2020-03-19 12:07] LABS: GLUCOSE,POINT OF CARE 336 MG/DL (70-110)
[2020-03-19 16:00] VITALS: BP 126/65
[2020-03-19 19:22] LABS: GLUCOSE,POINT OF CARE 264 MG/DL (70-110)
[2020-03-19 20:00] VITALS: BP 124/72
[2020-03-19 22:44] LABS: GLUCOSE,POINT OF CARE 194 MG/DL (70-110)
[2020-03-20] VITALS: BP 130/74
[2020-03-20] MEDS: INSULIN LISPRO 100 UNITS/ML SQ PRN (00:21)
[2020-03-20 00:34] LABS: GLUCOSE,POINT OF CARE 157 MG/DL (70-110)
[2020-03-20] MEDS: AMPICILLIN SODIUM/SULBACTAM NA 3 GM in SODIUM CHLORIDE 0.9% 100 ML IV SCH ×4 (03:30→22:59)
[2020-03-20 04:00] VITALS: BP 136/87
[2020-03-20 06:09] LABS: GLUCOSE,POINT OF CARE 98 MG/DL (70-110)
[2020-03-20 06:46] LABS: ANION GAP 3 mmol/L (8-16); CALCIUM, TOTAL 8.7 mg/dL (8.8-10.5); CARBON DIOXIDE 32 mmol/L (22-29); CHLORIDE 104 mmol/L (98-107); GLUCOSE,RANDOM 103 mg/dL (70-110); PHOSPHORUS 3.2 mg/dL (2.5-4.9); POTASSIUM 3.6 mmol/L (3.5-5.1); SODIUM SERUM 139 mmol/L (136-145); UREA NITROGEN, BLOOD 25 mg/dL (7-18)
[2020-03-20 07:08] LABS: CREATININE 0.83 mg/dL (0.60-1.30); GLOMERULAR FILTR. RATE CALC > 60 mL/min (>60)
[2020-03-20] MEDS ORDERED: SODIUM CHLORIDE 0.9% 250 ML IV ONE (07:09)
[2020-03-20] MEDS ORDERED: MAGNESIUM SULFATE 1 GM in DEXTROSE 5%-WATER 50 ML IV ONE (07:45)
[2020-03-20 08:00] VITALS: BP 128/77
[2020-03-20] MEDS: LevETIRAcetam 500 MG in DEXTROSE 5%-WATER 100 ML IV SCH ×2 (08:47→20:40)
[2020-03-20] MEDS: MULTIVITAMINS, THERAPEUTIC 15 ML UDCUP PO SCH (09:00)
[2020-03-20] MEDS: INSULIN GLARGINE,HUM.REC.ANLOG 100 UNITS/ML SQ SCH ×2 (09:00→21:00)
[2020-03-20] MEDS: CHOLECALCIFEROL (VIT D3) 1,000 UNITS [25 MCG] TABLET PO SCH (09:00)
[2020-03-20] MEDS: ASCORBIC ACID 500 MG TABLET PO SCH ×2 (09:00→20:20)
[2020-03-20] MEDS: FAMOTIDINE 10 MG/ML 2 ML VIAL IVP SCH ×2 (09:26→20:40)
[2020-03-20 12:00] VITALS: BP 133/78
[2020-03-20] MEDS: PROPOFOL 1000 MG/ISO-OSM 100 ML IV PRN ×3 (12:51→23:25)
[2020-03-20] MEDS ORDERED: ROCURONIUM BROMIDE 10 MG/ML 5 ML VIAL IVP ONE (14:30)
[2020-03-20 14:35] LABS: GLUCOSE,POINT OF CARE 101 MG/DL (70-110)
[2020-03-20 16:00] VITALS: BP 133/78
[2020-03-20] MEDS ORDERED: MORPHINE SULFATE 2 MG/ML SYRINGE IVP PRN (16:15)
[2020-03-20 20:00] VITALS: BP 131/84
[2020-03-20 21:19] LABS: GLUCOSE,POINT OF CARE 150 MG/DL (70-110)
[2020-03-20 21:19] LABS: GLUCOSE,POINT OF CARE 126 MG/DL (70-110)
[2020-03-21] VITALS: BP 129/86
[2020-03-21] MEDS: INSULIN LISPRO 100 UNITS/ML SQ PRN ×6 (00:05→23:58)
[2020-03-21 02:53] LABS: GLUCOSE,POINT OF CARE 151 MG/DL (70-110)
[2020-03-21 04:00] VITALS: BP 142/86
[2020-03-21] MEDS: AMPICILLIN SODIUM/SULBACTAM NA 3 GM in SODIUM CHLORIDE 0.9% 100 ML IV SCH ×4 (04:26→22:17)
[2020-03-21] MEDS: PROPOFOL 1000 MG/ISO-OSM 100 ML IV PRN ×4 (05:17→22:18)
[2020-03-21 05:56] LABS: GLUCOSE,POINT OF CARE 148 MG/DL (70-110)
[2020-03-21 08:00] VITALS: BP 142/90
[2020-03-21] MEDS: MULTIVITAMINS, THERAPEUTIC 15 ML UDCUP PO SCH (08:11)
[2020-03-21] MEDS: CHOLECALCIFEROL (VIT D3) 1,000 UNITS [25 MCG] TABLET PO SCH (08:12)
[2020-03-21] MEDS: ASCORBIC ACID 500 MG TABLET PO SCH ×2 (08:12→21:00)
[2020-03-21 08:13] LABS: BASOPHILS % (AUTO) 0.7 % (0.0-2.0); EOSINOPHILS % (AUTO) 3.8 % (1.0-6.0); HEMATOCRIT 31.9 % (41-53); HEMOGLOBIN 10.4 g/dL (13.5-17.5); LYMPHOCYTES # (AUTO) 1.6 K/uL (1.0-4.8); LYMPHOCYTES % (AUTO) 20.2 % (22.0-44.0); MEAN CORPUSCULAR HEMOGLOBIN 29.4 pg (26.0-34.0); MEAN CORPUSCULAR HGB CONC 32.6 G/dL (31.0-37.0); MEAN CORPUSCULAR VOLUME 90 fL (80-100); MONOCYTES # (AUTO) 0.6 K/uL (0.1-1.0); MONOCYTES % (AUTO) 7.2 % (2.0-9.0); NEUTROPHILS # (AUTO) 5.5 K/uL (1.8-7.7); NEUTROPHILS % (AUTO) 68.1 % (40.0-70.0); PLATELET COUNT (AUTO) 197 K/uL (150-450); RED BLOOD CELL COUNT(AUTO) 3.53 MIL/uL (4.50-5.90); RED CELL DISTRIBUTION WIDTH 18.3 % (11.5-14.5)
[2020-03-21] MEDS: FAMOTIDINE 10 MG/ML 2 ML VIAL IVP SCH ×2 (08:17→19:52)
[2020-03-21] MEDS: LevETIRAcetam 500 MG in DEXTROSE 5%-WATER 100 ML IV SCH ×2 (08:17→19:52)
[2020-03-21 08:21] LABS: ANION GAP 9 mmol/L (8-16); CALCIUM, TOTAL 8.4 mg/dL (8.8-10.5); CARBON DIOXIDE 26 mmol/L (22-29); CHLORIDE 100 mmol/L (98-107); CREATININE 0.74 mg/dL (0.60-1.30); GLOMERULAR FILTR. RATE CALC > 60 mL/min (>60); GLUCOSE,RANDOM 149 mg/dL (70-110); POTASSIUM 3.8 mmol/L (3.5-5.1); SODIUM SERUM 135 mmol/L (136-145); UREA NITROGEN, BLOOD 21 mg/dL (7-18)
[2020-03-21] MEDS: INSULIN GLARGINE,HUM.REC.ANLOG 100 UNITS/ML SQ SCH ×2 (09:00→21:00)
[2020-03-21] MEDS ORDERED: SODIUM CHLORIDE 0.9% 1,000 ML ONE (10:01)
[2020-03-21 12:00] VITALS: BP 117/72
[2020-03-21] MEDS ORDERED: OxyCODONE HCL/ACETAMINOPHEN 5-325 MG TABLET PO PRN (12:00)
[2020-03-21 12:27] LABS: GLUCOSE,POINT OF CARE 140 MG/DL (70-110)
[2020-03-21] MEDS ORDERED: MIDAZOLAM HCL 2 MG/2 ML VIAL IVP ONE (15:30)
[2020-03-21] MEDS ORDERED: VECURONIUM BROMIDE 10 MG/VIAL IVP ONE (15:30)
[2020-03-21] MEDS ORDERED: CeFAZolin 1 GM/DEXTROSE 50 ML IV ONE (15:45)
[2020-03-21 16:00] VITALS: BP 122/79
[2020-03-21 17:52] LABS: GLUCOSE,POINT OF CARE 162 MG/DL (70-110)
[2020-03-21 20:00] VITALS: BP 137/65
[2020-03-22] VITALS: BP 97/69
[2020-03-22] MEDS: AMPICILLIN SODIUM/SULBACTAM NA 3 GM in SODIUM CHLORIDE 0.9% 100 ML IV SCH ×4 (03:26→21:40)
[2020-03-22 04:00] VITALS: BP 113/74
[2020-03-22] MEDS: PROPOFOL 1000 MG/ISO-OSM 100 ML IV PRN ×4 (05:12→23:29)
[2020-03-22 05:48] LABS: GLUCOSE,POINT OF CARE 163 MG/DL (70-110)
[2020-03-22] MEDS: INSULIN LISPRO 100 UNITS/ML SQ PRN ×4 (05:50→23:37)
[2020-03-22] MEDS ORDERED: DEXTROSE 5%-WATER 250 ML IV ONE (06:42)
[2020-03-22 07:11] LABS: ALANINE AMINOTRANSFERASE 54 U/L (12-78); ALBUMIN 1.9 g/dL (3.4-5.0); ALKALINE PHOSPHATASE 305 U/L (46-116); ANION GAP 14 mmol/L (8-16); ASPARTATE AMINOTRANSFERASE 58 U/L (15-37); CALCIUM, TOTAL 8.3 mg/dL (8.8-10.5); CARBON DIOXIDE 24 mmol/L (22-29); CHLORIDE 103 mmol/L (98-107); CREATININE 0.86 mg/dL (0.60-1.30); GLOMERULAR FILTR. RATE CALC > 60 mL/min (>60); GLUCOSE,RANDOM 155 mg/dL (70-110); SODIUM SERUM 141 mmol/L (136-145); TOTAL PROTEIN, SERUM 6.6 g/dL (6.4-8.2); UREA NITROGEN, BLOOD 15 mg/dL (7-18)
[2020-03-22 07:21] LABS: GLUCOSE,POINT OF CARE 151 MG/DL (70-110)
[2020-03-22 08:00] VITALS: BP 117/71
[2020-03-22] MEDS: AMINO ACIDS/PROTEIN HYDROLYS 30 ML TUBE PO SCH (08:00)
[2020-03-22] MEDS: CHOLECALCIFEROL (VIT D3) 1,000 UNITS [25 MCG] TABLET PO SCH (08:03)
[2020-03-22] MEDS: MULTIVITAMINS, THERAPEUTIC 15 ML UDCUP PO SCH (08:03)
[2020-03-22] MEDS: ASCORBIC ACID 500 MG TABLET PO SCH ×2 (08:03→21:00)
[2020-03-22 08:07] LABS: BILIRUBIN,TOTAL 0.8 mg/dL (0.1-1.0)
[2020-03-22] MEDS: INSULIN GLARGINE,HUM.REC.ANLOG 100 UNITS/ML SQ SCH ×2 (08:07→20:21)
[2020-03-22] MEDS: LevETIRAcetam 500 MG in DEXTROSE 5%-WATER 100 ML IV SCH ×2 (08:11→20:13)
[2020-03-22] MEDS: FAMOTIDINE 10 MG/ML 2 ML VIAL IVP SCH ×2 (08:11→20:12)
[2020-03-22 10:27] LABS: BASOPHILS % (AUTO) 1.3 % (0.0-2.0); EOSINOPHILS % (AUTO) 3.4 % (1.0-6.0); HEMATOCRIT 29.6 % (41-53); HEMOGLOBIN 9.8 g/dL (13.5-17.5); LYMPHOCYTES # (AUTO) 1.5 K/uL (1.0-4.8); LYMPHOCYTES % (AUTO) 16.4 % (22.0-44.0); MEAN CORPUSCULAR HEMOGLOBIN 29.8 pg (26.0-34.0); MEAN CORPUSCULAR HGB CONC 33.1 G/dL (31.0-37.0); MEAN CORPUSCULAR VOLUME 90 fL (80-100); MONOCYTES # (AUTO) 0.6 K/uL (0.1-1.0); MONOCYTES % (AUTO) 7.3 % (2.0-9.0); NEUTROPHILS # (AUTO) 6.4 K/uL (1.8-7.7); NEUTROPHILS % (AUTO) 71.6 % (40.0-70.0); PLATELET COUNT (AUTO) 177 K/uL (150-450); RED BLOOD CELL COUNT(AUTO) 3.29 MIL/uL (4.50-5.90); RED CELL DISTRIBUTION WIDTH 17.8 % (11.5-14.5)
[2020-03-22 10:40] LABS: INR 1.1 (0.9-1.1); PROTHROMBIN TIME 11.4 SEC (9.4-11.6)
[2020-03-22 12:00] VITALS: BP 116/73
[2020-03-22 13:59] LABS: GLUCOSE,POINT OF CARE 149 MG/DL (70-110)
[2020-03-22 16:00] VITALS: BP 115/54
[2020-03-22 18:50] LABS: GLUCOSE,POINT OF CARE 154 MG/DL (70-110)
[2020-03-22 20:00] VITALS: BP 121/73
[2020-03-23] VITALS: BP 118/69
[2020-03-23] MEDS: AMPICILLIN SODIUM/SULBACTAM NA 3 GM in SODIUM CHLORIDE 0.9% 100 ML IV SCH ×4 (03:28→21:06)
[2020-03-23] MEDS ORDERED: DEXTROSE 5%-WATER 250 ML IV ONE (03:31)
[2020-03-23 04:00] VITALS: BP 137/77
[2020-03-23 06:27] LABS: BASOPHILS % (AUTO) 0.7 % (0.0-2.0); EOSINOPHILS % (AUTO) 4.7 % (1.0-6.0); HEMATOCRIT 32.1 % (41-53); HEMOGLOBIN 10.5 g/dL (13.5-17.5); LYMPHOCYTES # (AUTO) 1.7 K/uL (1.0-4.8); LYMPHOCYTES % (AUTO) 24.8 % (22.0-44.0); MEAN CORPUSCULAR HEMOGLOBIN 29.5 pg (26.0-34.0); MEAN CORPUSCULAR HGB CONC 32.7 G/dL (31.0-37.0); MEAN CORPUSCULAR VOLUME 90 fL (80-100); MONOCYTES # (AUTO) 0.6 K/uL (0.1-1.0); MONOCYTES % (AUTO) 9.3 % (2.0-9.0); NEUTROPHILS # (AUTO) 4.2 K/uL (1.8-7.7); NEUTROPHILS % (AUTO) 60.5 % (40.0-70.0); PLATELET COUNT (AUTO) 171 K/uL (150-450); RED BLOOD CELL COUNT(AUTO) 3.57 MIL/uL (4.50-5.90)
[2020-03-23 06:53] LABS: ALANINE AMINOTRANSFERASE 45 U/L (12-78); ALBUMIN 1.9 g/dL (3.4-5.0); ALKALINE PHOSPHATASE 317 U/L (46-116); ANION GAP 8 mmol/L (8-16); ASPARTATE AMINOTRANSFERASE 44 U/L (15-37); BILIRUBIN,TOTAL 0.9 mg/dL (0.1-1.0); CALCIUM, TOTAL 8.3 mg/dL (8.8-10.5); CARBON DIOXIDE 26 mmol/L (22-29); CHLORIDE 103 mmol/L (98-107); CREATININE 0.79 mg/dL (0.60-1.30); GLOMERULAR FILTR. RATE CALC > 60 mL/min (>60); GLUCOSE,RANDOM 116 mg/dL (70-110); POTASSIUM 3.4 mmol/L (3.5-5.1); SODIUM SERUM 137 mmol/L (136-145); UREA NITROGEN, BLOOD 13 mg/dL (7-18)
[2020-03-23 08:00] VITALS: BP 123/75
[2020-03-23] MEDS: AMINO ACIDS/PROTEIN HYDROLYS 30 ML TUBE PO SCH (08:00)
[2020-03-23] MEDS: ASCORBIC ACID 500 MG TABLET PO SCH ×2 (09:00→20:02)
[2020-03-23] MEDS: CHOLECALCIFEROL (VIT D3) 1,000 UNITS [25 MCG] TABLET PO SCH (09:00)
[2020-03-23] MEDS: MULTIVITAMINS, THERAPEUTIC 15 ML UDCUP PO SCH (09:00)
[2020-03-23] MEDS: LevETIRAcetam 500 MG in DEXTROSE 5%-WATER 100 ML IV SCH ×2 (09:11→19:52)
[2020-03-23] MEDS: FAMOTIDINE 10 MG/ML 2 ML VIAL IVP SCH ×2 (09:15→20:02)
[2020-03-23 11:11] LABS: GLUCOSE,POINT OF CARE 126 MG/DL (70-110)
[2020-03-23 11:11] LABS: GLUCOSE,POINT OF CARE 120 MG/DL (70-110)
[2020-03-23] MEDS: INSULIN GLARGINE,HUM.REC.ANLOG 100 UNITS/ML SQ SCH ×2 (11:46→20:04)
[2020-03-23 12:00] VITALS: BP 116/60
[2020-03-23] MEDS ORDERED: MORPHINE SULFATE 4 MG/ML SYRINGE IVP ONE (12:00)
[2020-03-23] MEDS ORDERED: ROCURONIUM BROMIDE 10 MG/ML 5 ML VIAL IVP ONE (12:00)
[2020-03-23] MEDS ORDERED: PROPOFOL 1% 20 ML VIAL IVP ONE (12:00)
[2020-03-23] MEDS ORDERED: MIDAZOLAM HCL 2 MG/2 ML VIAL IVP ONE (12:00)
[2020-03-23] MEDS ORDERED: FentaNYL CITRATE PF 100 MCG/2 ML VIAL IVP ONE (12:00)
[2020-03-23 14:44] LABS: GLUCOSE,POINT OF CARE 150 MG/DL (70-110)
[2020-03-23] MEDS ORDERED: BUPIVACAINE 0.25%/EPI 1:200,000/PF 10 ML VIAL ONE (14:50)
[2020-03-23 16:00] VITALS: BP 108/55
[2020-03-23] MEDS: POTASSIUM CHL 10 MEQ/WATER 50 ML IV PRN ×3 (19:51→21:06)
[2020-03-23 20:00] VITALS: BP 110/60
[2020-03-23 22:18] LABS: GLUCOSE,POINT OF CARE 125 MG/DL (70-110)
[2020-03-24] VITALS: BP 102/52
[2020-03-24] MEDS: INSULIN LISPRO 100 UNITS/ML SQ PRN ×3 (00:16→14:59)
[2020-03-24 04:00] VITALS: BP 115/65
[2020-03-24] MEDS: AMPICILLIN SODIUM/SULBACTAM NA 3 GM in SODIUM CHLORIDE 0.9% 100 ML IV SCH ×4 (04:44→20:54)
[2020-03-24] MEDS ORDERED: SODIUM CHLORIDE 0.9% 250 ML IV ONE (06:45)
[2020-03-24 06:47] LABS: GLUCOSE,POINT OF CARE 145 MG/DL (70-110)
[2020-03-24 06:48] LABS: GLUCOSE,POINT OF CARE 192 MG/DL (70-110)
[2020-03-24 08:00] VITALS: BP 120/75
[2020-03-24] MEDS: MULTIVITAMINS, THERAPEUTIC 15 ML UDCUP PO SCH (09:00)
[2020-03-24] MEDS: AMINO ACIDS/PROTEIN HYDROLYS 30 ML TUBE PO SCH (09:03)
[2020-03-24] MEDS: LevETIRAcetam 500 MG in DEXTROSE 5%-WATER 100 ML IV SCH ×2 (09:04→20:05)
[2020-03-24] MEDS: FAMOTIDINE 10 MG/ML 2 ML VIAL IVP SCH ×2 (09:41→20:53)
[2020-03-24] MEDS: ASCORBIC ACID 500 MG TABLET PO SCH ×2 (09:42→20:53)
[2020-03-24] MEDS: CHOLECALCIFEROL (VIT D3) 1,000 UNITS [25 MCG] TABLET PO SCH (09:42)
[2020-03-24] MEDS: INSULIN GLARGINE,HUM.REC.ANLOG 100 UNITS/ML SQ SCH ×2 (09:45→20:40)
[2020-03-24 12:00] VITALS: BP 138/81
[2020-03-24 14:56] LABS: GLUCOSE,POINT OF CARE 289 MG/DL (70-110)
[2020-03-24 16:00] VITALS: BP 123/67
[2020-03-24] MEDS: PROPOFOL 1000 MG/ISO-OSM 100 ML IV PRN (17:12)
[2020-03-24 20:00] VITALS: BP 117/75
[2020-03-25] VITALS: BP 129/82
[2020-03-25] MEDS: INSULIN LISPRO 100 UNITS/ML SQ PRN ×4 (00:08→18:57)
[2020-03-25] MEDS: AMPICILLIN SODIUM/SULBACTAM NA 3 GM in SODIUM CHLORIDE 0.9% 100 ML IV SCH ×4 (03:19→23:48)
[2020-03-25 04:00] VITALS: BP 129/82
[2020-03-25] MEDS: ACETAMINOPHEN 325 MG TABLET PO PRN ×2 (05:21→15:55)
[2020-03-25 06:01] LABS: GLUCOSE,POINT OF CARE 228 MG/DL (70-110)
[2020-03-25 06:01] LABS: GLUCOSE,POINT OF CARE 246 MG/DL (70-110)
[2020-03-25 06:01] LABS: GLUCOSE,POINT OF CARE 251 MG/DL (70-110)
[2020-03-25 06:30] LABS: GLUCOSE,POINT OF CARE 286 MG/DL (70-110)
[2020-03-25 08:00] VITALS: BP 121/75
[2020-03-25] MEDS: AMINO ACIDS/PROTEIN HYDROLYS 30 ML TUBE PO SCH (08:00)
[2020-03-25 09:39] LABS: BASOPHILS % (AUTO) 0.7 % (0.0-2.0); EOSINOPHILS % (AUTO) 4.3 % (1.0-6.0); HEMATOCRIT 29.4 % (41-53); HEMOGLOBIN 9.9 g/dL (13.5-17.5); LYMPHOCYTES # (AUTO) 1.7 K/uL (1.0-4.8); LYMPHOCYTES % (AUTO) 18.7 % (22.0-44.0); MEAN CORPUSCULAR HEMOGLOBIN 30.6 pg (26.0-34.0); MEAN CORPUSCULAR HGB CONC 33.6 G/dL (31.0-37.0); MEAN CORPUSCULAR VOLUME 91 fL (80-100); MONOCYTES # (AUTO) 0.7 K/uL (0.1-1.0); MONOCYTES % (AUTO) 8.1 % (2.0-9.0); NEUTROPHILS % (AUTO) 68.2 % (40.0-70.0); PLATELET COUNT (AUTO) 167 K/uL (150-450); RED BLOOD CELL COUNT(AUTO) 3.24 MIL/uL (4.50-5.90); RED CELL DISTRIBUTION WIDTH 17.9 % (11.5-14.5)
[2020-03-25 09:55] LABS: ALANINE AMINOTRANSFERASE 32 U/L (12-78); ALBUMIN 1.7 g/dL (3.4-5.0); ALKALINE PHOSPHATASE 324 U/L (46-116); ANION GAP 9 mmol/L (8-16); ASPARTATE AMINOTRANSFERASE 29 U/L (15-37); BILIRUBIN,TOTAL 0.7 mg/dL (0.1-1.0); C-REACTIVE PROTEIN QUANT 11.72 mg/dL (0.00-0.30); CALCIUM, TOTAL 8.1 mg/dL (8.8-10.5); CARBON DIOXIDE 26 mmol/L (22-29); CHLORIDE 101 mmol/L (98-107); CREATININE 0.86 mg/dL (0.60-1.30); GLOMERULAR FILTR. RATE CALC > 60 mL/min (>60); GLUCOSE,RANDOM 300 mg/dL (70-110); POTASSIUM 3.7 mmol/L (3.5-5.1); SODIUM SERUM 136 mmol/L (136-145); UREA NITROGEN, BLOOD 22 mg/dL (7-18)
[2020-03-25] MEDS: LevETIRAcetam 500 MG in DEXTROSE 5%-WATER 100 ML IV SCH ×2 (10:28→20:24)
[2020-03-25] MEDS: MULTIVITAMINS, THERAPEUTIC 15 ML UDCUP PO SCH (10:28)
[2020-03-25] MEDS: FAMOTIDINE 10 MG/ML 2 ML VIAL IVP SCH ×2 (10:30→20:24)
[2020-03-25] MEDS: ASCORBIC ACID 500 MG TABLET PO SCH ×2 (10:32→20:25)
[2020-03-25] MEDS: CHOLECALCIFEROL (VIT D3) 1,000 UNITS [25 MCG] TABLET PO SCH (10:32)
[2020-03-25] MEDS: POTASSIUM CHL 10 MEQ/WATER 50 ML IV PRN (10:33)
[2020-03-25] MEDS: INSULIN GLARGINE,HUM.REC.ANLOG 100 UNITS/ML SQ SCH ×2 (10:51→21:17)
[2020-03-25 15:44] LABS: GLUCOSE,POINT OF CARE 273 MG/DL (70-110)
[2020-03-25 15:45] LABS: GLUCOSE,POINT OF CARE 264 MG/DL (70-110)
[2020-03-25 20:00] VITALS: BP 118/72
[2020-03-25 21:05] LABS: GLUCOSE,POINT OF CARE 171 MG/DL (70-110)
[2020-03-25 21:05] LABS: GLUCOSE,POINT OF CARE 177 MG/DL (70-110)
[2020-03-25] MEDS ORDERED: SODIUM CHLORIDE 0.9% 250 ML IV ONE (22:36)
[2020-03-26] VITALS: BP 111/57
[2020-03-26] MEDS: INSULIN LISPRO 100 UNITS/ML SQ PRN ×5 (00:37→23:41)
[2020-03-26 02:59] LABS: GLUCOSE,POINT OF CARE 213 MG/DL (70-110)
[2020-03-26 04:00] VITALS: BP 135/67
[2020-03-26] MEDS: AMPICILLIN SODIUM/SULBACTAM NA 3 GM in SODIUM CHLORIDE 0.9% 100 ML IV SCH ×3 (04:09→15:28)
[2020-03-26 06:43] LABS: GLUCOSE,POINT OF CARE 195 MG/DL (70-110)
[2020-03-26 08:00] VITALS: BP 115/58
[2020-03-26] MEDS: AMINO ACIDS/PROTEIN HYDROLYS 30 ML TUBE PO SCH (08:38)
[2020-03-26] MEDS: ASCORBIC ACID 500 MG TABLET PO SCH ×2 (08:39→20:24)
[2020-03-26] MEDS: FAMOTIDINE 10 MG/ML 2 ML VIAL IVP SCH ×2 (08:39→20:24)
[2020-03-26] MEDS: LevETIRAcetam 500 MG in DEXTROSE 5%-WATER 100 ML IV SCH ×2 (08:39→20:24)
[2020-03-26] MEDS: CHOLECALCIFEROL (VIT D3) 1,000 UNITS [25 MCG] TABLET PO SCH (08:40)
[2020-03-26] MEDS: MULTIVITAMINS, THERAPEUTIC 15 ML UDCUP PO SCH (08:40)
[2020-03-26] MEDS: INSULIN GLARGINE,HUM.REC.ANLOG 100 UNITS/ML SQ SCH ×2 (08:41→20:26)
[2020-03-26 10:21] LABS: BASOPHILS % (AUTO) 0.8 % (0.0-2.0); EOSINOPHILS % (AUTO) 5.3 % (1.0-6.0); HEMATOCRIT 28.6 % (41-53); HEMOGLOBIN 9.4 g/dL (13.5-17.5); LYMPHOCYTES # (AUTO) 1.5 K/uL (1.0-4.8); MEAN CORPUSCULAR HEMOGLOBIN 29.8 pg (26.0-34.0); MEAN CORPUSCULAR HGB CONC 32.9 G/dL (31.0-37.0); MEAN CORPUSCULAR VOLUME 91 fL (80-100); MONOCYTES # (AUTO) 0.6 K/uL (0.1-1.0); MONOCYTES % (AUTO) 7.2 % (2.0-9.0); NEUTROPHILS # (AUTO) 5.8 K/uL (1.8-7.7); NEUTROPHILS % (AUTO) 68.7 % (40.0-70.0); PLATELET COUNT (AUTO) 155 K/uL (150-450); RED BLOOD CELL COUNT(AUTO) 3.16 MIL/uL (4.50-5.90); RED CELL DISTRIBUTION WIDTH 18.4 % (11.5-14.5)
[2020-03-26 10:36] LABS: ALANINE AMINOTRANSFERASE 36 U/L (12-78); ALBUMIN 1.6 g/dL (3.4-5.0); ALKALINE PHOSPHATASE 305 U/L (46-116); ANION GAP 6 mmol/L (8-16); ASPARTATE AMINOTRANSFERASE 33 U/L (15-37); BILIRUBIN,TOTAL 0.7 mg/dL (0.1-1.0); C-REACTIVE PROTEIN QUANT 11.09 mg/dL (0.00-0.30); CALCIUM, TOTAL 8.1 mg/dL (8.8-10.5); CARBON DIOXIDE 28 mmol/L (22-29); CHLORIDE 103 mmol/L (98-107); CREATININE 0.73 mg/dL (0.60-1.30); GLOMERULAR FILTR. RATE CALC > 60 mL/min (>60); GLUCOSE,RANDOM 218 mg/dL (70-110); POTASSIUM 3.7 mmol/L (3.5-5.1); SODIUM SERUM 137 mmol/L (136-145); TOTAL PROTEIN, SERUM 6.6 g/dL (6.4-8.2); UREA NITROGEN, BLOOD 20 mg/dL (7-18)
[2020-03-26 12:00] VITALS: BP 119/72
[2020-03-26] MEDS: ACETAMINOPHEN 325 MG TABLET PO PRN (15:56)
[2020-03-26 16:00] VITALS: BP 140/81
[2020-03-26 17:51] LABS: GLUCOSE,POINT OF CARE 250 MG/DL (70-110)
[2020-03-26 17:51] LABS: GLUCOSE,POINT OF CARE 188 MG/DL (70-110)
[2020-03-26 20:00] VITALS: BP 139/65
[2020-03-26 23:39] LABS: GLUCOSE,POINT OF CARE 238 MG/DL (70-110)
[2020-03-27] VITALS: BP 148/87
[2020-03-27 01:01] LABS: GLUCOSE,POINT OF CARE 271 MG/DL (70-110)
[2020-03-27] MEDS ORDERED: SODIUM CHLORIDE 0.9% 250 ML IV ONE (03:58)
[2020-03-27 04:00] VITALS: BP 139/75
[2020-03-27] MEDS: INSULIN LISPRO 100 UNITS/ML SQ PRN ×2 (05:53→12:11)
[2020-03-27 06:15] LABS: BASOPHILS % (AUTO) 0.7 % (0.0-2.0); EOSINOPHILS % (AUTO) 5.4 % (1.0-6.0); HEMATOCRIT 28.5 % (41-53); HEMOGLOBIN 9.5 g/dL (13.5-17.5); LYMPHOCYTES # (AUTO) 1.6 K/uL (1.0-4.8); LYMPHOCYTES % (AUTO) 22.9 % (22.0-44.0); MEAN CORPUSCULAR HEMOGLOBIN 30.4 pg (26.0-34.0); MEAN CORPUSCULAR HGB CONC 33.4 G/dL (31.0-37.0); MEAN CORPUSCULAR VOLUME 91 fL (80-100); MONOCYTES # (AUTO) 0.6 K/uL (0.1-1.0); MONOCYTES % (AUTO) 9.5 % (2.0-9.0); NEUTROPHILS # (AUTO) 4.2 K/uL (1.8-7.7); NEUTROPHILS % (AUTO) 61.5 % (40.0-70.0); PLATELET COUNT (AUTO) 160 K/uL (150-450); RED BLOOD CELL COUNT(AUTO) 3.14 MIL/uL (4.50-5.90); RED CELL DISTRIBUTION WIDTH 18.1 % (11.5-14.5)
[2020-03-27 06:36] LABS: GLUCOSE,POINT OF CARE 267 MG/DL (70-110)
[2020-03-27 07:08] LABS: ALANINE AMINOTRANSFERASE 37 U/L (12-78); ALBUMIN 1.6 g/dL (3.4-5.0); ALKALINE PHOSPHATASE 308 U/L (46-116); ANION GAP 7 mmol/L (8-16); ASPARTATE AMINOTRANSFERASE 35 U/L (15-37); BILIRUBIN,TOTAL 0.6 mg/dL (0.1-1.0); C-REACTIVE PROTEIN QUANT 9.54 mg/dL (0.00-0.30); CALCIUM, TOTAL 8.4 mg/dL (8.8-10.5); CARBON DIOXIDE 28 mmol/L (22-29); CHLORIDE 101 mmol/L (98-107); CREATININE 0.79 mg/dL (0.60-1.30); GLOMERULAR FILTR. RATE CALC > 60 mL/min (>60); GLUCOSE,RANDOM 279 mg/dL (70-110); POTASSIUM 3.9 mmol/L (3.5-5.1); SODIUM SERUM 136 mmol/L (136-145); TOTAL PROTEIN, SERUM 6.7 g/dL (6.4-8.2); UREA NITROGEN, BLOOD 20 mg/dL (7-18)
[2020-03-27 08:00] VITALS: BP 121/75
[2020-03-27] MEDS: AMINO ACIDS/PROTEIN HYDROLYS 30 ML TUBE PO SCH (08:15)
[2020-03-27] MEDS: LevETIRAcetam 500 MG in DEXTROSE 5%-WATER 100 ML IV SCH (08:15)
[2020-03-27] MEDS: FAMOTIDINE 10 MG/ML 2 ML VIAL IVP SCH (08:16)
[2020-03-27] MEDS: MULTIVITAMINS, THERAPEUTIC 15 ML UDCUP PO SCH (08:16)
[2020-03-27] MEDS: ASCORBIC ACID 500 MG TABLET PO SCH (08:16)
[2020-03-27] MEDS: CHOLECALCIFEROL (VIT D3) 1,000 UNITS [25 MCG] TABLET PO SCH (08:16)
[2020-03-27] MEDS: INSULIN GLARGINE,HUM.REC.ANLOG 100 UNITS/ML SQ SCH (08:55)
[2020-03-27 12:00] VITALS: BP 131/77
[2020-03-27 16:00] VITALS: BP 119/74
[2020-03-27 16:48] LABS: ABG A-A DIFF O2 139.5 mmHg (10-20.0); ABG BASE EXCESS 4.3 mmol/L (-2.0-3.0); ABG CARBOXYHEMOGLOBIN 0.7 % (0.0-1.5); ABG METHEMOGLOBIN 0.3 % (0.0-1.5); ABG OXYGEN CONTENT 14.2 mL/dL (15.0-23.0); ABG OXYGEN SATURATION 97.2 % (95.0-98.0); ABG OXYHEMOGLOBIN 96.2 % (94.0-100.0); ABG PCO2 42 mmHg (35-45); ABG PH 7.446 (7.35-7.450); ABG TOTAL HEMOGLOBIN 10.4 G/dL (12.0-18.0); PO2, ARTERIAL BG 96.6 mmHg (84.0-92.0); SOURCE, BLOOD GAS ARTERIAL; TEMPERATURE, FAHRENHEIT, BG 99.7 FAHREN (96.0-98.6)
[2020-03-27 16:50] LABS: O2 DEVICE,BLOOD GAS VENTILATOR (ROOM AIR); PEEP,BG 5 cm H2O; SITE, BLOOD GAS LFT RADIAL; VT, ABG 500 ml
[2020-03-27 23:42] LABS: C.DIFF GDH ANTIGEN, Stool Negative (Negative); C.DIFF TOXINS A&B, Stool Negative (Negative)
[2020-03-28 02:59] LABS: GLUCOSE,POINT OF CARE 288 MG/DL (70-110)
[2020-03-28 02:59] LABS: GLUCOSE,POINT OF CARE 272 MG/DL (70-110)
== END 2020-03-27 18:00 | disposition short-term general hospital (02) | DRG 4 ==
LOC: EMS 15:24 → ICUN 02-16 11:22 → ICU 02-16 11:30 → UNDOADMIN 02-16 12:57 → ICUN 02-16 12:57 → ICU 02-18 23:09
PROVIDERS: ADMIT Internal Medicine; ATTEND Internal Medicine
PROC: XW033E5 Introduction of Remdesivir Anti-infective into Peripheral Vein, Percutaneous Approach, New Technology Group 5 (ICD-10-PCS; 2020-02-16)
PROC: 5A1955Z Respiratory Ventilation, Greater than 96 Consecutive Hours (ICD-10-PCS; principal; 2020-02-17)
PROC: 0BH17EZ Insertion of Endotracheal Airway into Trachea, Via Natural or Artificial Opening (ICD-10-PCS; 2020-02-17)
PROC: XW13325 Transfusion of Convalescent Plasma (Nonautologous) into Peripheral Vein, Percutaneous Approach, New Technology Group 5 (ICD-10-PCS; 2020-02-19)
PROC: 0DH60UZ Insertion of Feeding Device into Stomach, Open Approach (ICD-10-PCS; 2020-02-21)
PROC: 0B113F4 Bypass Trachea to Cutaneous with Tracheostomy Device, Percutaneous Approach (ICD-10-PCS; 2020-03-20)
PROC: B54MZZA Ultrasonography of Right Upper Extremity Veins, Guidance (ICD-10-PCS; 2020-03-20)
PROC: 05HY33Z Insertion of Infusion Device into Upper Vein, Percutaneous Approach (ICD-10-PCS; 2020-03-20)
PROC: B51M1ZA Fluoroscopy of Right Upper Extremity Veins using Low Osmolar Contrast, Guidance (ICD-10-PCS; 2020-03-20)
PROC: 0DH63UZ Insertion of Feeding Device into Stomach, Percutaneous Approach (ICD-10-PCS; 2020-03-21)
DX: A41.89 Other specified sepsis (principal); U07.1 COVID-19; E11.65 Type 2 diabetes mellitus with hyperglycemia; E66.01 Morbid (severe) obesity due to excess calories; Z68.42 Body mass index [BMI] 45.0-49.9, adult; R74.01 Elevation of levels of liver transaminase levels; D61.818 Other pancytopenia; I10 Essential (primary) hypertension; J45.909 Unspecified asthma, uncomplicated; D72.810 Lymphocytopenia; N17.0 Acute kidney failure with tubular necrosis; J12.82 Pneumonia due to coronavirus disease 2019; D64.9 Anemia, unspecified; D68.59 Other primary thrombophilia; E11.22 Type 2 diabetes mellitus with diabetic chronic kidney disease; E83.42 Hypomagnesemia; E87.1 Hypo-osmolality and hyponatremia; E87.6 Hypokalemia; E87.70 Fluid overload, unspecified; G93.1 Anoxic brain damage, not elsewhere classified; I12.9 Hypertensive chronic kidney disease with stage 1 through stage 4 chronic kidney disease, or unspecified chronic kidney disease; I46.9 Cardiac arrest, cause unspecified; J80 Acute respiratory distress syndrome; K29.70 Gastritis, unspecified, without bleeding; N18.9 Chronic kidney disease, unspecified; R13.10 Dysphagia, unspecified; Z79.899 Other long term (current) drug therapy; Z79.82 Long term (current) use of aspirin; Z79.4 Long term (current) use of insulin
CPT/HCPCS: 36245; 36569; 36600; 70450; 71275; 76700; 76937; 80074; 82043; 82247; 82248; 82570; 82728; 82805; 83605; 83615; 83735; 84100; 84132; 84145; 84156; 85379; 85384; 85651; 85730; 86140; 86900; 86901; 86927; 87040; 87070; 87081; 87205; 87324; 87426; 87449; 92610; 93005; 94002; 94003; 94660; 95816; 99291; A9575; C9113; G0238; G0378; J0171; J0295; J0690; J0712; J1100; J1644; J1815; J1940; J2060; J2250; J2270; J2543; J2704; J2765; J3010; J3475; J3480; J3490; J7030; J7040; J7050; J7060; 36415-L1; 36415-TC; 71045-TC; U0003